=== PATIENT | female | born 1955 | race Caucasian/White ===

== ENCOUNTER → 2016-07-22 16:21 | Outpatient (CLI) | payer MEDICAID ==
[2015-12-23 10:06] VITALS: BMI 31.8
[~2016-07-22 16:21] MED LIST: ALEVE220 MG; ALEVE220 MG PO; ASPIRIN81 MG PO; ATIVAN0.5 MG PO; BAYER CHEWABLE81 MG PO; BRILINTA90 MG PO; CELEXA20 MG PO; COUMADIN5 MG PO; COUMADIN7.5 MG PO; CYCLOBENZAPRINE10 MG PO; HEMOCYTE PLUS C1 CAP PO; HYDROCODONE-APA1 TAB PO; LIPITOR10 MG PO; PLAVIX75 MG PO; ULTRAM50 MG PO; VOLTAREN100 GM TOPICAL; XANAX0.5 MG PO
== END | disposition home or self-care (01) ==
LOC: D.LABREF 16:21
DX: M17.11 Unilateral primary osteoarthritis, right knee (principal); Z11.8 Encounter for screening for other infectious and parasitic diseases

== ENCOUNTER 2016-07-27 22:08 | Outpatient (CLI) | payer MEDICAID ==
[~2016-07-27] VITALS: Ht 167.6 cm; Wt 83.2 kg
--- NOTE | ~2016-07-27 | HEMODYNAMI ---
PATIENT:ROSSY GREENE MEDICAL RECORD: [id number] : 51 [id number] ADMISSION DATE: 07/28/16 Generatedon:07/28/201614:42 Patient name: ROSSY GREENE Patient #: [id number] SSN: [id number] : 1955 Date of study: 07/28/2016 Page: Of Hemodynamic Procedure Report Patient Data Patient Demographics Procedure consent was obtained First Name: ROSSY Gender: Female Last Name: RAMONA : 1955 Middle Initial: JAGDEEP Age: 61 year(s) Patient #: [id number] Race: SSN: [id number] Additional ID: [id number] Contact details [address]: [address] [place] [address] State: [place] City: [place] Zip code: [address] Past Medical History History of disease Date Diagnosis Comments CAD Admission Admission Data Admission Date: 07/28/2016 Admission Time: 11:14 Arrival Date: 07/28/2016 Arrival Time: 0:00 Admit Source: Emergency Insurance Payor: Medicaid department Room #: D.2114 Height (in.): 65.75 BSA: 1.92 (m2) Height (cm.): 167 BMI: 29.76 (kg/m2) Weight (lbs.): 182.98 Weight (kg.): 83 Lab Results Lab Result Date: 07/28/2016 Lab Result Time: 0:00 Biochemistry Name Units Result Min Max BUN mg/dl 17 --(---*)-- 7 18 Creatinine mg/dl 0.6 --(*---)-- 0.6 1.3 CBC Name Units Result Min Max Hemoglobin g/dl 11.3 *-(----)-- 13.5 17.5 Procedure Procedure Types Cath Procedure Diagnostic Procedure LHC LHC w/Coronaries w/Grafts FFR/IVUS PCI Procedure Coronary Stent Initial Procedure Description Procedure Date Procedure Date: 07/28/2016 Procedure Start Time: 14:20 Procedure End Time: 14:39 Procedure Staff Name Function Jonn Wilson MD Performing Physician Deja Phillip RT Scrub Anne Marie Hamilton RN Nurse Trent Watson RT Expressive Art Therapist María Britt RT Monitor Procedure Data Cath Procedure Fluoroscopy Diagnostic fluoroscopy Total fluoroscopy Time: 5.7 time: 5.7 min min Diagnostic fluoroscopy Total fluoroscopy dose: 752 dose: 752 mGy mGy Contrast Material Contrast Material Type Amount (ml) Isovue 300 119 Entry Location Entry Primary Successful Side Size Upsize Upsize Entry Closure Succes sful Closure Location (Fr) 1 (Fr) 2 (Fr) Remarks Device Remarks Femoral Right 5 Fr 6 Fr artery Short Estimated blood loss: 10 ml Diagnostic catheters Device Type Used For End Catheter Placement Cordis 5Fr Pigtail LV Angiography Catheter (MP) Cordis 5Fr JL 4.0 Left Coronary Catheter (MP) Angiography Cordis 5Fr 3DRC Catheter Right Coronary (MP) Angiography Cordis Infinity 5Fr AR 2 SVG Angiography MOD catheter Procedure Complications No complications Procedure Medications Medication Administration Route Dosage Oxygen NC 2 l/min Lidocaine 2% added to field 20 Heparin Flush Bag added to field 2 bags (1000units/500ml NS) Versed I.V. 1 mg Fentanyl I.V. 50 mcg Versed I.V. 1 mg Fentanyl I.V. 50 mcg Versed I.V. 1 mg Fentanyl I.V. 50 mcg Fentanyl I.V. 50 mcg Heparin Bolus I.V. 4000 units Integrilin (Bolus I.V. 7.3 ml 2mg/ml) Plavix P.O. 600 mg Hemodynamics Rest BSA: 1.92 (m2) HGB: 11.3 (g/dl) O2 Consumption: Estimated: 175.22 (ml/min) O2 Co nsumption indexed: Estimated:91.26 (ml/min/m) Heart Rate: 63 (bpm) Snapshots Pre Cath Intra NCS Post Cath Vital Signs Time Heart Resp SPO2 NIBP (mmHg) Rhythm Pain Sedation Rate (ipm) (%) Status Level (bpm) 13:45:33 64 19 97 141/74(115) NSR 0 (11) 10(A) , No pain 13:49:53 58 17 97 140/66(104) NSR 0 (11) 10(A) , No pain 13:54:11 61 16 96 124/68(83) NSR 0 (11) 10(A) , No pain 13:58:24 60 14 97 126/68(99) NSR 0 (11) 10(A) , No pain 14:02:37 62 15 97 116/69(91) NSR 0 (11) 10(A) , No pain 14:06:49 73 19 95 118/63(86) NSR 0 (11) 10(A) , No pain 14:10:59 75 17 95 117/70(89) NSR 0 (11) 10(A) , No pain 14:15:11 74 14 95 117/65(98) NSR 0 (11) 10(A) , No pain 14:19:21 72 16 96 112/65(82) NSR 0 (11) 10(A) , No pain 14:23:29 80 16 97 132/70(93) NSR 0 (11) 9(A) , No pain 14:27:43 82 16 97 119/72(101) NSR 0 (11) 9(A) , No pain 14:31:55 82 16 97 121/66(87) NSR 0 (11) 9(A) , No pain 14:36:07 83 16 97 118/65(90) NSR 0 (11) 9(A) , No pain 14:38:46 78 16 97 116/67(88) NSR 0 (11) 10(A) , No pain Medications Time Medication Route Dose Verified Delivered Reason Notes Effectiveness by by 13:44:30 Oxygen NC 2 Jonn Anne Marie Per physician l/min Steve Hamilton RN 13:44:37 Lidocaine 2% added 20ml Jonn [place] used for to vial Steve Wilson MD procedure field 13:44:46 Heparin Flush added 2 Jonn Jonn used for Bag to bags Steve Wilson MD procedure (1000units/500ml field NS) 14:16:47 Versed I.V. 1 mg Jonn Anne Marie for sedation Steve Hamilton RN 14:16:53 Fentanyl I.V. 50 Jonn Anne Marie for sedation mcg Steve Hamilton RN 14:18:10 Versed I.V. 1 mg Jonn Anne Marie for sedation Steve Hamilton RN 14:18:17 Fentanyl I.V. 50 Jonn Anne Marie for sedation mcg Steve Hamilton RN 14:20:01 Versed I.V. 1 mg Jonn Anne Marie for sedation Steve Hamilton RN 14:20:07 Fentanyl I.V. 50 Jonn Anne Marie for sedation mcg Steve Hamilton RN 14:23:32 Fentanyl I.V. 50 Jonn Anne Marie for sedation mcg Steve Hamilton RN 14:33:43 Heparin Bolus I.V. 4000 Jonn Anne Marie for dose units Steve Hamilton RN anticoagulation verified wtih dr wilson 14:34:39 Integrilin I.V. 7.3 Jonn Anne Marie for (Bolus 2mg/ml) ml Steve Hamilton RN antiplatelet therapy 14:41:17 Plavix P.O. 600 Jonn Anne Marie for mg Steve Hamilton RN antiplatelet therapy Procedure Log Time Note 13:20:08 Trent Watson RT(R) sent for patient. Start room use. 13:39:35 Admit Source: Emergency department 13:40:05 Diagnostic Cath status Elective 13:40:48 Time tracking: Regular hours 13:40:54 Plan of Care:Hemodynamics will remain stable., Cardiac rhythm will remain stable., Comfort level will be maintained., Respiratory function will remain adequate., Patient/ family verbilizes understanding of procedure., Procedure tolerated without complication., Recovers from procedure without complications.. 13:41:11 Patient received from ED to CCL 1 Alert and oriented. Tansferred to table in Supine position. 13:41:12 Warm blankets applied, and sania hugger turned on for patient comfort. 13:41:13 Correct patient and procedure confirmed by team. 13:41:15 Signed procedure consent form obtained from patient. 13:41:28 H&P Date Dictated: 07/28/2016 Emergent; H&P N/A. 13:41:36 Pre-procedure instructions explained to patient. 13:41:40 Family in waiting room. 13:41:42 Patient NPO since Midnight. 13:41:49 Is the patient allergic to Iodine/contrast media? No. 13:41:52 Is patient on blood thinner?No 13:41:56 Patient diabetic? No. 13:42:00 Previous problem with sedation/anesthesia? No ? 13:42:06 Previous problem with sedation/anesthesia? Yes nauseated 13:42:09 Snore? Yes 13:42:11 Sleep apnea? No 13:42:12 Deviated septum? No 13:42:13 Opens mouth fully? Yes 13:42:15 Sticks out tongue? Yes 13:42:20 Dentures? Yes top in 13:44:20 Vital chart was started 13:44:30 Oxygen 2 l/min NC was given by Anne Marie Hamilton RN; Per physician; 13:44:37 Lidocaine 2% 20ml vial added to field was given by Jonn Wilson MD; used for procedure; 13:44:46 Heparin Flush Bag (1000units/500ml NS) 2 bags added to field was given by Jonn Wilson MD; used for procedure; 13:45:42 Patient pain scale 0/10 ?. 13:45:52 IV patent on arrival in right antecubital with 0.9% NaCl at [facility]. 13:46:27 Lab results completed and on chart. 13:46:59 Lab Result : Creatinine 0.6 mg/dl 13:46:59 Lab Result : BUN 17 mg/dl 13:46:59 Lab Result : Hemoglobin 11.3 g/dl 13:47:00 ECG and BP/O2 sat monitors applied to patient. 13:47:05 Right groin area was prepped with chlora-prep and draped in sterile fashion 13:47:07 Alarms reviewed by R. N. 13:47:07 Sharps counted by scrub and verified by R.N. 13:47:14 Baseline sample Acquired. 13:47:20 Rhythm: sinus rhythm 13:47:22 Full Disclosure recording started 13:47:43 Physician paged 13:48:40 Use device set Femoral Dx 13:56:53 Acist Syringe opened to sterile field. 13:56:54 Bag Decanter opened to sterile field. 13:56:54 Cardinal Cath Pack opened to sterile field. 13:56:55 Terumo 5Fr [place] Sheath opened to sterile field. 13:56:55 St Taco 260cm J .035 wire opened to sterile field. 13:57:02 Acist Hand Control opened to sterile field. 13:57:03 Acist Manifold opened to sterile field. 13:57:04 Cordis Infinity 5Fr Multipack catheter opened to sterile field. 13:57:05 Tegaderm 4 x 4 opened to sterile field. 13:59:53 Patient Height : 167 cm 14:00:01 Patient Weight : 83 kg 14:00:13 Arrival Date: 07/28/2016 12:00:00 AM 14:00:35 Insurance Payor : Medicaid 14:01:03 Procedure type changed to Cath procedure, Diagnostic procedure, LHC, LHC w/Coronaries w/Grafts, FFR/IVUS, PCI procedure, Coronary Stent Initial 14:03:00 Zero performed for pressure channel P1 14:16:27 Physician arrived 14:16:27 --------ALL STOP TIME OUT------ 14:16:28 Final Timeout: patient, procedure, and site verified with staff and physician. All members of the team are in agreement. 14:16:34 Right groin site verified by team. 14:16:40 Physical assessment completed. ASA score P 2 - A patient with mild systemic disease as per Jonn Wilson MD. 14:16:44 Sedation plan: IV Moderate Sedation Versed, Fentanyl 14:16:47 Versed 1 mg I.V. was given by Anne Marie Hamilton RN; for sedation; 14:16:53 Fentanyl 50 mcg I.V. was given by Anne Marie Hamilton RN; for sedation; 14:18:10 Versed 1 mg I.V. was given by Anne Marie Hamilton RN; for sedation; 14:18:17 Fentanyl 50 mcg I.V. was given by Anne Marie Hamilton RN; for sedation; 14:20:01 Versed 1 mg I.V. was given by Anne Marie Hamilton RN; for sedation; 14:20:03 Procedure started. 14:20:07 Fentanyl 50 mcg I.V. was given by Anne Marie Hamilton RN; for sedation; 14:20:18 Local anesthetic to right femoral artery with Lidocaine 2% by Jonn Wilson MD.INITIAL ACCESS ONLY 14:20:28 A 5 Fr sheath was inserted into the Right Femoral artery 14:20:58 A Cordis 5Fr Pigtail Catheter (MP) was advanced over the wire and used for LV Angiography. 14:21:25 LV Function : Normal 14:21:32 EF : 55 % 14:21:41 Catheter removed. 14:21:58 A Cordis 5Fr JL 4.0 Catheter (MP) was advanced over the wire and used for Left Coronary Angiography. 14:22:27 Catheter removed. 14:23:25 A Cordis 5Fr 3DRC Catheter (MP) was advanced over the wire and used for Right Coronary Angiography. 14:23:32 Fentanyl 50 mcg I.V. was given by Anne Marie Hamilton RN; for sedation; 14:23:59 Catheter removed. 14:26:19 A Cordis Infinity 5Fr AR 2 MOD catheter was advanced over the wire and used for SVG Angiography.RCA 14:26:20 Catheter removed. 14:27:34 PushSpring BasixCompak Inflation Kit opened to sterile field. 14:27:34 Chegue.látronic Launcher 6Fr AR 2.0 SH guide catheter opened to sterile field. 14:27:35 Ob Hospitalist Groupumo 6Fr [place] Sheath opened to sterile field. 14:27:35 NEXAGEisper J 300cm 0.014 guide wire opened to sterile field. 14:27:36 Sedicii [place] IVUS Catheter opened to sterile field. 14:28:01 Sheath upsized to a 6 Fr Short. 14:28:12 ACC PCI Site: pRCA has ?% stenosis. 14:28:21 6 Fr AR 2 guide catheter was inserted over the wire 14:28:58 Guide catheter removed. 14:29:12 Medtronic Launcher 6Fr AR 1.0 SH guide catheter opened to sterile field. 14:29:42 6 Fr AR! guide catheter was inserted over the wire 14:29:50 whisper wire advanced. 14:30:59 Wire advanced across lesion. 14:31:08 IVUS catheter advanced over wire. 14:31:13 IVUS pass to RCA lesion performed. 14:32:26 IVUS catheter removed over wire. 14:33:43 Heparin Bolus 4000 units I.V. was given by Anne Marie Hamilton RN; for anticoagulation; dose verified wt dr wilson 14:33:48 ACC PCI Site: dRCA has 72% stenosis. 14:33:50 ACC Pre-intervention LEORA Flow is 3. 14:34:39 Integrilin (Bolus 2mg/ml) 7.3 ml I.V. was given by Anne Marie Hamilton RN; for antiplatelet therapy; 14:34:46 Inflation Number: 1 A Medtronic Resolute 3.0 X 12 stent was prepped and advanced across the Dist RCA. The stent was deployed at 17 ALEXANDREA for 0:10 (min:sec). 14:36:07 Cordis 6Fr Exoseal opened to sterile field. 14:36:19 Wire removed. 14:36:20 Guide catheter removed. 14:36:29 Procedure ended.(Physican Out) 14:36:47 Fluoroscopy time 05.70 minutes. 14:36:54 Flurop Dose total: 752 14:36:54 Fluoroscopy dose: 752 mGy 14:37:01 Contrast amount:Isovue 300 119ml. 14:37:04 Sharps counted by scrub and verified by R.N. 14:37:09 Insertion/operative site no bleeding no hematoma. 14:37:15 Post-op/insertion site Right Femoral artery dressed using a 4 x 4 and Tegaderm. 14:37:19 Post right femoral artery:stable 14:37:22 Post Procedure Pulses reassessed and unchanged 14:37:29 Post-procedure physical assessment completed. ASA score P 2 - A patient with mild systemic disease as per Jonn Wilson MD. 14:37:33 Post procedure rhythm: unchanged. 14:37:37 Estimated blood loss: 10 ml 14:37:39 Post procedure instruction explained to patient.Patient verbalizes understanding. 14:37:59 Procedure and supply charges have been captured, reviewed, submitted and are correct. 14:38:52 Procedure Complication : No complications 14:38:55 Vital chart was stopped 14:38:57 See physician's report for complete and final results. 14:39:03 Report given to [facility]. 14:39:08 Patient transfered to [facility] with Bed. 14:39:10 Procedure ended. 14:39:10 Full Disclosure recording stopped 14:39:20 ACC-PCI Only Patient was given prescriptions, or instructed by Jonn Wilson MD to start/continue the following medications upon discharge: Plavix 14:39:21 End room use (Document Last) 14:41:17 Plavix 600 mg P.O. was given by Anne Marie Hamilton RN; for antiplatelet therapy; Intervention Summary Intervention Notes Time ActionType Lesion and Equipment Action# Pressure Duration Attributes Used 14:34:46 Place stent Dist RCA Medtronic 1 17 00:10 Resolute 3.0 X 12 stent Device Usage Item Name Manufacture Quantity Catalog Hospital Part Current Minimal Lot# / Number Charge Number Stock Stock Serial# Code Acist Acist 1 18515 444655 399674 790150 20 Syringe Medical Systems Inc Bag Microtek 1 2002S 693480 18665 043266 5 Decanter Medical Inc. Cardinal Cardinal 1 [id number] 295818 96655 415659 5 Cath Pack Health Terumo 5Fr Terumo 1 OFF742 991456 897476 080490 [address] [place] [address] Taco St Taco 1 666604 828979 979302 282149 30 260cm J .035 wire Acist Hand Acist 1 15433 321647 262256 299962 5 Control Medical Systems Inc Acist Acist 1 24761 629130 823743 000298 5 Manifold Medical Systems Inc Cordis Cardinal 1 [id number] 547828 97796 308231 30 Infinity Health 5Fr Multipack catheter Tegaderm 4 3M 1 1626W 252381 507676 860334 5 x 4 Cordis 5Fr Cardinal 1 759644 5 Pigtail Health Catheter (MP) Cordis 5Fr Cardinal 1 034251 5 JL 4.0 Health Catheter (MP) Cordis 5Fr Cardinal 1 691521 5 3DRC Health Catheter (MP) Cordis Cardinal 1 [id number] 430887 698186 574051 20 Infinity Health 5Fr AR 2 MOD catheter Merit Merit 1 [id number] 139423 827620 359231 15 [facility] Medical Inflation Kit Medtronic Medtronic 1 [id number] 343860 97832 856444 1 Launcher 6Fr AR 2.0 SH guide catheter Terumo 6Fr Terumo 1 [id number] 340049 469108 551141 40 [place] Sheath Moore Moore 1 [id number] 233909 038024 839089 5 Whisper J Vascular 300cm 0.014 guide wire [place] 1 [id number] 998652 134692 044711 8 [place] IVUS Catheter Medtronic Medtronic 1 [id number] 131693 77063 673157 1 Launcher 6Fr AR 1.0 SH guide catheter Medtronic Medtronic 1 [id number] 651500 802707 2 [id number] Resolute 3.0 X 12 stent Cordis 6Fr Cardinal 1 [id number] 718206 703996 813087 10 Exoseal Health Signature Audit [place] Stage Time Signature Unsigned Intra-Procedure 07/28/2016 María Britt 2:42:15 PM RT(R) Signatures Monitor : María Britt Signature : RT Date : Time : [address] [address]
[~2016-07-27 22:08] MED LIST changes: -ATIVAN0.5 MG PO
[2016-07-27 22:41] LABS: BASOPHILS 0.1 % (0.0-2.0); EOSINOPHILS 1.9 % (0-7); HEMATOCRIT 38.2 % (36.0-48.0); HEMOGLOBIN 12.1 g/dL (12-16); IMMATURE GRANULOCYTES 0.2 % (0-5); LYMPHOCYTES 27.3 % (15-50); MCH 25.7 pg (26.0-34.0); MCHC 31.7 g/dL (31.0-37.0); MCV 81.3 fL (80.0-100.0); MEAN PLATELET VOLUME 9.8 fL (7.4-10.4); MONOCYTES 8.9 % (2-11); NEUTROPHILS 61.6 % (40-80); PLATELET COUNT 275 10x3/uL (130-400); RDW 14.1 % (11.5-14.5); WBC 10.1 10x3/uL (4.8-10.8)
[2016-07-27 23:02] LABS: ALBUMIN 3.2 g/dL (3.4-5.0); ALKALINE PHOSPHATASE 105 U/L (46-116); ALT (SGPT) 21 U/L (10-68); CALC OSMOLALITY 278 mosm/kg (275-300); CALCIUM 8.7 mg/dL (8.5-10.1); CARBON DIOXIDE 29.2 mmol/L (21.0-32.0); CHLORIDE - SERUM 103 mmol/L (98-107); CREATININE - SERUM 0.7 mg/dL (0.6-1.3); GLUCOSE 105 mg/dL (74-106); POTASSIUM - SERUM 3.6 mmol/L (3.5-5.1); PROTEIN - SERUM 6.9 g/dL (6.4-8.2); SODIUM 138 mmol/L (136-145); UREA NITROGEN 20 mg/dL (7-18); eGFR NON AFRICAN AMERICAN 90 mL/min (90-120)
[2016-07-27 23:13] LABS: CHOL - HDL RATIO 3.6 ratio (2.3-4.1); CHOLESTEROL, TOTAL 207 mg/dL (0-200); CKMB 0.9 U/L (0.0-3.6); CREATINE KINASE 97 UL (21-215); HDL CHOLESTEROL 58 mg/dL (32-96); LDL CHOLESTEROL 128 mg/dL (0-100); LDL-HDL RATIO 2.2 ratio (1.5-3.5); TRIGLYCERIDE 109 mg/dL (30-200); TROPONIN-I < 0.017 ng/mL (0.000-0.060)
[2016-07-28 04:01] VITALS: BP 128/68; Ht 167.6 cm; Wt 83.2 kg
[2016-07-28 07:17] LABS: CKMB 0.5 U/L (0.0-3.6); CREATINE KINASE 70 UL (21-215); TROPONIN-I < 0.017 ng/mL (0.000-0.060)
[2016-07-28 08:27] LABS: BASOPHILS 0.1 % (0.0-2.0); EOSINOPHILS 2.4 % (0-7); HEMATOCRIT 36.3 % (36.0-48.0); HEMOGLOBIN 11.3 g/dL (12-16); IMMATURE GRANULOCYTES 0.1 % (0-5); MCH 25.6 pg (26.0-34.0); MCHC 31.1 g/dL (31.0-37.0); MCV 82.1 fL (80.0-100.0); MONOCYTES 8.7 % (2-11); NEUTROPHILS 53.7 % (40-80); PLATELET COUNT 267 10x3/uL (130-400); RBC 4.42 10x6/uL (4.00-5.40); RDW 14.3 % (11.5-14.5)
[2016-07-28 08:34] LABS: CALC OSMOLALITY 288 mosm/kg (275-300); CARBON DIOXIDE 26.2 mmol/L (21.0-32.0); CHLORIDE - SERUM 108 mmol/L (98-107); CREATININE - SERUM 0.6 mg/dL (0.6-1.3); GLUCOSE 94 mg/dL (74-106); POTASSIUM - SERUM 3.7 mmol/L (3.5-5.1); SODIUM 144 mmol/L (136-145); UREA NITROGEN 17 mg/dL (7-18); eGFR NON AFRICAN AMERICAN > 90 mL/min (90-120)
[2016-07-28 08:49] LABS: WBC 7.2 10x3/uL (4.8-10.8)
[2016-07-28 12:36] LABS: CKMB 0.4 U/L (0.0-3.6); CREATINE KINASE 68 UL (21-215); TROPONIN-I < 0.017 ng/mL (0.000-0.060)
--- NOTE | 2016-07-28 12:53 | NUR ---
RECIVED FROM ER PER WC TO ROOM 2114. FAMILY AT SIDE. ADMIT PER RN.
--- NOTE | 2016-07-28 13:01 | NUR ---
TRANSFER FROM ER BY W/Ángel GONZALEZ TO ROOM. CALL LIGHT IN REACH. WILL CONT. PLAN O CARE.
--- NOTE | 2016-07-28 13:28 | NUR ---
TO KNOT CUTTER PER BED
--- NOTE | 2016-07-28 14:45 | NUR ---
RETURN FROM KENNEL AIDE PER BED. RT JOCELYNE RUBI D/D. PULSE PALP
[2016-07-28 16:00] VITALS: BP 139/66
[2016-07-28] MEDS ORDERED: PLAVIX75 MG PO (16:09)
--- NOTE | 2016-07-28 17:05 | NUR ---
WITHOUT CHANGES NOTED AT THIS TIME.
--- NOTE | 2016-07-31 16:40 | OP ---
PATIENT NAME: ROSSY GRENEE MEDICAL RECORD: [id number] :51 LOCATION:D.CAT ADMISSION DATE: SURGEON: ALEXANDER ROYAL MD DATE OF OPERATION: 07/28/2016 PROCEDURES: 1. PTCA stent, RCA through saphenous vein graft. 2. Intravascular ultrasound, RCA. 3. Left heart catheterization. 4. Selective coronary angiography. 5. Left ventriculogram. 6. Vein graft angiography. INDICATION: Angina, unstable, coronary artery disease. PROCEDURE IN DETAIL: After informed consent was obtained and after a detailed explanation of the risks, benefits as well as alternative therapies, the patient elected to proceed with angiogram and angioplasty. The right femoral area was prepped and draped in normal sterile fashion. The right femoral artery was cannulated via modified Seldinger technique with placement of 6-Mohawk sheath. All catheters exchanged through this sheath. FINDINGS: Left ventriculogram was performed in standard 30-degree HALLMAN view, reveals preserved cardiac wall motion, ejection fraction 55%. SELECTIVE CORONARY ANGIOGRAPHY: 1. Left main is with no significant angiographic disease. 2. Left anterior descending has mild irregularities, but no flow-limiting stenosis. 3. The left circumflex shows moderate irregularities, but no flow-limiting stenosis. 4. Right coronary artery is totally occluded proximally. 5. Vein graft to the right coronary artery is patent; however, there is a 74% stenosis confirmed by intravascular ultrasound after the patent vein graft. PERCUTANEOUS TRANSLUMINAL CORONARY ANGIOPLASTY STENT OF THE RIGHT CORONARY ARTERY THROUGH THE VEIN GRAFT: Stent used was a 3.0 x 12 mm Resolute. Result was 0% residual stenosis. OVERALL IMPRESSION: Successful percutaneous transluminal coronary angioplasty stent of the right coronary artery through the vein graft going from 74% initial stenosis to 0% residual. TRANSINT:[id number] Voice Confirmation ID: [id number] DOCUMENT ID: [id number] ALEXANDER ROYAL MD at 1640 CC: [id number] DICTATION DATE: 07/28/16 1442 VIDEO GAME ENGINEER: 07/28/16 1500 DEP CLI 07/28/16 [place] [id number]
== END 2016-07-28 19:05 | disposition home or self-care (01) ==
LOC: OBSVTIME → D.CATH 22:08 → D.ER 22:08 → EDSTATUS 07-28 10:00 → D.CATH 07-28 11:14 → D.M2 07-28 11:14 → OBSVTIME 07-28 11:14 → D.M2 07-28 11:14 → D.CATH 07-28 19:05 → D.M2 07-28 19:05
PROVIDERS: Emergency Medicine; Internal Medicine Interventional Cardiology
DX: I25.110 Atherosclerotic heart disease of native coronary artery with unstable angina pectoris (principal); I10 Essential (primary) hypertension; Z86.73 Personal history of transient ischemic attack (TIA), and cerebral infarction without residual deficits; Z79.82 Long term (current) use of aspirin; Z79.899 Other long term (current) drug therapy; Z87.891 Personal history of nicotine dependence

== ENCOUNTER 2016-07-30 13:08 | Observation (INO) | payer MEDICAID ==
[~2016-07-30] VITALS: Ht 167.6 cm; Wt 83.5 kg
--- NOTE | ~2016-07-30 | HEMODYNAMI ---
PATIENT:ROSSY GREENE MEDICAL RECORD: [id number] : 51 LOCATION:[facility] D.[address] [facility]# [id number] ADMISSION DATE: 07/30/16 Generatedon:07/31/201614:07 Patient name: ROSSY GREENE Patient #: [id number] SSN: [id number] : 1955 Date of study: 07/31/2016 Page: Of Hemodynamic Procedure Report Patient Data Patient Demographics Procedure consent was obtained First Name: ROSSY Gender: Female Last Name: RAMONA : 1955 Middle Initial: JAGDEEP Age: 61 year(s) Patient #: [id number] Race: SSN: [id number] Additional ID: [id number] Contact details Address: [address] [place] [address] State: [place] City: [place] Zip code: [address] Past Medical History History of disease Date Diagnosis Comments CAD Admission Admission Data Admission Date: 07/30/2016 Admission Time: 19:00 Arrival Date: 07/31/2016 Arrival Time: 0:00 Admit Source: Other Insurance Payor: Medicare Room #: D.2121 Height (in.): 66 BSA: 1.93 (m2) Height (cm.): 167.64 BMI: 29.54 (kg/m2) Weight (lbs.): 183 Weight (kg.): 83.01 Lab Results Lab Result Date: 07/31/2016 Lab Result Time: 0:00 Biochemistry Name Units Result Min Max BUN mg/dl 16 --(---*)-- 7 18 Creatinine mg/dl 0.7 --(*---)-- 0.6 1.3 CBC Name Units Result Min Max Hemoglobin g/dl 12.6 -*(----)-- 13.5 17.5 Procedure Procedure Types Cath Procedure Diagnostic Procedure LHC LHC w/Coronaries w/Grafts Procedure Description Procedure Date Procedure Date: 07/31/2016 Procedure Start Time: 13:49 Procedure End Time: 14:04 Procedure Staff Name Function Morena Matos RT Scrub Yaakov Ibrahim RN Nurse Srinivas Medina RN Biod[employer]el Plant Operations Engineer María Britt RT Monitor Kiko Rosales MD Performing Physician Procedure Data Cath Procedure Fluoroscopy Diagnostic fluoroscopy Total fluoroscopy Time: 4.6 time: 4.6 min min Diagnostic fluoroscopy Total fluoroscopy dose: 3.4 dose: 3.4 mGy mGy Contrast Material Contrast Material Type Amount (ml) Isovue 300 70 Entry Location Entry Primary Successful Side Size Upsize Upsize Entry Closure Succes sful Closure Location (Fr) 1 (Fr) 2 (Fr) Remarks Device Remarks Femoral Right 5 Fr Exoseal artery Estimated blood loss: 10 ml Diagnostic catheters Device Type Used For End Catheter Placement Cordis 5Fr JL 4.0 Procedure Catheter (MP) Cordis 5Fr 3DRC Catheter Procedure (MP) Cordis 5Fr Pigtail Procedure Catheter (MP) Cordis Infinity 5Fr MPA-2 Procedure catheter Cordis Infinity 5Fr AR 2 Procedure MOD catheter Procedure Complications No complications Procedure Medications Medication Administration Route Dosage Oxygen NC 2 l/min Lidocaine 2% added to field 20 Heparin Flush Bag added to field 2 bags (1000units/500ml NS) 0.9% NaCl I.V. 100 ml/hr Versed I.V. 1 mg Fentanyl I.V. 50 mcg Versed I.V. 1 mg Fentanyl I.V. 50 mcg Versed I.V. 1 mg Fentanyl I.V. 50 mcg Hemodynamics Rest BSA: 1.93 (m2) HGB: 12.6 (g/dl) O2 Consumption: Estimated: 172.31 (ml/min) O2 Co nsumption indexed: Estimated:89.28 (ml/min/m) Heart Rate: 58 (bpm) Pressure Samples Time Site Value (mmHg) Purpose Heart Use Rate(bpm) 13:55 LV 113/13,19 Snapshot 71 13:56 AO 119/67(91) Pullback 83 13:56 LV 107/17,21 Pullback 83 Gradients Valve Time Site 1 Site 2 Mean SEP/DFP Peak To Heart Use (mmHg) (sec/min) Peak Rate (mmHg) (bpm) Aortic 13:56 LV AO 0 15 0 83 107/17,21 119/67(91) Calculations Valve P-P Mean Valve Index Valve Source Name Gradient Area Flow (cm2) Aortic 0 0 0 0 Snapshots Pre Cath Intra NCS Post Cath Vital Signs Time Heart Resp SPO2 etCO2 IV3doxw NIBP Rhythm Pain Sedation Rate (ipm) (%) (mmHg) (mmHg) (mmHg) Status Level (bpm) 13:44:15 58 16 99 0 0 116/57(87) NSR 0 (11) 10(A) , No pain 13:48:31 64 14 98 0 0 106/52(72) NSR 0 (11) 10(A) , No pain 13:52:39 73 16 98 0 0 112/62(79) NSR 0 (11) 9(A) , No pain 13:56:51 72 17 95 0 0 107/61(82) NSR 0 (11) 9(A) , No pain 14:01:00 75 18 99 0 0 117/57(82) NSR 0 (11) 9(A) , No pain 14:03:38 74 16 97 0 0 99/51(79) NSR 0 (11) 10(A) , No pain Medications Time Medication Route Dose Verified Delivered Reason Notes Effe ctiveness by by 13:39:41 Oxygen NC 2 Jonn Buffie used for l/min Steve Ibrahim RN procedure 13:39:50 Lidocaine 2% added 20ml Kiko Kiko for local to vial [facility] anesthetic field MD MURRAY 13:40:30 Heparin Flush added 2 Kiko Kiko used for Bag to bags [facility] procedure (1000units/500ml field MD MURRAY NS) 13:40:47 0.9% NaCl I.V. 100 Kiko Hoganie Per ml/hr St. Ole Ibrahim RN physician 13:46:13 Versed I.V. 1 mg K[address]ie for [facility]. Ole Ibrahim RN sedation 13:46:19 Fentanyl I.V. 50 K[address] for mcg [facility] Ole Ibrahim RN sedation 13:50:49 Versed I.V. 1 mg Kiko Edisonie for [facility] Ole Ibrahim RN sedation 13:50:53 Fentanyl I.V. 50 K[address] for mcg [facility] Ole Ibrahim RN sedation 13:58:08 Versed I.V. 1 mg Kiko [address]ie for [facility] Ole Ibrahim RN sedation 13:58:12 Fentanyl I.V. 50 K[address] for mcg [facility] Ole Ibrahim RN sedation Procedure Log Time Note 13:24:17 Admit Source: Other 13::20 Arrival Date: 07/31/2016 12:00:00 AM 13:27:30 Lab Result : BUN 16 mg/dl 13::30 Lab Result : Hemoglobin 12.6 g/dl 13:27:30 Lab Result : Creatinine 0.7 mg/dl 13::44 Diagnostic Cath Status : Salvage 13:28:42 Srinivas Medina RN sent for patient. Start room use. 13::44 Time tracking: Regular hours 13:28:50 Plan of Care:Hemodynamics will remain stable., Cardiac rhythm will remain stable., Comfort level will be maintained., Respiratory function will remain adequate., Patient/ family verbilizes understanding of procedure., Procedure tolerated without complication., Recovers from procedure without complications.. 13:29:32 Patient received from Med II to CCL 1 Alert and oriented. Tansferred to table in Supine position. 13:29:36 Warm blankets applied, and sania hugger turned on for patient comfort. 13:29:37 Correct patient and procedure confirmed by team. 13:29:41 Signed procedure consent form obtained from patient. 13:29:50 H&P Date Dictated: 07/31/2016 Within 30 days and on chart.. 13:29:52 Pre-procedure instructions explained to patient. 13:29:54 Family in waiting room. 13:29:56 Patient NPO since Midnight. 13:30:06 Is the patient allergic to Iodine/contrast media? No. 13:30:08 Is patient on blood thinner?Yes 13:30:12 ACC The patient was administered the following blood thiners within the last 24 hours: ACCPlavix 13:30:15 Patient diabetic? No. 13:30:18 Snore? Yes 13:30:28 Dentures? Yes in tight 13:30:32 Sleep apnea? No 13:30:33 Deviated septum? No 13:30:34 Opens mouth fully? Yes 13:30:35 Sticks out tongue? Yes 13:30:39 Airway obstruction? No ? 13:31:06 Patient pain scale 0/10 ?. 13:31:17 IV patent on arrival in right forearm with 0.9% NaCl at O. 13:31:46 Lab results completed and on chart. 13:39:06 Right groin area was prepped with chlora-prep and draped in sterile fashion 13:39:08 Alarms reviewed by R. N. 13:39:09 Sharps counted by scrub and verified by R.N. 13:39:20 Use device set Femoral Dx 13:39:21 Acist Syringe opened to sterile field. 13:39:22 Bag Decanter opened to sterile field. 13:39:22 Cardinal Cath Pack opened to sterile field. 13:39:23 Terumo 5Fr Gila Bend Sheath opened to sterile field. 13:39:23 St Taco 260cm J .035 wire opened to sterile field. 13:39:24 Acist Hand Control opened to sterile field. 13:39:25 Acist Manifold opened to sterile field. 13:39:26 Cordis Infinity 5Fr Multipack catheter opened to sterile field. 13:39:26 Tegaderm 4 x 4 opened to sterile field. 13:39:41 Oxygen 2 l/min NC was given by Yaakov Ibrahim RN; used for procedure; 13:39:50 Lidocaine 2% 20ml vial added to field was given by Kiko Rosales MD; for local anesthetic; 13:40:30 Heparin Flush Bag (1000units/500ml NS) 2 bags added to field was given by Kiko Rosales MD; used for procedure; 13:40:47 0.9% NaCl 100 ml/hr I.V. was given by Yaakov Ibrahim RN; Per physician; 13:43:09 ECG and BP/O2 sat monitors applied to patient. 13:43:10 Vital chart was started 13:43:11 Baseline sample Acquired. 13:43:14 Rhythm: sinus rhythm 13:43:15 Full Disclosure recording started 13:43:20 Physician paged 13:43:56 Patient Weight : 183 lbs 13:43:58 Patient Height : 66 inches 13:44:23 Insurance Payor : Medicare 13:45:29 Physician arrived 13:45:30 --------ALL STOP TIME OUT------ 13:45:31 Final Timeout: patient, procedure, and site verified with staff and physician. All members of the team are in agreement. 13:45:33 Right groin site verified by team. 13:45:42 Physical assessment completed. ASA score P 2 - A patient with mild systemic disease as per Kiko Rosales MD. 13:45:46 Sedation plan: IV Moderate Sedation Versed, Fentanyl 13:46:13 Versed 1 mg I.V. was given by Yaakov Ibrahim RN; for sedation; 13:46:19 Fentanyl 50 mcg I.V. was given by Yaakov Ibrahim RN; for sedation; 13:48:37 Zero performed for pressure channel P1 13:48:44 Zero performed for pressure channel P1 13:48:59 Zero performed for pressure channel P1 13:49:10 Procedure started. 13:49:36 Local anesthetic to right femoral artery with Lidocaine 2% by Kiko Rosales MD.INITIAL ACCESS ONLY 13:50:49 Versed 1 mg I.V. was given by Yaakov Ibrahim RN; for sedation; 13:50:53 Fentanyl 50 mcg I.V. was given by Yaakov Ibrahim RN; for sedation; 13:50:58 A 5 Fr sheath was inserted into the Right Femoral artery 13:51:05 J wire advanced. 13:51:21 A Cordis 5Fr JL 4.0 Catheter (MP) was advanced over the wire and used for Procedure. 13:51:33 LCA angiography performed. 13:52:16 Catheter removed. 13:52:26 A Cordis 5Fr 3DRC Catheter (MP) was advanced over the wire and used for Procedure. 13:53:27 RCA angiography performed. 13:54:16 Catheter removed. 13:54:34 A Cordis 5Fr Pigtail Catheter (MP) was advanced over the wire and used for Procedure. 13:55:01 LV hemodynamics recorded. 13:56:32 LV gram done using HALLMAN 13:56:35 Catheter removed. 13:58:08 Versed 1 mg I.V. was given by Yaakov Ibrahim RN; for sedation; 13:58:12 Fentanyl 50 mcg I.V. was given by Yaakov Ibrahim RN; for sedation; 13:58:22 A Cordis Infinity 5Fr MPA-2 catheter was advanced over the wire and used for Procedure. 13:59:18 Catheter removed. unable to cannulate vessel. 13:59:46 A Cordis Infinity 5Fr AR 2 MOD catheter was advanced over the wire and used for Procedure. 14:00:02 SVG to RCA angiography performed. 14:01:14 Catheter removed. 14:01:16 Cordis 5Fr Exoseal opened to sterile field. 14:01:35 Sheath removed intact; hemostasis achieved with Exoseal to the Right Femoral artery. 14:02:01 Procedure ended.(Physican Out) 14:02:22 Fluoroscopy time 04.60 minutes. 14:02:29 Fluoroscopy dose: 3.4 mGy 14:02:29 Flurop Dose total: 3.4 14:02:39 Contrast amount:Isovue 300 70ml. 14:02:41 Sharps counted by scrub and verified by R.N. 14:02:43 Insertion/operative site no bleeding no hematoma. 14:02:50 Post right femoral artery:stable 14:03:12 Post Procedure Pulses reassessed and unchanged 14:03:19 Post-procedure physical assessment completed. ASA score P 2 - A patient with mild systemic disease as per Kiko Rosales MD. 14:03:23 Post procedure rhythm: sinus rhythm 14:03:27 Estimated blood loss: 10 ml 14:03:28 Post procedure instruction explained to patient.Patient verbalizes understanding. 14:03:30 Patient needs reinforcement of post procedure teaching. 14:03:34 Procedure and supply charges have been captured, reviewed, submitted and are correct. 14:04:05 Procedure Complication : No complications 14:04:08 Vital chart was stopped 14:04:09 See physician's report for complete and final results. 14:04:11 Report given to [facility] II. 14:04:14 Patient transfered to Med II with Stretcher. 14:04:17 Procedure ended. 14:04:17 Full Disclosure recording stopped 14:04:20 End room use (Document Last) Device Usage Item Name Manufacture Quantity Catalog Hospital Part Current Minimal Lo t# / Number Charge Number Stock Stock Serial# Code Acist Acist 1 90139 974666 299307 [id number] 20 Syringe [employer] Inc Bag Microtek 1 2002S 694350 74737 891671 5 Decanter [employer] Inc. Cardinal Cardinal [address] 203187 72216 453333 5 [facility] RNB929 676121 356802 456214 [address] Taco St Taco 1 163713 802947 940667 683522 30 260cm J .035 wire Acist Acist 1 99530 105144 791049 225328 5 Hand PlanHQ Control Systems Inc Acist Acist 1 73761 171142 928308 656160 5 B[employer] Inc Cordis Cardinal 1 MI2504 127796 25511 125625 30 Mang?rKart 5Fr Multipack catheter Tegaderm 1 1626W 430890 774189 728853 5 4 x 4 Cordis Cardinal 1 988796 5 5Fr JL Health 4.0 Catheter (MP) Cordis Cardinal 1 413237 5 5Fr 3DRC Health Catheter (MP) Cordis Cardinal 1 560603 5 5Fr Health Pigtail Catheter (MP) Cordis Cardinal 1 [id number] 914595 731617 775392 5 Mang?rKart 5Fr MPA-2 catheter Cordis Cardinal 1 [id number] 192086 260944 219260 20 Mang?rKart 5Fr AR 2 MOD catheter Cordis Cardinal 1 EX500 770929 519359 592535 10 5Fr Health Exoseal Signature Audit [place] Stage Time Signature Unsigned Intra-Procedure 07/31/2016 María Britt 2:07:25 PM RT(R) Signatures Monitor : María Britt Signature : RT Date : Time : [place] [address] [place] [address]
[2016-07-30 14:14] LABS: BASOPHILS 0.2 % (0.0-2.0); EOSINOPHILS 1.5 % (0-7); HEMATOCRIT 39.9 % (36.0-48.0); HEMOGLOBIN 12.6 g/dL (12-16); IMMATURE GRANULOCYTES 0.1 % (0-5); LYMPHOCYTES 20.1 % (15-50); MCH 26.1 pg (26.0-34.0); MCHC 31.6 g/dL (31.0-37.0); MCV 82.6 fL (80.0-100.0); MEAN PLATELET VOLUME 9.8 fL (7.4-10.4); MONOCYTES 9.2 % (2-11); NEUTROPHILS 68.9 % (40-80); PLATELET COUNT 271 10x3/uL (130-400); RBC 4.83 10x6/uL (4.00-5.40); WBC 9.5 10x3/uL (4.8-10.8)
[2016-07-30 15:02] LABS: ALBUMIN 3.4 g/dL (3.4-5.0); ALKALINE PHOSPHATASE 108 U/L (46-116); ALT (SGPT) 24 U/L (10-68); BILIRUBIN - TOTAL 0.17 mg/dL (0.2-1.3); CALC OSMOLALITY 286 mosm/kg (275-300); CALCIUM 9.4 mg/dL (8.5-10.1); CARBON DIOXIDE 25.8 mmol/L (21.0-32.0); CHLORIDE - SERUM 106 mmol/L (98-107); CREATININE - SERUM 0.6 mg/dL (0.6-1.3); GLUCOSE 94 mg/dL (74-106); POTASSIUM - SERUM 3.8 mmol/L (3.5-5.1); PROTEIN - SERUM 6.8 g/dL (6.4-8.2); SODIUM 143 mmol/L (136-145); UREA NITROGEN 19 mg/dL (7-18); eGFR NON AFRICAN AMERICAN > 90 mL/min (90-120)
[2016-07-30 15:13] LABS: CHOL - HDL RATIO 3.9 ratio (2.3-4.1); CHOLESTEROL, TOTAL 214 mg/dL (0-200); CKMB 0.7 U/L (0.0-3.6); CREATINE KINASE 79 UL (21-215); HDL CHOLESTEROL 55 mg/dL (32-96); LDL CHOLESTEROL 139 mg/dL (0-100); LDL-HDL RATIO 2.5 ratio (1.5-3.5); TRIGLYCERIDE 102 mg/dL (30-200); TROPONIN-I 0.018 ng/mL (0.000-0.060)
--- NOTE | 2016-07-30 19:55 | NUR ---
RECIEVED TO ROOM 2120 FROM THE E.R. VIA STRETCHER. PT A&O, VITALS STABLE, PLAED ON TELEMETRY, 67 SR PER COSMETIC DENTIST. O2 AT 2 LITE VIA NC. IV TO RIGHT HAND SL, SITE CLEAN AND DRY. PT DENIES PAIN OR NEEDS, MULTIPLE FAMILY AT BED SIDE, BED LOW, CL IN REACH.
[2016-07-30 20:00] VITALS: BP 115/53
[2016-07-30] MEDS ORDERED: ATIVAN0.5 MG PO (20:05)
[2016-07-30 22:14] VITALS: Ht 167.6 cm; Wt 83.5 kg
--- NOTE | 2016-07-30 22:39 | NUR ---
IV TO RIGHT HAND LEAKING, REMOVED IV CATH, TIP INTACT. COVERED WITH 2X2 AND TAPE. IV RESITED TO RIGHT FOREARM, 22 GUAGE FIRST ATTEMPT, PT TOLERATED WELL. MORPHINE 2 MG GIVEN FOR C/O CHEST PAIN. PT REMAINS SR ON MONITOR. WILL CONT TO MONITOR.
[2016-07-31] VITALS: BP 108/64
--- NOTE | 2016-07-31 03:12 | NUR ---
RESTING WITH EYES CLOSED, RESPERATIONS EVEN, NO S/S DISTRESS NOTED.
[2016-07-31 04:00] VITALS: BP 128/73
--- NOTE | 2016-07-31 04:02 | NUR ---
SOFTWARE QA MANAGER AT BEDSIDE TO OBTAIN VITALS, CALL LIGHT IN REACH. WILL CONTINUE TO MONITOR.
--- NOTE | 2016-07-31 04:11 | NUR ---
ULTRAM 1 TAB GIVEN FOR C/O HEADACHE.
--- NOTE | 2016-07-31 07:20 | NUR ---
ASSESSMENT COMPLETED.ALERT AND ORIENTED. TELEMERTY SHOWS SR 61. RIGHT FA SL.. PT DENIES ANY NEEDS.AWAITING DOCTOR. CALL LIGHT IN REACH WITH SR UP. WILL MONITOR
[2016-07-31 08:04] VITALS: BP 106/55
--- NOTE | 2016-07-31 08:09 | NUR ---
RESTING QUIETLY NAD NOTED
[2016-07-31 10:05] LABS: CALC OSMOLALITY 278 mosm/kg (275-300); CALCIUM 8.9 mg/dL (8.5-10.1); CARBON DIOXIDE 27.9 mmol/L (21.0-32.0); CHLORIDE - SERUM 103 mmol/L (98-107); CREATININE - SERUM 0.7 mg/dL (0.6-1.3); GLUCOSE 101 mg/dL (74-106); SODIUM 139 mmol/L (136-145); UREA NITROGEN 16 mg/dL (7-18); eGFR NON AFRICAN AMERICAN 90 mL/min (90-120)
[2016-07-31 10:27] LABS: BASOPHILS 0.3 % (0.0-2.0); EOSINOPHILS 3.3 % (0-7); HEMATOCRIT 39.1 % (36.0-48.0); HEMOGLOBIN 12.3 g/dL (12-16); IMMATURE GRANULOCYTES 0.2 % (0-5); LYMPHOCYTES 24.5 % (15-50); MCH 25.8 pg (26.0-34.0); MCHC 31.5 g/dL (31.0-37.0); MCV 82.1 fL (80.0-100.0); MEAN PLATELET VOLUME 9.7 fL (7.4-10.4); MONOCYTES 8.4 % (2-11); NEUTROPHILS 63.3 % (40-80); PLATELET COUNT 280 10x3/uL (130-400); RBC 4.76 10x6/uL (4.00-5.40); RDW 14.2 % (11.5-14.5)
[2016-07-31 10:28] LABS: WBC 6.5 10x3/uL (4.8-10.8)
[2016-07-31 11:48] VITALS: BP 113/71
--- NOTE | 2016-07-31 13:25 | NUR ---
TO CATH BAB PER BED
--- NOTE | 2016-07-31 14:25 | NUR ---
BACK FROM CATH. V/S STABLE. RIGHT GROIN SOFT WITH DRSG DRY AND INTACT. PPP. WILL MONITOR. NO NEEDS VOICED. FAMILY AT BEDSIDE
--- NOTE | 2016-07-31 14:54 | NUR ---
V/S STABLE. RIGHT GROIN SOFT WITH DRSG DRY AND INTACT. PT EATING A SANDWICH. NO NEEDS VOICED.
--- NOTE | 2016-07-31 15:36 | NUR ---
AWAKE AND ALERT. V/S STABLE. RIGHT GROIN SOFT, DRSG DRY AND INTACT. PPP. TELEMERTY SHOWS SR. SR UP WITH CALL LIGHT IN REACH WILL MONITOR
--- NOTE | 2016-07-31 16:31 | NUR ---
PT DISCHARGED. RIGHT GROIN SOFT AND NO BLEEDING. IV DCD WITH TIP INTACT. TO PRIVATE CAR PER WHEELCHAIR
--- NOTE | 2016-08-05 14:16 | OP ---
PATIENT NAME: ROSSY GREENE MEDICAL RECORD: [id number] :51 LOCATION:D.M2 D.2121 ADMISSION DATE:07/30/16 SURGEON: IKE POSEY MD DATE OF OPERATION: 07/31/2016 PROCEDURE: Left heart catheterization, selective coronary angiography, right femoral artery approach. CATHETERS: A 5-German sheath, 5/4 left and right Nacho, 5/4 pig. The procedure was well tolerated. The patient returned to man, sheath was removed. ExoSeal device was placed. FINDINGS: Left ventriculography in the 30-degree HALLMAN view: Normal wall motion, normal systolic function. CORONARY ANATOMY: LEFT MAIN: Left main is free of disease. LAD: Free of disease in the diagonal system. CIRCUMFLEX: Free of disease in the marginal system. RIGHT CORONARY ARTERY: Totally occluded. BYPASS GRAFT: 1. Bypass graft to the right is widely patent. 2. Previously placed stent is widely patent. IMPRESSION: Widely patent recent stenting, noncardiac cause of chest pain. TRANSINT:[id number] Voice Confirmation ID: [id number] DOCUMENT ID: [id number] IKE POSEY MD at 1416 CC: [id number] DICTATION DATE: 07/31/16 1412 PHARMACIST MANAGER: 07/31/16 1748 DIS IN 07/31/16 [place] [address] [place] [address]
--- NOTE | 2016-08-05 14:16 | HP ---
PATIENT: ROSSY GREENE MEDICAL RECORD: [id number] ACCOUNT: [id number] LOCATION:. D.2120 : 51 ADMISSION DATE: 07/30/16 HISTORY AND PHYSICAL EXAMINATION HISTORY OF PRESENT ILLNESS: A 61-year-old lady with known history of coronary artery disease, most recent is intervention to the right after stenting. She has had not been pain free since her bypass surgery, pain has both typical and atypical features. It is reproducible with exertion. She became quite concerned. Enzymes are negative. ECG is without acute change. She was admitted for further evaluation. PAST MEDICAL HISTORY: Otherwise includes: 1. History of coronary artery disease as described above. 2. Dyslipidemia. 3. Anxiety. 4. Osteoarthritis. ALLERGIES: None known. MEDICATIONS: Includes Flexeril 10 t.i.d., Plavix 75 q. day, atorvastatin 10 every day, aspirin 81 every day, Celexa 20 every day, Ativan 0.5 p.o. b.i.d. SOCIAL HISTORY: She lives here in [place]. She is a nonsmoker. Easily takes care of all ADLs. REVIEW OF SYSTEMS: The patient reports easy bruising but reports no swollen glands. The patient reports no fever, no night sweats, no significant weight gain, no significant weight loss. No significant exercise tolerance. The patient reports no dry eyes, no irritation, no vision change. Patient reports no difficulty hearing and no ear pain. Patient reports no frequent nose bleeds or nose and sinus problems. Patient reports on arm pain on exertion. No shortness of breath while lying down. No history of heart murmur. Patient reports no cough, no wheezing or coughing up blood. Patient reports no abdominal pain, no vomiting. Normal appetite. No diarrhea and not vomiting blood. No nausea and no constipation. Patient reports no incontinence. No difficulty urinating. No hematuria. No increased frequency. Patient reports no muscle aches. No weakness, no arthralgias, no back pain. No swelling of the extremities. Patient reports no abnormal mole, no jaundice, no rashes. Reports no loss of consciousness. No weakness and no numbness. No seizures, dizziness, or headaches. The patient reports no depression, no sleep disturbance, feeling safe in a relationship and no alcohol abuse. Patient reports on fatigue. Reports no runny nose or sinus pressure. No itching, no hives, and no frequent sneezing. PHYSICAL EXAMINATION: GENERAL: Pleasant female in no acute distress. VITAL SIGNS: 106/55, pulse 60 and regular. HEENT: Normocephalic and atraumatic. NECK: No JVD or bruit. HEART: Regular. LUNGS: Rodney clear. ABDOMEN: Soft and nontender. EXTREMITIES: Pulse 2+ and equal with no edema. NEUROLOGICAL: Grossly intact. HISTORY AND PHYSICAL [id number] ROSSY GREENE IMPRESSION: Coronary artery disease, status post recent intervention, continued exertional angina. PLAN: Revisualization. TRANSINT:[id number] Voice Confirmation ID: [id number] DOCUMENT ID: [id number] IKE POSEY MD at 1416 CC: [id number] DICTATION DATE: 07/31/16819 RETAIL SHIFT SUPERVISOR: 07/31/16 1016 DIS IN 07/31/16 [facility] [address] [place] [address]
--- NOTE | 2016-10-01 14:36 | DS ---
PATIENT:ROSSY RGEENE :51 MEDICAL RECORD: [id number] DISCHARGE SUMMARY ADMISSION DATE: 07/30/16 DISCHARGE DATE: 07/31/16 DISCHARGE DIAGNOSES: 1. Known history of coronary artery disease, status post intervention. 2. Dyslipidemia. 3. Osteoarthritis. 4. Anxiety. BRIEF HISTORY AND HOSPITAL COURSE: Admitted with chest pain, underwent diagnostic angiography showed patent stents, patent bypass grafts. Discharged home in good condition. ACTIVITY: As tolerated. DIET: AHA diet. FOLLOWUP: Regularly scheduled appointment. TRANSINT:[id number] Voice Confirmation ID: [id number] DOCUMENT ID: [id number] IKE POSEY MD at 1436 CC: [id number] DICTATION DATE: 09/29/16 1429 PSYCHOLOGICAL OPERATIONS: 09/30/16 0359 DIS IN 07/31/16 [place] [id number] [place] [address]
== END 2016-07-31 16:35 | disposition home or self-care (01) ==
LOC: D.ER 13:08 → OBSVTIME 19:00 → D.M2 19:00
PROVIDERS: Emergency Medicine; Internal Medicine Interventional Cardiology; ADMIT Internal Medicine Cardiovascular Disease
DX: R07.89 Other chest pain (principal); I25.119 Atherosclerotic heart disease of native coronary artery with unspecified angina pectoris; Z95.5 Presence of coronary angioplasty implant and graft; Z95.1 Presence of aortocoronary bypass graft; E78.5 Hyperlipidemia, unspecified; F41.9 Anxiety disorder, unspecified

== ENCOUNTER → 2017-03-08 08:44 | Outpatient (CLI) | payer MEDICAID ==
[~2017-03-08 08:44] MED LIST changes: +ATIVAN0.5 MG PO
== END | disposition home or self-care (01) ==
LOC: D.RAD 08:44
DX: R13.10 Dysphagia, unspecified (principal)

== ENCOUNTER → 2017-03-11 08:50 | Outpatient (CLI) | payer MEDICAID | END | disposition home or self-care (01) | LOC: D.NM 03-10 09:00 | DX: R10.9 Unspecified abdominal pain (principal) ==

== ENCOUNTER → 2017-04-12 12:09 | Outpatient (CLI) | payer MEDICAID ==
[~2017-04-12 12:09] MED LIST changes: +ASPIRIN EC81 M1 PO; +CEFUROXIME250 MG PO; +ELIQUIS2.5 MG PO; +FLUTICASONE PRO16 GM NASAL; +HYDROCODON-ACE1 EAC7 PO; +KEFLEX500 MG PO; +OXYCODONE HCL5 MG PO; +TRAVATAN Z2.5 ML EACH EYE; +VITAMIN D31000 UNI2 PO
== END | disposition home or self-care (01) ==
LOC: D.LABREF 12:09
DX: M17.11 Unilateral primary osteoarthritis, right knee (principal); Z11.8 Encounter for screening for other infectious and parasitic diseases

== ENCOUNTER 2017-04-21 10:00 | Inpatient (IN) | payer MEDICAID ==
[~2017-04-21 10:00] MED LIST changes: -ASPIRIN EC81 M1 PO; -CEFUROXIME250 MG PO; -ELIQUIS2.5 MG PO; -FLUTICASONE PRO16 GM NASAL; -HYDROCODON-ACE1 EAC7 PO; -KEFLEX500 MG PO; -OXYCODONE HCL5 MG PO; -TRAVATAN Z2.5 ML EACH EYE; -VITAMIN D31000 UNI2 PO
[2017-04-21] MEDS ORDERED: CEFUROXIME250 MG PO (11:26)
[2017-04-21] MEDS ORDERED: FLUTICASONE PRO16 GM NASAL (11:27)
[2017-04-21 12:08] LABS: BASOPHILS 0.1 % (0-2); EOSINOPHILS 2.6 % (0-7); HEMATOCRIT 40.3 % (36.0-48.0); HEMOGLOBIN 12.4 g/dL (12-16); IMMATURE GRANULOCYTES 0.2 % (0-5); LYMPHOCYTES 22.9 % (15-50); MCH 24.1 pg (26.0-34.0); MCHC 30.8 g/dL (31.0-37.0); MCV 78.4 fL (80.0-100.0); MEAN PLATELET VOLUME 9.1 fL (7.4-10.4); MONOCYTES 7.3 % (2-11); NEUTROPHILS 66.9 % (40-80); PLATELET COUNT 315 10x3/uL (130-400); RBC 5.14 10x6/uL (4.00-5.40); WBC 8.4 10x3/uL (4.8-10.8)
[2017-04-21 12:15] LABS: APTT 26.9 SECONDS (22.8-39.4)
[2017-04-21 12:16] LABS: APPEARANCE CLEAR (CLEAR); BILIRUBIN NEGATIVE (NEGATIVE); COLOR YELLOW (YELLOW); GLUCOSE NEGATIVE (NEGATIVE); INR 0.92 (0.85-1.17); KETONE NEGATIVE (NEGATIVE); NITRITE NEGATIVE (NEGATIVE); PROTEIN NEGATIVE (NEGATIVE); PROTIME 12.2 SECONDS (11.6-15.0); UROBILINOGEN NORMAL (NORMAL)
[2017-04-21 12:18] LABS: BACTERIA FEW /hpf (NONE SEEN); RED CELLS - URINE 0-5 /hpf (0-5)
[2017-04-21 12:29] LABS: CALC OSMOLALITY 281 mosm/kg (275-300); CALCIUM 9.5 mg/dL (8.5-10.1); CARBON DIOXIDE 29.7 mmol/L (21.0-32.0); CHLORIDE - SERUM 104 mmol/L (98-107); CREATININE - SERUM 0.6 mg/dL (0.6-1.3); GLUCOSE 95 mg/dL (74-106); POTASSIUM - SERUM 3.6 mmol/L (3.5-5.1); SODIUM 141 mmol/L (136-145); UREA NITROGEN 16 mg/dL (7-18); eGFR NON AFRICAN AMERICAN > 90 mL/min (90-120)
[2017-04-27 10:56] VITALS: BP 124/67; BMI 29.1
[2017-04-27] MEDS ORDERED: TRAVATAN Z2.5 ML EACH EYE (11:04)
[2017-04-27 17:24] VITALS: BP 125/49
--- NOTE | 2017-04-27 17:25 | NUR ---
RECEIVED TO ROOM 2213 VIA BED FROM PACU. A/O X3. FAMILY IN ROOM. DRESSING TO RIGHT KNEE IS DRY AND INTACT. REPORTS NO PAIN AT THIS TIME. DENIES NEED.S
[2017-04-27 17:28] VITALS: BMI 29.4
--- NOTE | 2017-04-27 18:00 | NUR ---
ASSISTED WITH BED CHARLES PER STAFF. SKIN CARE PER STAFF. VOIDED 300 CC CLEAR YELLOW URINE.
--- NOTE | 2017-04-27 18:30 | NUR ---
CPM IN PLACE TO RIGHT KNEE. ATE ALL OF SANDWICH TRAY. DENIES NEEDS.
[2017-04-27 20:00] VITALS: BP 108/50
--- NOTE | 2017-04-27 21:16 | OP ---
PATIENT NAME: ROSSY SON MEDICAL RECORD: [id number] :51 LOCATION:D.MS [id number] ADMISSION DATE:04/27/17 SURGEON: ANGELICA AYALA DO DATE OF OPERATION: 04/27/2017 PROCEDURE PERFORMED: Right total knee arthroplasty. PREOPERATIVE DIAGNOSIS: Right knee severe degenerative joint disease. POSTOPERATIVE DIAGNOSIS: Right knee severe degenerative joint disease. INDICATIONS: The patient is a 61-year-old female who presented to my office having failed conservative management for right knee osteoarthritis. She had tried injections and physical therapy and been tired of the right knee pain, preventing her from doing her activities of daily living. She requests a total knee arthroplasty be done. The risks and benefits were discussed with her in the clinic and she consented to the procedure verbally. DESCRIPTION OF PROCEDURE: Ms. Son was given a block in the preoperative area by anesthesia and then taken to the operative suite, placed in supine position. The right leg was identified, prepped and draped in sterile fashion. Timeout was performed. Everyone was in agreement that the right leg was the correct leg and right total knee was the one being performed and that Ms. Son was indeed Ms. Son. She was given 2 grams of Ancef preoperatively. Once this was done, the incision was marked out with a skin marker and then Ioban was placed over the knee. The leg was then exsanguinated with the Esmarch and the tourniquet was inflated. Once this was done, the incision was made down to the capsule with a 10 blade and a new blade was used to do the capsulotomy in a medial parapatellar approach. The medial side of the tibia was released at that time due to the varus deformity seen on the x-ray in the patient. The fat pad was taken out at that time as well and the patella was everted and sized, and milled down for the patellar implant. The knee was then flexed. Retractors were placed in and the distal femoral cut was made after entering the distal femur and the intramedullary canal for the guide. The guide was put in place in the femur. Distal femur cut was made. Attention was then drawn to the tibia. Retractors were placed on either side of the tibia, medial and lateral, and the guide was placed. A 2 mm of tibia was cut at that time. The extension block was then placed and seen to be in good position after the menisci were removed from the medial and lateral side. The femur was then sized to be 60, was drilled and the 4-in-1 block was used to make the cut, anterior and posterior chamfer cuts were made. The bone was then removed. The implant was then placed on it and the tibial tray with the poly was floated in and was fitting too tight. Two more mm were taken off at that point of the tibia and then the tibial tray with 10 poly fit well. The knee was ranged and rotation was marked. Once this was done, the holes were drilled on the femur. The tibial tray and poly were taken out and the 34 size was used to drill in the patella, the 3 peg holes. Once this was done, the knee was brought into flexion and the tibia was prepped and sized to be a 71 and prepped. The cement was mixed at this time. Cement was then placed on the tibia and also on the tibial implant and put into place, impacted and excess cement was removed, it was impacted second time. The femur was then placed and sized to be a 60, and was then put in place and a 10 poly was placed in between them and placed on the [place] insurance claims adjuster extension. The patella was then everted. The drill holes were irrigated thoroughly and curetted, and dried well. Cement was placed in them as well as on the back of the patellar implant and the squeezer was put into place. Excess cement was OPERATIVE REPORT [id number] ROSSY SON removed off the patella. Once the cement hardened, the knee was ranged and a size 12 standard poly seemed to be the correct size and had well-balanced knee, this was done. The tourniquet was let down at 48 minutes, and once the poly was put into place, the bar locking mechanism was put into place as well. Jose was put in the knee. The knee was then brought into about 90 degrees of flexion and the capsule was closed using #1 pop-offs, tied in a [id number] fashion. The rest of the Jose was then used on top of the capsule and the skin was closed with 2-0 Vicryl inverted interrupted stitches and then the ZipLine was placed over the skin incision and tightened. Adaptic, 4 x 4s, ABD, Webril and Jose Ramon wrap were then placed on the knee and a GRISELDA hose stocking was placed up to the knee. Total tourniquet time was 48 minutes as stated before and there was approximately 100 mL of blood loss. TRANSINT:[id number] Voice Confirmation ID: [id number] DOCUMENT ID: [id number] ANGELICA AYALA DO at 2116 CC: [id number] DICTATION DATE: 04/27/171657 FILTER PULP WASHER: 04/27/172015 ADM IN [facility] [address] [place] [address]
--- NOTE | 2017-04-27 23:36 | NUR ---
REC'D. AT [facility]. OF SHIFT.RIGHT LEG IN CPM. OLGA. WELL.DRSG. DRY AND INTACT.FOOT PINK AND WARM. STATES REMAINS NUMB BUT CAN WIGGLE TOES PEDAL PULSE PRESENT. WILL CONTINUE TO MONITOR FOR ANY CHGES. IN NEUROVASCULAR STATUS AND FOLLOW CURRENT PLAN OF CARE.
[2017-04-28] VITALS: BP 98/47
[2017-04-28 04:00] VITALS: BP 113/55
--- NOTE | 2017-04-28 04:45 | NUR ---
PATIENT RESTING IN BED AND DENIES NEEDS AT THIS TIME. FIXED PT'S IV PUMP THAT WAS ALARMING. BED IN LOWEST POSITION AND CALL LIGHT WITHIN REACH. ENCOURAGED THE PATIENT TO CALL IF SHE HAS NEEDS.
[2017-04-28 06:05] LABS: HEMOGLOBIN 10.8 g/dL (12-16); MCH 24.3 pg (26.0-34.0); MCHC 30.9 g/dL (31.0-37.0); MCV 78.7 fL (80.0-100.0); MEAN PLATELET VOLUME 9.4 fL (7.4-10.4); RBC 4.45 10x6/uL (4.00-5.40); RDW 14.9 % (11.5-14.5); WBC 14.5 10x3/uL (4.8-10.8)
--- NOTE | 2017-04-28 07:50 | NUR ---
A&O, CPM ON, DENIES NEEDS, NO DISTRESS NOTED, CALL LIGHT IN REACH, WILL CONTINUE TO MONITOR
[2017-04-28 08:34] VITALS: BP 106/41
[2017-04-28 10:20] LABS: ALBUMIN 3.3 g/dL (3.4-5.0); ALKALINE PHOSPHATASE 111 U/L (46-116); ALT (SGPT) 19 U/L (10-68); CALC OSMOLALITY 281 mosm/kg (275-300); CALCIUM 8.9 mg/dL (8.5-10.1); CARBON DIOXIDE 28.2 mmol/L (21.0-32.0); CHLORIDE - SERUM 105 mmol/L (98-107); CREATININE - SERUM 0.7 mg/dL (0.6-1.3); GLUCOSE 134 mg/dL (74-106); POTASSIUM - SERUM 4.5 mmol/L (3.5-5.1); PROTEIN - SERUM 6.3 g/dL (6.4-8.2); SODIUM 140 mmol/L (136-145); UREA NITROGEN 15 mg/dL (7-18); eGFR NON AFRICAN AMERICAN 90 mL/min (90-120)
[2017-04-28 12:16] VITALS: BP 98/42
--- NOTE | 2017-04-28 12:35 | NUR ---
SITTING IN CHAIR AT BEDSIDE, DENIES NEEDS, EATING LUNCH, WILL CONTINUE TO MONITOR
[2017-04-28 17:12] VITALS: BP 118/64
--- NOTE | 2017-04-28 17:25 | NUR ---
PT SITTING UP IN BED WITH COMPLAINTS OF PAIN OF A 5 ON A SCALE OF 1-10. NO MEDICATION TO BE GIVEN AT THIS TIME. BED IN LOW POSITION AND CALL LIGHT WITHIN REACH. WILL CONTINUE TO MONITOR.
[2017-04-28 20:00] VITALS: BP 117/39
--- NOTE | 2017-04-28 20:30 | NUR ---
REC'D. IN BED CPM IN PLACE LOGA. WELL DENIES PAIN OR ANY OTHER DISCOMFORT AT PRESENT TIME.FOOT PINK AND WARM PEDAL PULSE PRESENT. WIGGLES TOES AND DORSIFLEXES.DENIES CALF PAIN OR TENDERNESS. WILL CONTINUE TO MONITOR FOR ANY CHGES. AND FOLLOW CURRENT PLAN OF CARE.
[2017-04-29] VITALS: BP 122/49
--- NOTE | 2017-04-29 01:06 | NUR ---
PATIENT IS AWAKE, ALERT AND ORIENTED X'S 4. RESPIRATIONS ARE EVEN AND UNLABORED ON ROOM AIR. PATIENT'S NURSE IS IN ROOM ADMINISTERING TORADOL IV. THE PATIENT DENIES NEEDS OTHER THEN NEEDING TO USE THE BATHROOM AFTER MEDICATION. BED IN LOWEST POSITION, CALL LIGHT IN REACH. BED RAILS UP X'S 2.
[2017-04-29 04:00] VITALS: BP 116/50
[2017-04-29 06:58] LABS: ALBUMIN 2.8 g/dL (3.4-5.0); ALKALINE PHOSPHATASE 95 U/L (46-116); ALT (SGPT) 16 U/L (10-68); CALC OSMOLALITY 282 mosm/kg (275-300); CALCIUM 8.6 mg/dL (8.5-10.1); CARBON DIOXIDE 26.3 mmol/L (21.0-32.0); CHLORIDE - SERUM 106 mmol/L (98-107); CREATININE - SERUM 0.7 mg/dL (0.6-1.3); GLUCOSE 113 mg/dL (74-106); POTASSIUM - SERUM 4.4 mmol/L (3.5-5.1); PROTEIN - SERUM 5.7 g/dL (6.4-8.2); SODIUM 141 mmol/L (136-145); UREA NITROGEN 15 mg/dL (7-18); eGFR NON AFRICAN AMERICAN 90 mL/min (90-120)
[2017-04-29 07:24] LABS: BASOPHILS 0.2 % (0-2); EOSINOPHILS 1.3 % (0-7); HEMATOCRIT 29.9 % (36.0-48.0); HEMOGLOBIN 9.8 g/dL (12-16); IMMATURE GRANULOCYTES 0.5 % (0-5); LYMPHOCYTES 18.3 % (15-50); MCH 24.9 pg (26.0-34.0); MCHC 32.8 g/dL (31.0-37.0); MEAN PLATELET VOLUME 10.1 fL (7.4-10.4); MONOCYTES 11.3 % (2-11); NEUTROPHILS 68.4 % (40-80); RBC 3.93 10x6/uL (4.00-5.40); RDW 15.1 % (11.5-14.5)
[2017-04-29 07:25] LABS: MCV 76.1 fL (80.0-100.0); PLATELET COUNT 164 10x3/uL (130-400); WBC 9.6 10x3/uL (4.8-10.8)
--- NOTE | 2017-04-29 07:30 | NUR ---
RECIEVED PT DURING WALKING ROUNDS. PT RESTING IN BED WITH COMPLAINTS OF PAIN OF A 6 ON A SCALE OF 1-10. MEDICATION TO BE GIVEN PER ORDER. ASSESSMENT DONE PER FLOWSHEET. BED IN LOW POSITION AND CALL LIGHT WITHIN REACH. WILL CONTINUE TO MONITOR.
[2017-04-29] MEDS ORDERED: ELIQUIS2.5 MG PO (07:59)
[2017-04-29] MEDS ORDERED: OXYCODONE HCL5 MG PO (08:00)
[2017-04-29] MEDS ORDERED: VITAMIN D31000 UNI2 PO (08:00)
[2017-04-29] MEDS ORDERED: KEFLEX500 MG PO (08:00)
[2017-04-29 08:33] VITALS: BP 130/52
--- NOTE | 2017-04-29 10:22 | NUR ---
Patient Name: ROSSY GREENE Admission Status: Elective Accout number: [id number] Admission Date: 04-27-2017 : 1955 Admission Diagnosis: Attending: ANGELICA AYALA Current LOS: 2 Anticipated DC Date: Planned Disposition: Home Primary Insurance: MEDICAID [place] Discharge Planning Comments: CM MET WITH PATIENT TO ASSESS DISCHARGE PLANNING NEEDS. PATIENT LIVES HOME ALONE INDEPENDENTLY WHERE SHE PLANS TO RETURN. SHE STATED THAT HER EXHUSBAND WILL BE THE ONE TO DRIVE HER HOME. SHE STATED THAT SHE HAD MULTIPLE FAMILY MEMBERS WHO WILL BE STAYING WITH HER DURING HER RECOVERY. SHE HAS 7 STEPS TO ENTER IN HER HOME. SHE STATED THAT SHE WANTS TO DO PT [facility] [place]. CM WILL SET THAT UP FOR HER PRIOR TO DISCHARGE. SHE HAS A WALKER, ELEVATED TOILET SEAT, CPM AND ICE MACHINE AT HOME. CM WILL CONTINUE TO ASSIST WITH DISCHARGE PLANNING NEEDS. PATIENT REFUSES HH . PCP: SAFIA HOOKSMarcus GREENE (EXHUSBAND) [phone] Flash Ranging Crewmember: Tg Ervin * Is the patient Alert and Oriented? Yes 0 * How many steps to enter\exit or inside your home? 7 0 * PCP [facility] 0 * Pharmacy [facility] 0 * Preadmission Environment Home Alone 0 * ADLs Independent 0 * Equipment Elevated [place] Seat Walker 0 * Other Equipment CPM ICE MACHINE 0 * List name and contact numbers for known caregivers / representatives who currently or will assist patient after discharge: DHEERAJ GREENE(EX ) [phone] 0 * Community resources currently utilized None 0 * Additional services required to return to the preadmission environment? Yes 0 * Can the patient safely return to the preadmission environment? Yes 0 * Has this patient been hospitalized within the prior 30 days at any hospital? No 0 Grand Total: 0
--- NOTE | 2017-04-29 10:52 | NUR ---
PATIENT SET UP FOR PT AT [facility] IN [place] FIRST APPOINTMENT IS FOR Wednesday04/30/17 AT 2:00. COPY OF APPOINTMENT GIVEN TO TIFFANIE DE LA GARZA FOR DISCHARGE INSTRUCTIONS. CM WILL CONTINUE TO FOLLOW AND ASSIST NEEDED
[2017-04-29 12:08] VITALS: BP 106/68
--- NOTE | 2017-04-29 12:10 | NUR ---
FLU SHOT GIVEN AND INFORMATION SHEET GIVEN TO PT.
--- NOTE | 2017-04-29 13:40 | NUR ---
PT DISCHARGED TO HOME
--- NOTE | 2017-04-30 11:03 | NUR ---
CM received a phone call last night from [facility] in [place] does not accept patients insurance. KACY called patient this am and she stated that she had already received a phone call from Dr Sexton's office this morning and that they were setting her up with PT to come to her house.
[2017-08-17] MEDS ORDERED: FLUTICASONE PRO16 GM NASAL (09:37)
[2017-08-17] MEDS ORDERED: ASPIRIN EC81 M1 PO (09:39)
== END 2017-04-29 14:19 | disposition home or self-care (01) | DRG 470 ==
LOC: D.SDCHOLD 10:00 → D.MS 04-27 06:19 → D.SDCHOLD 04-27 06:19 → D.MS 04-27 17:18
PROVIDERS: Anesthesiology; Family Medicine; ADMIT Orthopaedic Surgery
PROC: 0SRC0J9 Replacement of Right Knee Joint with Synthetic Substitute, Cemented, Open Approach (ICD-10-PCS; principal; 2017-04-27 11:30)
DX: M17.11 Unilateral primary osteoarthritis, right knee (principal); I25.10 Atherosclerotic heart disease of native coronary artery without angina pectoris; Z95.1 Presence of aortocoronary bypass graft; Z95.5 Presence of coronary angioplasty implant and graft; D64.9 Anemia, unspecified

== ENCOUNTER 2017-06-29 21:30 | Observation (INO) | payer MEDICAID ==
[~2017-06-29] VITALS: Ht 167.6 cm; Wt 83.9 kg
--- NOTE | ~2017-06-29 | HEMODYNAMI ---
PATIENT:ROSSY GREENE MEDICAL RECORD: [id number] : 51 LOCATION:D.MS [facility]rit[facility]2219 ADMISSION DATE: 06/30/17 Generatedon:06/30/201712:59 Patient name: ROSSY GREENE Patient #: [id number] SSN: [id number] : 1955 Date of study: 06/30/2017 Page: Of Hemodynamic Procedure Report Patient Data Patient Demographics Procedure consent was obtained First Name: ROSSY Gender: Female Last Name: RAMONA : 1955 Middle Initial: JAGDEEP Age: 62 year(s) Patient #: [id number] Race: SSN: [id number] Additional ID: [id number] Contact details Address: [address] [place] [address] State: [place] City: [place] Zip code: [address] Past Medical History History of disease Date Diagnosis Comments CAD Admission Admission Data Admission Date: 06/30/2017 Admission Time: 1:02 Room #: Ana Lilia.2219 Procedure Procedure Types Cath Procedure Diagnostic Procedure LHC LHC w/Coronaries w/Grafts Miscellaneous Procedures Moderate Sedation up to 15 minutes Procedure Description Procedure Date Procedure Date: 06/30/2017 Procedure Start Time: 12:45 Procedure End Time: 12:58 Procedure Staff Name Function Jonn Wilson MD Performing Physician Trent Watson RT Monitor Jose Lechuga RT Scrub Srinivas Medina RN Nurse Procedure Data Cath Procedure Fluoroscopy Diagnostic fluoroscopy Total fluoroscopy Time: 1.1 time: 1.1 min min Diagnostic fluoroscopy Total fluoroscopy dose: 105 dose: 105 mGy mGy Contrast Material Contrast Material Type Amount (ml) Isovue 300 50 Entry Location Entry Primary Successful Side Size Upsize Upsize Entry Closure Succes sful Closure Location (Fr) 1 (Fr) 2 (Fr) Remarks Device Remarks Femoral Right 5 Fr Exoseal artery Estimated blood loss: 10 ml Diagnostic catheters Device Type Used For End Catheter Placement MULTIPACK Pigtail 5 Fr Procedure catheter MULTIPACK JL 4.0 5Fr Procedure catheter DIAGNOSTIC AR 2 MOD 5 Fr Procedure catheter ([id number]) Procedure Complications No complications Procedure Medications Medication Administration Route Dosage Oxygen NC 2 l/min Heparin Flush Bag added to field 2 bags (1000units/500ml NS) 0.9% NaCl I.V. 100 ml/hr Fentanyl I.V. 50 mcg Versed I.V. 1 mg Zofran I.V. 4 mg Fentanyl I.V. 50 mcg Versed I.V. 1 mg Hemodynamics Rest Heart Rate: 69 (bpm) Pressure Samples Time Site Value (mmHg) Purpose Heart Use Rate(bpm) 12:48 AO 96/54(71) Snapshot 67 Snapshots Pre Cath Intra NCS Post Cath Vital Signs Time Heart Resp SPO2 etCO2 NIBP Rhythm Pain Sedation Rate (ipm) (%) (mmHg) (mmHg) Status Level (bpm) 12:38:08 65 17 95 0 138/72(88) NSR 0 (11) 10(A) , No pain 12:42:18 75 42 90 0 103/62(80) NSR 0 (11) 10(A) , No pain 12:46:30 69 38 98 38.9 115/58(86) NSR 0 (11) 9(A) , No pain 12:50:46 70 14 99 39.6 118/64(88) NSR 0 (11) 9(A) , No pain 12:55:00 73 14 100 41.1 111/65(80) NSR 0 (11) 9(A) , No pain Medications Time Medication Route Dose Verified Delivered Reason Notes Effec tiveness by by 12:35:19 Oxygen NC 2 Jonn Espino Per l/min Steve Medina RN physician 12:35:29 Heparin Flush added 2 Jonn Espino used for Bag to bags Steve Medina group work program aide (1000units/500ml field NS) 12:35:39 0.9% NaCl I.V. 100 Jonn Espino Per ml/hr Steve Medina RN physician 12:41:13 Fentanyl I.V. 50 Jonn Espino for mcg Steve Medina RN sedation 12:41:19 Versed I.V. 1 mg Jonn Espino for Steve Medina RN sedation 12:41:31 Zofran I.V. 4 mg Jonn Espino Per Steve Medina RN physician 12:44:31 Fentanyl I.V. 50 Jonn Espino for [facility] Steve Medina RN sedation 12:44:34 Versed I.V. 1 mg Jonn Espino for Steve Medina RN sedation Procedure Log Time Note 12:05:27 Srinivas Medina RN sent for patient. Start room use. 12:20:28 Time tracking: Regular hours 12:20:33 Plan of Care:Hemodynamics will remain stable., Cardiac rhythm will remain stable., Comfort level will be maintained., Respiratory function will remain adequate., Patient/ family verbilizes understanding of procedure., Procedure tolerated without complication., Recovers from procedure without complications.. 12:23:33 Patient received from Med/Surg to CCL 3 Alert and oriented. Tansferred to table in Supine position. 12:23:35 Warm blankets applied, and sania hugger turned on for patient comfort. 12:23:36 Correct patient and procedure confirmed by team. 12:23:38 Signed procedure consent form obtained from patient. 12:23:48 ECG and BP/O2 sat monitors applied to patient. 12:32:09 Vital chart was started 12:32:49 Baseline sample Acquired. 12:32:54 Rhythm: sinus rhythm 12:32:57 Full Disclosure recording started 12:33:01 H&P Date Dictated: 06/30/2017 Within 30 days and on chart.. 12:33:01 Pre-procedure instructions explained to patient. 12:33:02 Pre-op teaching completed and patient verbalized understanding. 12:33:05 Family in patients room. 12:33:06 Patient NPO since Midnight. 12:33:07 Is the patient allergic to Iodine/contrast media? No. 12:33:16 Is patient on blood thinner?Yes 12:33:18 ACC The patient was administered the following blood thiners within the last 24 hours: ACCPlavix 12:33:21 Patient diabetic? No. 12:33:24 Patient not . Patient is over age 55. 12:33:25 Previous problem with sedation/anesthesia? No ? 12:33:26 Snore? Yes 12:33:27 Sleep apnea? No 12:33:28 Deviated septum? No 12:33:29 Opens mouth fully? Yes 12:33:30 Sticks out tongue? Yes 12:33:45 Airway obstruction? No ? 12:33:57 Dentures? Yes IN 12:34:01 Pre procedure: right dorsailis pedis pulse 1+ Palpable, but thready & weak; easily obliterated 12:34:04 Patient pain scale 0/10 ?. 12:34:11 IV patent on arrival in right wrist with 0.9% NaCl at O. 12:34:15 Lab results completed and on chart. 12:34:22 Right groin area was prepped with chlora-prep and draped in sterile fashion 12:34:23 Alarms reviewed by R. N. 12:34:24 Sharps counted by scrub and verified by R.N. 12:35:19 Oxygen 2 l/min NC was administered by Srinivas Medina RN; Per physician; 12:35:29 Heparin Flush Bag (1000units/500ml NS) 2 bags added to field was administered by Srinivas Medina RN; used for procedure; 12:35:39 0.9% NaCl 100 ml/hr I.V. was administered by Srinivas Medina RN; Per physician; 12:36:42 Vital chart was stopped 12:36:43 Vital chart was started 12:37:48 Use device set Femoral Dx 12:37:51 Tegaderm 4 x 4 (1626W) opened to sterile field. 12:37:52 ACIST Manifold (23018) opened to sterile field. 12:37:56 ACIST Hand Control (52488) opened to sterile field. 12:37:57 ACIST Syringe (03076) opened to sterile field. 12:37:58 Bag Decanter (2001S) opened to sterile field. 12:37:58 Medline Cath Pack ([id number]) opened to sterile field. 12:37:58 SHEATH 5FR [place] (DUV796) opened to sterile field. 12:37:59 DIAGNOSTIC WIRE .035 260cm J wire (095547) opened to sterile field. 12:38:00 DIAGNOSTIC Multipack 5Fr catheter set ([id number]) opened to sterile field. 12:38:02 PERCUTANEOUS ENTRY 19GA needle opened to sterile field. 12:40:58 --------ALL STOP TIME OUT------ 12:40:59 Final Timeout: patient, procedure, and site verified with staff and physician. All members of the team are in agreement. 12:41:01 Right groin site verified by team. 12:41:04 Physical assessment completed. ASA score P 2 - A patient with mild systemic disease as per Jonn Wilson MD. 12:41:07 Sedation plan: IV Moderate Sedation Medication:Versed, Fentanyl 12:41:13 Fentanyl 50 mcg I.V. was administered by Srinivas Medina RN; for sedation; 12:41:19 Versed 1 mg I.V. was administered by Srinivas Medina RN; for sedation; 12:41:31 Zofran 4 mg I.V. was administered by Srinivas Medina RN; Per physician; 12:44:31 Fentanyl 50 mcg I.V. was administered by Srinivas Medina RN; for sedation; 12:44:34 Versed 1 mg I.V. was administered by Srinivas Medina RN; for sedation; 12:45:27 Procedure started. 12:45:34 Local anesthetic to right femoral artery with Lidocaine 2% by Jonn Wilson MD.INITIAL ACCESS ONLY 12:45:42 A 5 Fr sheath was inserted into the Right Femoral artery 12:45:45 Zero performed for pressure channel P1 12:47:02 A MULTIPACK Pigtail 5 Fr catheter was advanced over the wire and used for Procedure. 12:47:21 LV angiography performed. 12:47:22 LV gram done using HALLMAN 12:47:27 EF : 55 % 12:47:34 Injector settings: Ml/sec: 7, Volume: 15, 12:47:36 Catheter removed. 12:47:40 A MULTIPACK JL 4.0 5Fr catheter was advanced over the wire and used for Procedure. 12:48:38 LCA angiography performed. 12:48:51 Catheter removed. 12:49:16 A DIAGNOSTIC AR 2 MOD 5 Fr catheter ([id number]) was advanced over the wire and used for Procedure. 12:50:00 SVG to RCA angiography performed. 12:50:45 Catheter removed. 12:50:48 EXOSEAL 5Fr (EX500) opened to sterile field. 12:51:04 Sheath removed intact; hemostasis achieved with Exoseal to the Right Femoral artery. 12:51:57 Procedure ended.(Physican Out) 12:52:18 Fluoroscopy time 01.10 minutes. 12:: Fluoroscopy dose: 105 mGy 12:52:22 Flurop Dose total: 105 12:52:26 Contrast amount:Isovue 300 50ml. 12:52:27 Sharps counted by scrub and verified by R.N. 12:52:29 Insertion/operative site no bleeding no hematoma. 12:52:32 Post-op/insertion site Right Femoral artery dressed using a 4 x 4 and Tegaderm. 12:52:33 Post Procedure Pulses reassessed and unchanged 12:52:35 Post-procedure physical assessment completed. ASA score P 2 - A patient with mild systemic disease as per Jonn Wilson MD. 12:52:38 Post procedure rhythm: unchanged. 12:52:40 Estimated blood loss: 10 ml 12:52:42 Post procedure instruction explained to patient.Patient verbalizes understanding. 12:52:42 Patient needs reinforcement of post procedure teaching. 12:53:07 Procedure Complication : No complications 12:54:18 Procedure type changed to Cath procedure, Diagnostic procedure, LHC, LHC w/Coronaries w/Grafts, Miscellaneous Procedures, Moderate Sedation up to 15 minutes 12:54:31 Procedure and supply charges have been captured, reviewed, submitted and are correct. 12:57:44 See physician's report for complete and final results. 12:57:59 Report given to Other. 12:58:04 Patient transfered to Other with Bed. 12:58:05 Procedure ended. 12:58:05 Full Disclosure recording stopped 12:58:15 End room use (Document Last) 12:59:09 Vital chart was stopped Device Usage Item Name Manufacture Quantity Catalog Hospital Part Current Minimal Lot# / Number Charge Number Stock Stock Serial# Code Tegaderm 4 x 3M 1 1626W [id number] [id number] 5 4 (1626W) ACIST Acist 1 82823 750582 510142 693018 5 Manifold Medical (22972) Systems Inc ACIST Hand Acist 1 28712 860476 559613 926064 5 Control Medical (64565) Systems Inc ACIST Acist 1 34801 652883 613141 721990 20 Syringe Medical (77668) Systems Inc Bag Decanter Microtek 1 2001S 845587 69730 896984 5 () Medical Inc. Medline Cath Cardinal 1 [id number] 612911 95196 184832 5 Pack [facility] ([id number]) SHEATH 5FR Terumo 1 PHQ375 140274 710288 797029 40 [place] (KBZ391) DIAGNOSTIC St Taco 1 418022 347064 737614 143841 30 WIRE .035 260cm J wire (660216) DIAGNOSTIC Cardinal 1 CT7363 001085 87460 774730 30 Multipack Health 5Fr catheter set (HX0722) PERCUTANEOUS [facility] 1 N24907 838910 240145 5 ENTRY 19GA needle MULTIPACK Cardinal 1 492564 5 Pigtail 5 Fr Health catheter MULTIPACK JL Cardinal 1 373335 5 4.0 5Fr Health catheter DIAGNOSTIC Cardinal 1 [id number] 615244 458183 754996 20 AR 2 MOD 5 Health Fr catheter (589892W) EXOSEAL 5Fr Cardinal 1 EX500 348195 714609 564456 10 (EX500) Health Signature Audit [place] Stage Time Signature Unsigned Intra-Procedure 06/30/2017 Trent Watson 12:59:06 PM RT(R) Signatures Monitor : Trent Watson RT Signature : Date : Time : [place] [id number] ALBERTO HURLEY [address]
[~2017-06-29 21:30] MED LIST changes: +CEFUROXIME250 MG PO; +ELIQUIS2.5 MG PO; +FLUTICASONE PRO16 GM NASAL; +KEFLEX500 MG PO; +OXYCODONE HCL5 MG PO; +TRAVATAN Z2.5 ML EACH EYE; +VITAMIN D31000 UNI2 PO
[2017-06-29 22:35] LABS: BASOPHILS 0.2 % (0-2); HEMATOCRIT 33.3 % (36.0-48.0); HEMOGLOBIN 10.1 g/dL (12-16); IMMATURE GRANULOCYTES 0.1 % (0-5); LYMPHOCYTES 25.1 % (15-50); MCH 22.8 pg (26.0-34.0); MCHC 30.3 g/dL (31.0-37.0); MCV 75.2 fL (80.0-100.0); NEUTROPHILS 64.6 % (40-80); RBC 4.43 10x6/uL (4.00-5.40); RDW 15.2 % (11.5-14.5); WBC 8.6 10x3/uL (4.8-10.8)
[2017-06-29 22:38] LABS: PLATELET COUNT 319 10x3/uL (130-400)
[2017-06-29 22:45] LABS: ALBUMIN 3.4 g/dL (3.4-5.0); ALKALINE PHOSPHATASE 114 U/L (46-116); ALT (SGPT) 17 U/L (10-68); BILIRUBIN - TOTAL 0.18 mg/dL (0.2-1.3); CALC OSMOLALITY 280 mosm/kg (275-300); CALCIUM 8.9 mg/dL (8.5-10.1); CARBON DIOXIDE 28.4 mmol/L (21.0-32.0); CHLORIDE - SERUM 103 mmol/L (98-107); CREATININE - SERUM 0.9 mg/dL (0.6-1.3); GLUCOSE 118 mg/dL (74-106); POTASSIUM - SERUM 3.9 mmol/L (3.5-5.1); PROTEIN - SERUM 6.7 g/dL (6.4-8.2); SODIUM 138 mmol/L (136-145); UREA NITROGEN 23 mg/dL (7-18); eGFR NON AFRICAN AMERICAN 67 mL/min (90-120)
[2017-06-29 22:55] LABS: CHOLESTEROL, TOTAL 167 mg/dL (0-200); CREATINE KINASE 104 UL (21-215); HDL CHOLESTEROL 55 mg/dL (32-96); LDL CHOLESTEROL 94 mg/dL (0-100); LDL-HDL RATIO 1.7 ratio (1.5-3.5); TRIGLYCERIDE 94 mg/dL (30-200)
[2017-06-29 22:57] LABS: TROPONIN-I < 0.017 ng/mL (0.000-0.060)
[2017-06-30 03:17] VITALS: BP 119/69; BMI 29.9
[2017-06-30] MEDS ORDERED: ALEVE220 MG PO (03:31)
[2017-06-30 04:00] VITALS: BP 119/69
--- NOTE | 2017-06-30 06:28 | NUR ---
C/O PAIN PRESSURE IN CHEST REFUSES NITRO. MORPHINE 4MG IVP GIVEN FOR CHEST DISCOMFORT.TELM. SHOWS SR.
[2017-06-30 07:06] LABS: CREATINE KINASE 99 UL (21-215); TROPONIN-I < 0.017 ng/mL (0.000-0.060)
--- NOTE | 2017-06-30 07:28 | NUR ---
REPORT RECEIVED FROM STEAM HEATING INSTALLER NURSE. CALL LIGHT IN REACH.
[2017-06-30 09:10] LABS: BASOPHILS 0.1 % (0-2); EOSINOPHILS 2.5 % (0-7); HEMATOCRIT 35.2 % (36.0-48.0); HEMOGLOBIN 10.6 g/dL (12-16); IMMATURE GRANULOCYTES 0.3 % (0-5); LYMPHOCYTES 24.8 % (15-50); MCH 22.9 pg (26.0-34.0); MCHC 30.1 g/dL (31.0-37.0); MEAN PLATELET VOLUME 9.6 fL (7.4-10.4); MONOCYTES 9.3 % (2-11); PLATELET COUNT 352 10x3/uL (130-400); RBC 4.63 10x6/uL (4.00-5.40); RDW 15.4 % (11.5-14.5); WBC 7.6 10x3/uL (4.8-10.8)
--- NOTE | 2017-06-30 09:20 | NUR ---
ASSESSMENT COMPLETED. CALL LIGHT IN REACH. WILL CONTINUE WITH PLAN OF CARE.
[2017-06-30 09:33] VITALS: BP 122/57
--- NOTE | 2017-06-30 11:00 | NUR ---
IV TO RIGHT HAND WITH SWELLING AND REDNESS. DC'D WITH TIP INTACT. RESITED TO RIGHT WRIST WITH 20 GA X1 STICK. PREOP MEDS ADMINISTERED ALONG WITH ZOFRAN 4 MG SIVP. CALL LIGHT IN REACH.
[2017-06-30 12:05] VITALS: Ht 167.6 cm; Wt 83.9 kg
--- NOTE | 2017-06-30 12:22 | NUR ---
TO GI LAB VIA BED.
--- NOTE | 2017-06-30 13:36 | NUR ---
PATIENT TO ROOM FROM TRANSCRIPTIONIST, PATIENT IS ALERT AND ORIENTED. R GROIN WNL, NO SIGNS OF HEMATOMA. PATIENT VS STABLE. PATIENT DENIES ANY NEEDS AT THIS TIME. FAMILY IS AT BEDSIDE. CPOC
--- NOTE | 2017-06-30 15:30 | NUR ---
PATIENT TIME UP ON LAYING FLAT, RIGHT GROIN WNL. NO SIGNS OF HEMATOMA. PATIENT VS STABLE. WILL GET DC PAPERWORK. CPOC
--- NOTE | 2017-06-30 16:00 | NUR ---
PATIENT GIVEN DC INSTRUCTIONS. IV DC WITH CATH TIP INTACT. DC PAPERWORK SIGNED, AND PATIENT DENIES ANY QUESTIONS. PATIENT RIDE HERE FOR DC. PATIENT READY FOR DC.
--- NOTE | 2017-07-07 15:46 | CN ---
PATIENT NAME:ROSSY SON MEDICAL RECORD: [id number] : 51 LOCATION:D. D.2124 ADMIT DATE: 06/30/17 ACCOUNT: [id number] CONSULTING PHYSICIAN: ALEXANDER ROYAL MD REFERRING PHYSICIAN: QUINTIN VIZCARRA MD DATE OF CONSULTATION: 06/30/2017 ADMITTING DIAGNOSES: 1. Unstable angina. 2. Coronary artery disease. 3. Previous PTCA stent, last being in July of 2016. 4. Hyperlipidemia. HISTORY OF PRESENT ILLNESS: Ms. Son is well known to us with past history of coronary artery disease. Last cardiac intervention in July for the past 2 weeks, she has had increasing episodes of chest pain and chest discomfort compatible with angina just like that of her previous angina. Her troponin is normal. She continues to have the episodes of chest discomfort. REVIEW OF SYSTEMS: The patient reports easy bruising but reports no swollen glands. The patient reports no fever, no night sweats, no significant weight gain, no significant weight loss. No significant exercise tolerance. The patient reports no dry eyes, no irritation, no vision change. Patient reports no difficulty hearing and no ear pain. Patient reports no frequent nose bleeds or nose and sinus problems. Patient reports on arm pain on exertion. No shortness of breath while lying down. No history of heart murmur. Patient reports no cough, no wheezing or coughing up blood. Patient reports no abdominal pain, no vomiting. Normal appetite. No diarrhea and not vomiting blood. No nausea and no constipation. Patient reports no incontinence. No difficulty urinating. No hematuria. No increased frequency. Patient reports no muscle aches. No weakness, no arthralgias, no back pain. No swelling of the extremities. Patient reports no abnormal mole, no jaundice, no rashes. Reports no loss of consciousness. No weakness and no numbness. No seizures, dizziness, or headaches. The patient reports no depression, no sleep disturbance, feeling safe in a relationship and no alcohol abuse. Patient reports on fatigue. Reports no runny nose or sinus pressure. No itching, no hives, and no frequent sneezing. PHYSICAL EXAMINATION: GENERAL APPEARANCE: Well-nourished, well-developed, appears stated age. Level of distress, comfortable. PSYCHIATRIC: Mental status, alert, normal affect. Orientation, oriented to time, place and person. EYES: Lids and conjunctiva, noninjected. No discharge, no pallor. ENT: Lips, teeth, gums, normal dentition. Oropharynx, no cyanosis, no pallor. NECK: Carotid arteries, bilateral normal upstroke, no bruits, no thrills. JUGULAR VEINS: No jugular venous pressure or distention. CERVICAL LYMPH NODES: Nontender, nonenlarged. THYROID: Not enlarged. Nontender. No nodules. LUNGS: Respiratory effort, unlabored. CHEST: Normal curvature. No thoracic deformity. No chest wall tenderness. Percussion, resonant. Auscultation, clear. No wheezes, no rales, no rhonchi. CARDIOVASCULAR: Precordial exam, nondisplaced. No heaves or pericardial thrills. Rate and rhythm, regular. Heart sounds, normal S1, normal S2. No S3, no gallop, no rub. Systolic murmur, not heard. Diastolic murmur, not heard. CONSULT REPORT [id number] RAMONAROSSY BELLE EXTREMITIES: No cyanosis, no edema. Peripheral pulses, full and equal in all extremities, except as noted. No bruits appreciated. ABDOMEN: Soft, nondistended. Normal aorta. No bruit. Nontender. No masses. Liver, nontender, no hepatomegaly. Spleen, nontender, no splenomegaly. MUSCULOSKELETAL: No joint tenderness. No joint swelling. No erythema. NEUROLOGICAL: Normal gait, normal strength, normal tone. SKIN: Warm and dry. OVERALL IMPRESSION: Unstable anginal symptomatology for 2 weeks in a patient with a past history of coronary artery disease and previous cardiac intervention, most likely she has recurrent hemodynamically significant coronary artery disease. We will proceed with coronary angiography. Further care depends upon the findings of the angiography. TRANSINT:[id number] Voice Confirmation ID: [id number] DOCUMENT ID: [id number] ALEXANDER ROYAL MD at 1546 CC: [id number] DICTATION DATE: 06/30/17 1002 RIGGER THIRD: 06/30/17 1129 DIS IN 06/30/17 [facility] [address] [place] [id number]
--- NOTE | 2017-07-07 15:46 | OP ---
PATIENT NAME: ROSSY GREENE MEDICAL RECORD: [id number] :51 LOCATION:D.M2 D.2124 ADMISSION DATE:06/30/17 SURGEON: ALEXANDER ROYAL MD DATE OF OPERATION: 06/30/2017 PROCEDURES: 1. Left heart catheterization. 2. Selective coronary angiography. 3. Vein graft angiography. 4. Left ventriculogram. INDICATION: Angina, coronary artery disease, previous coronary bypass graft surgery, previous PTCA stent. PROCEDURE IN DETAIL: After informed consent was obtained and after detailed explanation of risks, benefits as well as alternative therapies, the patient elected to proceed with angiogram and heart catheterization. The right femoral area was prepped and draped in normal sterile fashion. The right femoral artery was cannulated via modified Seldinger technique with placement of 5-Slovenian sheath. All catheters exchanged through this sheath. FINDINGS: The left ventriculogram was performed in a standard 30-degree HALLMAN view, reveals good cardiac wall motion throughout all segments. Overall ejection fraction estimated at 50%. SELECTIVE CORONARY ANGIOGRAPHY: 1. Left main showed no significant angiographic disease. 2. Left anterior descending has moderate irregularities, but no flow-limiting stenosis. 3. The left circumflex has moderate irregularities, but no flow-limiting stenosis. 4. The right coronary has previously placed stent proximally with 90% in-stent restenosis. 5. Vein graft to the right coronary artery is widely patent. Distal right coronary is widely patent. OVERALL IMPRESSION: No new coronary artery disease is present. Vein graft to the right coronary artery is widely patent. No disease elsewhere. Preserved left ventricular function. Continue medical management of the coronary artery disease and cardiac risk factors. TRANSINT:[id number] Voice Confirmation ID: [id number] DOCUMENT ID: [id number] ALEXANDER ROYAL MD at 1546 CC: [id number] DICTATION DATE: 06/30/17 1256 BED WORKER: 06/30/17 1314 DIS IN 06/30/17 [place] [id number] [place] [id number]
[2017-08-17] MEDS ORDERED: FLUTICASONE PRO16 GM NASAL (09:37)
[2017-08-17] MEDS ORDERED: ASPIRIN EC81 M1 PO (09:39)
== END 2017-06-30 16:32 | disposition home or self-care (01) ==
LOC: D.ER 21:30 → OBSVTIME 06-30 01:02 → D.MS 06-30 01:02 → D.M2 06-30 13:23
PROVIDERS: Emergency Medicine; ADMIT Emergency Medicine
DX: I25.110 Atherosclerotic heart disease of native coronary artery with unstable angina pectoris (principal); Z95.1 Presence of aortocoronary bypass graft; Z95.5 Presence of coronary angioplasty implant and graft; E78.5 Hyperlipidemia, unspecified; Z86.73 Personal history of transient ischemic attack (TIA), and cerebral infarction without residual deficits; I10 Essential (primary) hypertension; K21.9 Gastro-esophageal reflux disease without esophagitis; M17.11 Unilateral primary osteoarthritis, right knee

== ENCOUNTER → 2017-07-21 08:02 | Outpatient (CLI) | payer MEDICAID ==
[2017-06-30 12:05] VITALS: BMI 29.8
[~2017-07-21 08:02] MED LIST changes: +ASPIRIN EC81 M1 PO; +HYDROCODON-ACE1 EAC7 PO
== END | disposition home or self-care (01) ==
LOC: D.CT 08:02
DX: R10.9 Unspecified abdominal pain (principal)

== ENCOUNTER 2017-08-18 05:41 | Day surgery (SDC) | payer MEDICAID ==
[2017-08-17 10:22] LABS: HEMATOCRIT 35.3 % (36.0-48.0); HEMOGLOBIN 10.5 g/dL (12-16); MCH 21.7 pg (26.0-34.0); MCHC 29.7 g/dL (31.0-37.0); MCV 73.1 fL (80.0-100.0); MEAN PLATELET VOLUME 8.9 fL (7.4-10.4); RBC 4.83 10x6/uL (4.00-5.40); RDW 15.4 % (11.5-14.5); WBC 7.8 10x3/uL (4.8-10.8)
[~2017-08-18] VITALS: Ht 167.6 cm; Wt 86.2 kg
[~2017-08-18 05:41] MED LIST changes: -HYDROCODON-ACE1 EAC7 PO
[2017-08-18 06:52] VITALS: BP 137/72; Ht 167.6 cm; Wt 86.2 kg
[2017-08-18] MEDS ORDERED: HYDROCODON-ACE1 EAC7 PO (08:47)
== END 2017-08-18 10:50 | disposition home or self-care (01) ==
LOC: D.OPS 05:41 → D.PAN 08:00 → D.OPS 08:00
PROVIDERS: Anesthesiology
DX: K80.20 Calculus of gallbladder without cholecystitis without obstruction (principal); I25.10 Atherosclerotic heart disease of native coronary artery without angina pectoris; I10 Essential (primary) hypertension; Z85.3 Personal history of malignant neoplasm of breast; K21.9 Gastro-esophageal reflux disease without esophagitis; K44.9 Diaphragmatic hernia without obstruction or gangrene; Z95.1 Presence of aortocoronary bypass graft; Z95.5 Presence of coronary angioplasty implant and graft; Z01.812 Encounter for preprocedural laboratory examination

== ENCOUNTER 2017-12-19 14:53 | Emergency (ER) | payer MEDICAID ==
[~2017-12-19] VITALS: Ht 167.6 cm; Wt 86.4 kg
[~2017-12-19 14:53] MED LIST changes: +HYDROCODON-ACE1 EAC7 PO
[2017-12-19 15:02] VITALS: Ht 167.6 cm; Wt 86.4 kg
[2017-12-19 15:29] LABS: BASOPHILS 0.2 % (0-2); EOSINOPHILS 1.2 % (0-7); HEMATOCRIT 33.7 % (36.0-48.0); HEMOGLOBIN 10.1 g/dL (12-16); IMMATURE GRANULOCYTES 0.2 % (0-5); LYMPHOCYTES 19.3 % (15-50); MCH 21.3 pg (26.0-34.0); MCV 71.1 fL (80.0-100.0); MEAN PLATELET VOLUME 9.1 fL (7.4-10.4); MONOCYTES 8.1 % (2-11); PLATELET COUNT 323 10x3/uL (130-400); RBC 4.74 10x6/uL (4.00-5.40); RDW 17.3 % (11.5-14.5)
[2017-12-19 15:38] LABS: APTT 26.7 SECONDS (22.8-39.4); PROTIME 12.8 SECONDS (11.6-15.0)
[2017-12-19 15:40] LABS: D-DIMER-QUANTITATIVE 0.34 ug/mLFEU (0.20-0.54)
[2017-12-19 15:50] LABS: ALBUMIN 3.5 g/dL (3.4-5.0); ALKALINE PHOSPHATASE 108 U/L (46-116); ALT (SGPT) 20 U/L (10-68); CALC OSMOLALITY 285 mosm/kg (275-300); CARBON DIOXIDE 27.3 mmol/L (21.0-32.0); CHLORIDE - SERUM 104 mmol/L (98-107); GLUCOSE 108 mg/dL (74-106); POTASSIUM - SERUM 3.9 mmol/L (3.5-5.1); PROTEIN - SERUM 7.1 g/dL (6.4-8.2); SODIUM 140 mmol/L (136-145); UREA NITROGEN 29 mg/dL (7-18); eGFR NON AFRICAN AMERICAN 59 mL/min (90-120)
[2017-12-19 16:02] LABS: CKMB 1.1 U/L (0.0-3.6); CREATINE KINASE 105 UL (21-215)
[2017-12-19 16:08] LABS: TROPONIN-I < 0.017 ng/mL (0.000-0.060)
[2017-12-19] MEDS ORDERED: CELEBREX 100 M100 MG PO (19:10)
[2017-12-19 19:24] VITALS: BP 121/60
== END 2017-12-19 19:35 | disposition home or self-care (01) ==
LOC: D.ER 14:53
PROVIDERS: Family Medicine
DX: H40.9 Unspecified glaucoma (principal); I10 Essential (primary) hypertension

== ENCOUNTER 2018-04-13 09:52 | Observation (INO) | payer MEDICAID ==
[~2018-04-13] VITALS: Ht 167.6 cm; Wt 93.2 kg
[2018-04-13] VITALS (12 sets, daily range): BP systolic 111–146; BP diastolic 62–85; Ht 167.6 cm; Wt 93.2 kg
--- NOTE | ~2018-04-13 | HEMODYNAMI ---
PATIENT:ROSSY GREENE MEDICAL RECORD: [id number] : 51 LOCATION:MARIE AritaCL01 ADMISSION DATE: 04/13/18 Generatedon:04/13/201816:29 Patient name: ROSSY GREENE Patient #: [id number] SSN: [id number] : 1955 Date of study: 04/13/2018 Page: Of Hemodynamic Procedure Report Patient Data Patient Demographics Procedure consent was obtained First Name: ROSSY Gender: Female Last Name: RAMONA : 1955 Middle Initial: JAGDEEP Age: 62 year(s) Patient #: [id number] Race: SSN: [id number] Additional ID: [id number] Contact details [address]: [address] [place] [address] State: [place] City: [place] Zip code: [address] Past Medical History History of disease Date Diagnosis Comments CAD Admission Admission Data Admission Date: 04/13/2018 Admission Time: 12:30 Room #: LylaCL01 Procedure Procedure Types Cath Procedure Diagnostic Procedure LHC LHC w/Coronaries w/Grafts Procedure Description Procedure Date Procedure Date: 04/13/2018 Procedure Start Time: 16:12 Procedure End Time: 16:26 Procedure Staff Name Function Jonn Wilson MD Performing Physician Deja Phillip RT Monitor María Britt RT Scrub Srinivas Medina RN Nurse Procedure Data Cath Procedure Fluoroscopy Diagnostic fluoroscopy Total fluoroscopy Time: 1.6 time: 1.6 min min Diagnostic fluoroscopy Total fluoroscopy dose: 570 dose: 570 mGy mGy Contrast Material Contrast Material Type Amount (ml) Isovue 300 57 Entry Location Entry Primary Successful Side Size Upsize Upsize Entry Closure Succes sful Closure Location (Fr) 1 (Fr) 2 (Fr) Remarks Device Remarks Femoral Right 5 Fr Exoseal artery Estimated blood loss: 5 ml Diagnostic catheters Device Type Used For End Catheter Placement MULTIPACK JL 4.0 5Fr Left Coronary catheter Angiography MULTIPACK 3DRC 5Fr Right Coronary catheter Angiography DIAGNOSTIC AR2 MOD 5 Fr Right Coronary catheter ([id number]) Angiography MULTIPACK Pigtail 5 Fr LV Angiography catheter Procedure Complications No complications Procedure Medications Medication Administration Route Dosage Oxygen NC 2 l/min Heparin Flush Bag added to field 2 bags (1000units/500ml NS) 0.9% NaCl I.V. 100 ml/hr Zofran I.V. 4 mg Fentanyl I.V. 100 mcg Versed I.V. 1 mg Fentanyl I.V. 100 mcg Versed I.V. 1 mg Fentanyl I.V. 100 mcg Versed I.V. 1 mg Fentanyl I.V. 100 mcg Hemodynamics Rest Heart Rate: 74 (bpm) Snapshots Pre Cath Intra NCS Post Cath Vital Signs Time Heart Resp SPO2 etCO2 NIBP (mmHg) Rhythm Pain Sedation Rate (ipm) (%) (mmHg) Status Level (bpm) 15:41:18 71 17 98 0 138/81(112) NSR 0 (11) 10(A) , No pain 15:45:31 73 16 95 0 115/74(96) NSR 0 (11) 10(A) , No pain 15:49:37 71 16 96 0 131/71(102) NSR 0 (11) 10(A) , No pain 15:53:49 71 17 97 0 121/69(97) NSR 0 (11) 10(A) , No pain 15:57:59 73 16 98 0 126/68(94) NSR 0 (11) 10(A) , No pain 16:02:09 74 17 93 0 117/67(91) NSR 0 (11) 10(A) , No pain 16:06:15 76 16 95 0 129/76(93) NSR 0 (11) 10(A) , No pain 16:10:27 72 16 97 0 135/70(91) NSR 0 (11) 9(A) , No pain 16:14:42 68 17 95 0 126/65(84) NSR 0 (11) 9(A) , No pain 16:18:52 83 18 93 0 120/74(101) NSR 0 (11) 9(A) , No pain 16:23:00 81 17 94 0 124/73(92) NSR 0 (11) 9(A) , No pain 16:24:06 82 17 95 0 120/68(86) NSR 0 (11) 9(A) , No pain 16:25:58 82 17 95 0 119/74(94) NSR 0 (11) 9(A) , No pain Medications Time Medication Route Dose Verified Delivered Reason Notes Effec tiveness by by 15:57:26 Oxygen NC 2 Jonn Srinivas Per l/min Steve Medina RN physician 15:57:36 Heparin Flush added 2 Jonn Srinivas used for Bag to bags Steve Medina RN procedure (1000units/500ml field NS) 15:57:45 0.9% NaCl I.V. 100 Jonn Srinivas Per ml/hr Steve Medina RN physician 15:58:00 Zofran I.V. 4 mg Jonn Espino for Steve Medina RN nausea 16:07:29 Fentanyl I.V. 100 Jonn Srinivas for mcg Steve Medina RN sedation 16:07:35 Versed I.V. 1 mg Jonn Espino for Steve Medina RN sedation 16:11:11 Fentanyl I.V. 100 Jonn Lopezy for [facility] Steve Medina RN sedation 16:11:13 Versed I.V. 1 mg Jonn Lopezy for Steve Medina RN sedation 16:14:59 Fentanyl I.V. 100 Jonnsheila Lopezy for tamia Medina RN sedation 16:15:02 Versed I.V. 1 mg Jonn Lopezy for Steve Medina RN sedation 16:16:12 Fentanyl I.V. 100 Jonn Srinivas for tamia Medina RN sedation Procedure Log Time Note 15:25:30 Srinivas Medina RN sent for patient. Start room use. 15:25:31 Time tracking: Regular hours (M-F 7:00 - 5:00) 15:25:35 Plan of Care:Hemodynamics will remain stable., Cardiac rhythm will remain stable., Comfort level will be maintained., Respiratory function will remain adequate., Patient/ family verbilizes understanding of procedure., Procedure tolerated without complication., Recovers from procedure without complications.. 15:40:11 Vital chart was started 15:42:37 Patient received from ED to CCL 2 Alert and oriented. Tansferred to table in Supine position. 15:42:38 Warm blankets applied, and sania hugger turned on for patient comfort. 15:42:39 Correct patient and procedure confirmed by team. 15:42:52 Signed procedure consent form obtained from patient. 15:42:53 ECG and BP/O2 sat monitors applied to patient. 15:42:54 Baseline sample Acquired. 15:42:57 Rhythm: sinus rhythm 15:42:59 Full Disclosure recording started 15:43:03 H&P Date Dictated: 04/13/2018 New H&P dictated by physician.. 15:43:04 Pre-procedure instructions explained to patient. 15:43:05 Pre-op teaching completed and patient verbalized understanding. 15:43:06 Family in waiting room. 15:43:07 Patient NPO since Midnight. 15:43:10 Is the patient allergic to Iodine/contrast media? No. 15:43:11 Was the patient premedicated? No 15:43:11 Is patient on blood thinner?Yes 15:43:14 ACC The patient was administered the following blood thiners within the last 24 hours: ACCPlavix 15:43:17 Patient diabetic? No. 15:43:22 Previous problem with sedation/anesthesia? Yes nausea 15:43:24 Snore? Yes 15:43:25 Sleep apnea? No 15:43:26 Deviated septum? No 15:43:27 Opens mouth fully? Yes 15:43:27 Sticks out tongue? Yes 15:43:30 Airway obstruction? No ? 15:43:34 Dentures? Yes in tight 15:43:38 Pre procedure: right dorsailis pedis pulse 1+ Palpable, but thready & weak; easily obliterated 15:43:41 Pre procedure: left dorsailis pedis pulse 1+ Palpable, but thready & weak; easily obliterated 15:43:44 Patient pain scale 0/10 ?. 15:43:51 IV patent on arrival in right antecubital with 0.9% NaCl at O. 15:43:54 Lab results completed and on chart. 15:44:07 Right groin area was prepped with chlora-prep and draped in sterile fashion 15:44:09 Alarms reviewed by R. N. 15:44:09 Sharps counted by scrub and verified by R.N. 15:57:26 Oxygen 2 l/min NC was administered by Srinivas Medina RN; Per physician; 15:57:36 Heparin Flush Bag (1000units/500ml NS) 2 bags added to field was administered by Srinivas Medina RN; used for procedure; 15:57:45 0.9% NaCl 100 ml/hr I.V. was administered by Srinivas Medina RN; Per physician; 15:58:00 Zofran 4 mg I.V. was administered by Srinivas Medina RN; for nausea; 16:06:02 Physician arrived 16:06:02 --------ALL STOP TIME OUT------ 16:06:03 Final Timeout: patient, procedure, and site verified with staff and physician. All members of the team are in agreement. 16:06:06 Right groin site verified by team. 16:06:09 Physical assessment completed. ASA score P 2 - A patient with mild systemic disease as per Jonn Wilson MD. 16:06:14 Sedation plan: IV Moderate Sedation Medication:Versed, Fentanyl 16:06:40 Use device set Femoral Dx 16:06:41 ACIST Syringe (89360) opened to sterile field. 16:06:42 Bag Decanter (2002S) opened to sterile field. 16:06:42 Medline Cath Pack ([id number]) opened to sterile field. 16:06:43 DIAGNOSTIC WIRE .035 260cm J wire (720946) opened to sterile field. 16:06:44 ACIST Hand Control (04000) opened to sterile field. 16:06:44 ACIST Manifold (37118) opened to sterile field. 16:06:45 DIAGNOSTIC Multipack 5Fr catheter set (DT8748) opened to sterile field. 16:06:46 Tegaderm 4 x 4 (1626W) opened to sterile field. 16:06:47 SHEATH Prelude 5Fr 0.035 (SHX-3E-83-035) opened to sterile field. 16:07:29 Fentanyl 100 mcg I.V. was administered by Srinivas Medina RN; for sedation; 16:07:35 Versed 1 mg I.V. was administered by Srinivas Medina RN; for sedation; 16:11:11 Fentanyl 100 mcg I.V. was administered by Srinivas Medina RN; for sedation; 16:11:13 Versed 1 mg I.V. was administered by Srinivas Medina RN; for sedation; 16:12:51 Procedure started. 16:12:54 Local anesthetic to right femoral artery with Lidocaine 2% by Jonn Wilson MD.INITIAL ACCESS ONLY 16:13:09 A 5 Fr sheath was inserted into the Right Femoral artery 16:14:32 A MULTIPACK Pigtail 5 Fr catheter was advanced over the wire and used for LV Angiography. 16:14:49 LV hemodynamics recorded. 16:14:50 EF : 60 % 16:14:51 Catheter removed. 16:14:59 Fentanyl 100 mcg I.V. was administered by Srinivas Medina RN; for sedation; 16:15:02 Versed 1 mg I.V. was administered by Srinivas Medina RN; for sedation; 16:15:20 A MULTIPACK JL 4.0 5Fr catheter was advanced over the wire and used for Left Coronary Angiography. 16:15:33 LCA angiography performed. 16:15:35 Injector settings: Ml/sec: 3, Volume: 6, 16:16:12 Fentanyl 100 mcg I.V. was administered by Srinivas Medina RN; for sedation; 16:16:21 Catheter removed. 16:16:30 A MULTIPACK 3DRC 5Fr catheter was advanced over the wire and used for Right Coronary Angiography. 16:17:28 Catheter removed. unable to cannulate vessel. 16:18:32 A DIAGNOSTIC AR2 MOD 5 Fr catheter ([id number]) was advanced over the wire and used for Right Coronary Angiography. 16:18:47 RCA angiography performed. 16:18:50 Injector settings: Ml/sec: 3, Volume: 6, 16:19:24 Catheter removed. 16:24:42 EXOSEAL 5Fr (EX500) opened to sterile field. 16:24:55 Sheath removed intact; hemostasis achieved with Exoseal to the Right Femoral artery. 16:24:57 Procedure ended.(Physican Out) 16:25:22 Fluoroscopy time 01.60 minutes. 16:25:27 Flurop Dose total: 570 16:25:27 Fluoroscopy dose: 570 mGy 16:25:52 Contrast amount:Isovue 300 57ml. 16:25:54 Sharps counted by scrub and verified by R.N. 16:25:56 Insertion/operative site no bleeding no hematoma. 16:25:59 Post-op/insertion site Right Femoral artery dressed using a 4 x 4 and Tegaderm. 16:26:02 Post right femoral artery:stable 16:26:03 Post Procedure Pulses reassessed and unchanged 16:26:06 Post procedure rhythm: unchanged. 16:26:08 Estimated blood loss: 5 ml 16:26:09 Post procedure instruction explained to patient.Patient verbalizes understanding. 16:26:10 Patient needs reinforcement of post procedure teaching. 16:26:20 Procedure type changed to Cath procedure, Diagnostic procedure, LHC, LHC w/Coronaries w/Grafts 16:26:21 Procedure and supply charges have been captured, reviewed, submitted and are correct. 16:26:25 Procedure Complication : No complications 16:26:27 Vital chart was stopped 16:26:27 See physician's report for complete and final results. 16:26:31 Report given to Pre/Post Procedure Room. 16:26:33 Patient transfered to Pre/Post Procedure Room with Stretcher. 16:26:36 Procedure ended. 16:26:36 Full Disclosure recording stopped 16:26:42 End room use (Document Last) Device Usage Item Name Manufacture Quantity Catalog Number Hospital Part Current M inimal Lot# / Charge Number Stock Stock Serial# Code ACIST Syringe Acist 1 00898 214130 491014 224077 2 0 (71432) [employer] Bag Decanter Microtek 1 2001S 965588 39350 289364 5 () Medical Inc. Medline Cath Cardinal 1 [id number] 287637 10427 769480 5 Pack Health ([id number]) DIAGNOSTIC WIRE St Taco 1 993854 125520 361249 611201 3 0 .035 260cm J wire (969457) ACIST Hand Acist 1 71329 086208 291899 870340 5 Control (49790) [employer] ACIST Manifold Acist 1 28464 851850 678023 819689 5 (01972) [employer] Inc DIAGNOSTIC Cardinal 1 [id number] 536732 64888 075714 3 0 Multipack 5Fr Health catheter set ([id number]) Tegaderm 4 x 4 3M 1 1626W 104181 254009 821150 5 (1626W) SHEATH Prelude Merit 1 [id number] 503317 738119 039803 5 5Fr 0.035 Medical ([id number]-2B-64-035) MULTIPACK JL Cardinal 1 [id number] 5 4.0 5Fr Health catheter MULTIPACK 3DRC Cardinal 1 416690 5 5Fr catheter Health DIAGNOSTIC AR2 Cardinal 1 [id number] 957693 116798 977473 2 0 MOD 5 Fr Health catheter ([id number]) MULTIPACK Cardinal 1 822751 5 Pigtail 5 Fr Health catheter EXOSEAL 5Fr Cardinal 1 EX500 918279 842165 001685 1 0 (EX500) Health Signature Audit [place] Stage Time Signature Unsigned Intra-Procedure 04/13/2018 Deja Phillip 4:29:11 PM RT(R) Signatures Monitor : Deja Phillip RT Signature : Date : Time : [facility] [address] [place] [address]
--- NOTE | ~2018-04-13 | OP ---
PATIENT NAME: ROSSY GREENE MEDICAL RECORD: [id number] :51 LOCATION:MARIE Arita[facility]01 ADMISSION DATE:04/13/18 SURGEON: ALEXANDER ROYAL MD DATE OF OPERATION: 04/13/2018 DATE OF SERVICE: 04/13/2018 PROCEDURES: 1. Left heart catheterization. 2. Selective coronary angiography. 3. Left ventriculogram. 4. Vein graft angiography. INDICATION: Angina and coronary artery disease. PROCEDURE IN DETAIL: After informed consent was obtained and after detailed explanation of risks, benefits as well as alternative therapies, the patient elected to proceed with angiogram and heart catheterization. The right femoral area was prepped and draped in normal sterile fashion. Right femoral artery was cannulated via modified Seldinger technique with placement of 6-Somali sheath. All catheters exchanged through this sheath. FINDINGS: Left ventriculogram was performed in standard 30-degree HALLMAN view, reveals good cardiac wall motion throughout all segments. Overall ejection fraction estimated at 60%. SELECTIVE CORONARY ANGIOGRAPHY: 1. Left main is with no significant angiographic disease. 2. Left anterior descending has mild irregularities, but no flow-limiting stenosis. 3. The left circumflex has mild irregularities, but no flow-limiting stenosis. 4. Right coronary has a patent vein graft. The vein graft is widely patent. The distal RCA is widely patent. OVERALL IMPRESSION: Wide patency of vein graft to the right coronary artery. No significant disease on the left with preserved left ventricular function. Continue medical management of the coronary artery disease and cardiac risk factors. TRANSINT:[id number] Voice Confirmation ID: [id number] DOCUMENT ID: [id number] ALEXANDER ROYAL MD at 0924 CC: [id number] DICTATION DATE: 04/13/18 1624 MACHINE OPERATOR ASSISTANT: 04/13/18 1651 DIS IN 04/13/18 [place] [address] [place] [address]
--- NOTE | ~2018-04-13 | CN ---
PATIENT NAME:ROSSY SON MEDICAL RECORD: [id number] : 51 LOCATION:[facility] ADMIT DATE: 04/13/18 ACCOUNT: [id number] CONSULTING PHYSICIAN: ALEXANDER ROYAL MD REFERRING PHYSICIAN: ALEXANDER ROYAL MD DATE OF CONSULTATION: 04/13/2018 ADMITTING DIAGNOSES: 1. Unstable angina. 2. Coronary artery disease. 3. Previous bypass surgery. 4. Previous percutaneous transluminal coronary angioplasty stent. 5. Hyperlipidemia. HISTORY OF PRESENT ILLNESS: Mrs. Son presents with anginal symptomatology. She continues to have episodes of chest pain. She is status post bypass surgery and PTCA stent in the past. Pain is just like that of her previous angina. REVIEW OF SYSTEMS: The patient reports easy bruising but reports no swollen glands. The patient reports no fever, no night sweats, no significant weight gain, no significant weight loss. No significant exercise tolerance. The patient reports no dry eyes, no irritation, no vision change. Patient reports no difficulty hearing and no ear pain. Patient reports no frequent nose bleeds or nose and sinus problems. Patient reports on arm pain on exertion. No shortness of breath while lying down. No history of heart murmur. Patient reports no cough, no wheezing or coughing up blood. Patient reports no abdominal pain, no vomiting. Normal appetite. No diarrhea and not vomiting blood. No nausea and no constipation. Patient reports no incontinence. No difficulty urinating. No hematuria. No increased frequency. Patient reports no muscle aches. No weakness, no arthralgias, no back pain. No swelling of the extremities. Patient reports no abnormal mole, no jaundice, no rashes. Reports no loss of consciousness. No weakness and no numbness. No seizures, dizziness, or headaches. The patient reports no depression, no sleep disturbance, feeling safe in a relationship and no alcohol abuse. Patient reports on fatigue. Reports no runny nose or sinus pressure. No itching, no hives, and no frequent sneezing. PHYSICAL EXAMINATION: GENERAL APPEARANCE: Well-nourished, well-developed, appears stated age. Level of distress, comfortable. PSYCHIATRIC: Mental status, alert, normal affect. Orientation, oriented to time, place and person. EYES: Lids and conjunctiva, noninjected. No discharge, no pallor. ENT: Lips, teeth, gums, normal dentition. Oropharynx, no cyanosis, no pallor. NECK: Carotid arteries, bilateral normal upstroke, no bruits, no thrills. JUGULAR VEINS: No jugular venous pressure or distention. CERVICAL LYMPH NODES: Nontender, nonenlarged. THYROID: Not enlarged. Nontender. No nodules. LUNGS: Respiratory effort, unlabored. CHEST: Normal curvature. No thoracic deformity. No chest wall tenderness. Percussion, resonant. Auscultation, clear. No wheezes, no rales, no rhonchi. CARDIOVASCULAR: Precordial exam, nondisplaced. No heaves or pericardial thrills. Rate and rhythm, regular. Heart sounds, normal S1, normal S2. No S3, no gallop, no rub. Systolic murmur, not heard. Diastolic murmur, not heard. EXTREMITIES: No cyanosis, no edema. Peripheral pulses, full and equal in all CONSULT REPORT [id number] ROSSY SON extremities, except as noted. No bruits appreciated. ABDOMEN: Soft, nondistended. Normal aorta. No bruit. Nontender. No masses. Liver, nontender, no hepatomegaly. Spleen, nontender, no splenomegaly. MUSCULOSKELETAL: No joint tenderness. No joint swelling. No erythema. NEUROLOGICAL: Normal gait, normal strength, normal tone. SKIN: Warm and dry. OVERALL IMPRESSION: Angina, unstable fashion, most likely she does have hemodynamically significant recurrent coronary artery disease. We will proceed with coronary angiography. Further care depends upon findings of the angiography. TRANSINT:[id number] Voice Confirmation ID: [id number] DOCUMENT ID: [id number] ALEXANDER ROYAL MD at 0924 CC: [id number] DICTATION DATE: 04/13/18 1623 PIPE LINE INSPECTOR: 04/13/18 1635 DIS IN 04/13/18 [facility] [address] [place] [address]
[~2018-04-13 09:52] MED LIST changes: +CELEBREX 100 M100 MG PO
[2018-04-13 10:29] LABS: BASOPHILS 0.3 % (0-2); EOSINOPHILS 2.1 % (0-7); HEMATOCRIT 35.6 % (36.0-48.0); HEMOGLOBIN 10.5 g/dL (12-16); IMMATURE GRANULOCYTES 0.1 % (0-5); LYMPHOCYTES 21.9 % (15-50); MCHC 29.5 g/dL (31.0-37.0); MCV 71.2 fL (80.0-100.0); MEAN PLATELET VOLUME 8.4 fL (7.4-10.4); MONOCYTES 9.5 % (2-11); NEUTROPHILS 66.1 % (40-80); PLATELET COUNT 317 10x3/uL (130-400); RDW 17.1 % (11.5-14.5); WBC 6.8 10x3/uL (4.8-10.8)
[2018-04-13 10:44] LABS: ALBUMIN 3.4 g/dL (3.4-5.0); ALKALINE PHOSPHATASE 104 U/L (46-116); ALT (SGPT) 20 U/L (10-68); BILIRUBIN - TOTAL 0.28 mg/dL (0.2-1.3); CALC OSMOLALITY 276 mosm/kg (275-300); CARBON DIOXIDE 26.9 mmol/L (21.0-32.0); CHLORIDE - SERUM 104 mmol/L (98-107); CREATININE - SERUM 0.8 mg/dL (0.6-1.3); GLUCOSE 92 mg/dL (74-106); POTASSIUM - SERUM 3.7 mmol/L (3.5-5.1); PROTEIN - SERUM 7.5 g/dL (6.4-8.2); SODIUM 138 mmol/L (136-145); UREA NITROGEN 16 mg/dL (7-18); eGFR NON AFRICAN AMERICAN 76 mL/min (90-120)
[2018-04-13 11:06] LABS: CKMB 0.9 U/L (0.0-3.6); CREATINE KINASE 81 UL (21-215); PRO BNP 56 pg/mL (0-125)
[2018-04-13 11:09] LABS: TROPONIN-I < 0.017 ng/mL (0.000-0.060)
== END 2018-04-13 18:35 | disposition home or self-care (01) ==
LOC: D.ER 09:52 → D.MS 12:30 → D.EDHOLD 12:30 → D.CLR 12:30 → OBSVTIME 12:30 → D.MS 13:48 → D.EDHOLD 13:57 → D.CLR 14:02
PROVIDERS: Family Medicine
DX: I25.119 Atherosclerotic heart disease of native coronary artery with unspecified angina pectoris (principal); Z98.61 Coronary angioplasty status; Z95.1 Presence of aortocoronary bypass graft; E78.5 Hyperlipidemia, unspecified

== ENCOUNTER → 2018-04-20 13:07 | Outpatient (CLI) | payer MEDICAID ==
[2018-04-13 09:58] VITALS: BMI 33.1
[~2018-04-20 13:07] MED LIST changes: +IRON PILL; +NITROQUICK0.4 MG SL; +PROTONIX20 MG PO
== END | disposition home or self-care (01) ==
LOC: D.CT 13:07
DX: Z86.711 Personal history of pulmonary embolism (principal)

== ENCOUNTER 2018-05-13 14:53 | Observation (INO) | payer MEDICARE ==
[~2018-05-13] VITALS: Ht 167.6 cm; Wt 90.9 kg
--- NOTE | ~2018-05-13 | DS ---
PATIENT:ROSSY SON :51 MEDICAL RECORD: [id number] DISCHARGE SUMMARY ADMISSION DATE: 05/13/18 DISCHARGE DATE: 05/14/18 DISCHARGE DIAGNOSES: 1. Angina. 2. Coronary artery disease. 3. Hyperlipidemia. HOSPITAL COURSE: Ms. Son presents with anginal symptomatology; however, troponins are normal. EKG is normal. She had no further anginal symptomatology after the initial angina for her admission. She was discharged home with the addition of sublingual nitro p.r.n. to her medical regimen. Will follow up with [facility] as previously scheduled. TRANSINT:[id number] Voice Confirmation ID: [id number] DOCUMENT ID: [id number] ALEXANDER ROYAL MD at 1059 CC: [id number] DICTATION DATE: 05/14/181116 TRIM MACHINE OPERATOR: 05/14/182152 DIS IN 05/14/18 [address] [place] [address]
--- NOTE | ~2018-05-13 | MORECARE ---
CASE MANAGEMENT DISCHARGE SUMMARY PATIENT: ROSSY GREENE UNIT: [id number] ADM DATE: 05/13/18 AGE: 62 : 51 SEX: F ROOM/BED: D.0038 AUTHOR: GUMARO CLAY PHYSICIAN: REFERRING PHYSICIAN: ALEXANDER ROYAL MD DATE OF SERVICE: 05/16/18 Discharge Plan Patient Name: ROSSY GREENE [facility] [facility] 1955 Planned Disposition: Home Anticipated Discharge Date: 05/14/18 Discharge Date: 05/14/2018 Expected LOS: 1 Initial Reviewer: [id number] Initial Review Date: 05/16/2018 Generated: 05/16/18 8:51 am Patient Name: ROSSY GREENE Page [id number] at 0751 All edits/amendments must be made on the electronic document DICTATION DATE: 05/16/18749 FOOD AND BEVERAGE LEAD: TAMARA 05/16/18 0750 RPT#: [id number] DC DATE:05/14/18 STATUS: DIS IN [facility] [address] [facility] [place] [address] END OF REPORT
--- NOTE | ~2018-05-13 | HP ---
PATIENT: ROSSY SON MEDICAL RECORD: [id number] ACCOUNT: [id number] LOCATION:[address] : 51 ADMISSION DATE: 05/13/18 PCP: No PCP HISTORY AND PHYSICAL EXAMINATION ADMITTING DIAGNOSES: 1. Angina. 2. Coronary artery disease. 3. Previous coronary artery bypass graft surgery. 4. Hyperlipidemia. HISTORY OF PRESENT ILLNESS: Mrs. Son presents with anginal symptomatology. Her pain lasted approximately 1 hour. She went to the Emergency Room. Her pain was relieved with morphine and sublingual nitro. Her troponins are normal. Her EKG is normal. She just underwent cardiac catheterization approximately a month ago showing wide patency of her vein graft to the RCA, wide patency of the LAD and circumflex. REVIEW OF SYSTEMS: The patient reports easy bruising but reports no swollen glands. The patient reports no fever, no night sweats, no significant weight gain, no significant weight loss. No significant exercise tolerance. The patient reports no dry eyes, no irritation, no vision change. Patient reports no difficulty hearing and no ear pain. Patient reports no frequent nose bleeds or nose and sinus problems. Patient reports on arm pain on exertion. No shortness of breath while lying down. No history of heart murmur. Patient reports no cough, no wheezing or coughing up blood. Patient reports no abdominal pain, no vomiting. Normal appetite. No diarrhea and not vomiting blood. No nausea and no constipation. Patient reports no incontinence. No difficulty urinating. No hematuria. No increased frequency. Patient reports no muscle aches. No weakness, no arthralgias, no back pain. No swelling of the extremities. Patient reports no abnormal mole, no jaundice, no rashes. Reports no loss of consciousness. No weakness and no numbness. No seizures, dizziness, or headaches. The patient reports no depression, no sleep disturbance, feeling safe in a relationship and no alcohol abuse. Patient reports on fatigue. Reports no runny nose or sinus pressure. No itching, no hives, and no frequent sneezing. PHYSICAL EXAMINATION: GENERAL APPEARANCE: Well-nourished, well-developed, appears stated age. Level of distress, comfortable. PSYCHIATRIC: Mental status, alert, normal affect. Orientation, oriented to time, place and person. EYES: Lids and conjunctiva, noninjected. No discharge, no pallor. ENT: Lips, teeth, gums, normal dentition. Oropharynx, no cyanosis, no pallor. NECK: Carotid arteries, bilateral normal upstroke, no bruits, no thrills. JUGULAR VEINS: No jugular venous pressure or distention. CERVICAL LYMPH NODES: Nontender, nonenlarged. THYROID: Not enlarged. Nontender. No nodules. LUNGS: Respiratory effort, unlabored. CHEST: Normal curvature. No thoracic deformity. No chest wall tenderness. Percussion, resonant. Auscultation, clear. No wheezes, no rales, no rhonchi. CARDIOVASCULAR: Precordial exam, nondisplaced. No heaves or pericardial thrills. Rate and rhythm, regular. Heart sounds, normal S1, normal S2. No S3, no gallop, no rub. Systolic murmur, not heard. Diastolic murmur, not heard. EXTREMITIES: No cyanosis, no edema. Peripheral pulses, full and equal in all HISTORY AND PHYSICAL [id number] ROSSY SON extremities, except as noted. No bruits appreciated. ABDOMEN: Soft, nondistended. Normal aorta. No bruit. Nontender. No masses. Liver, nontender, no hepatomegaly. Spleen, nontender, no splenomegaly. MUSCULOSKELETAL: No joint tenderness. No joint swelling. No erythema. NEUROLOGICAL: Normal gait, normal strength, normal tone. SKIN: Warm and dry. OVERALL IMPRESSION: Anginal symptomatology not really sure what the etiology of this is. Her blood pressure is low, would not add nitrates due to this. Heart rate is regular in the 60s, would not add a beta ludivina. Troponins are normal. We will observe for any further angina. Further care depends upon her clinical course. TRANSINT:[id number] Voice Confirmation ID: [id number] DOCUMENT ID: [id number] ALEXANDER ROYAL MD at 1059 CC: [id number] DICTATION DATE: 05/14/18 111 COPY CLERK: 05/14/18 1210 DIS IN 05/14/18 [address] [place] [address]
[~2018-05-13 14:53] MED LIST changes: -IRON PILL; -NITROQUICK0.4 MG SL; -PROTONIX20 MG PO
[2018-05-13 15:33] LABS: BASOPHILS 0.2 % (0-2); EOSINOPHILS 0.9 % (0-7); HEMATOCRIT 37.1 % (36.0-48.0); IMMATURE GRANULOCYTES 0.3 % (0-5); LYMPHOCYTES 18.5 % (15-50); MCH 22.3 pg (26.0-34.0); MCHC 29.6 g/dL (31.0-37.0); MCV 75.3 fL (80.0-100.0); MEAN PLATELET VOLUME 8.8 fL (7.4-10.4); MONOCYTES 8.9 % (2-11); NEUTROPHILS 71.2 % (40-80); PLATELET COUNT 311 10x3/uL (130-400); RBC 4.93 10x6/uL (4.00-5.40); RDW 19.4 % (11.5-14.5); WBC 11.6 10x3/uL (4.8-10.8)
[2018-05-13 15:53] LABS: APTT 24.4 SECONDS (22.8-39.4); INR 0.98 (0.85-1.17); PROTIME 12.6 SECONDS (11.6-15.0)
[2018-05-13 15:58] LABS: ALBUMIN 3.5 g/dL (3.4-5.0); ALKALINE PHOSPHATASE 110 U/L (46-116); ALT (SGPT) 19 U/L (10-68); BILIRUBIN - TOTAL 0.16 mg/dL (0.2-1.3); CALC OSMOLALITY 285 mosm/kg (275-300); CALCIUM 9.3 mg/dL (8.5-10.1); CARBON DIOXIDE 27.5 mmol/L (21.0-32.0); CHLORIDE - SERUM 105 mmol/L (98-107); CREATININE - SERUM 0.7 mg/dL (0.6-1.3); GLUCOSE 118 mg/dL (74-106); POTASSIUM - SERUM 3.7 mmol/L (3.5-5.1); PROTEIN - SERUM 7.5 g/dL (6.4-8.2); SODIUM 142 mmol/L (136-145); UREA NITROGEN 17 mg/dL (7-18); eGFR NON AFRICAN AMERICAN 89 mL/min (90-120)
[2018-05-13 16:11] LABS: CKMB 1.4 U/L (0.0-3.6); CREATINE KINASE 107 UL (21-215); MAGNESIUM - SERUM 2.1 mg/dL (1.8-2.4)
[2018-05-13 16:16] LABS: TROPONIN-I < 0.017 ng/mL (0.000-0.060)
[2018-05-13 19:34] LABS: CKMB 1.2 U/L (0.0-3.6); CREATINE KINASE 101 UL (21-215); TROPONIN-I < 0.017 ng/mL (0.000-0.060)
[2018-05-13 21:42] VITALS: BP 93/40
[2018-05-13 21:46] VITALS: BP 93/40; Ht 167.6 cm; Wt 90.9 kg
[2018-05-13] MEDS ORDERED: PROTONIX20 MG PO ×2 (22:03→22:04)
[2018-05-13] MEDS ORDERED: IRON PILL (22:07)
[2018-05-13 23:12] LABS: CREATINE KINASE 82 UL (21-215)
[2018-05-13 23:14] LABS: TROPONIN-I < 0.017 ng/mL (0.000-0.060)
[2018-05-14 05:49] LABS: CKMB 0.7 U/L (0.0-3.6); CREATINE KINASE 126 UL (21-215)
[2018-05-14 05:50] LABS: TROPONIN-I < 0.017 ng/mL (0.000-0.060)
[2018-05-14 06:34] VITALS: BP 96/47
[2018-05-14 07:58] VITALS: BP 102/46
[2018-05-14 10:43] LABS: CKMB 0.6 U/L (0.0-3.6); CREATINE KINASE 79 UL (21-215)
[2018-05-14 10:44] LABS: TROPONIN-I < 0.017 ng/mL (0.000-0.060)
[2018-05-14 12:05] VITALS: BP 109/53
[2018-05-14] MEDS ORDERED: NITROQUICK0.4 MG SL (13:10)
== END 2018-05-14 14:55 | disposition home or self-care (01) ==
LOC: D.ER 14:53 → D.EDHOLD 20:14 → OBSVTIME 20:14 → D.M2 20:31
PROVIDERS: Emergency Medicine
DX: I25.119 Atherosclerotic heart disease of native coronary artery with unspecified angina pectoris (principal); Z98.61 Coronary angioplasty status; Z95.1 Presence of aortocoronary bypass graft; E78.5 Hyperlipidemia, unspecified

== ENCOUNTER 2018-09-13 10:32 | Observation (INO) | payer MEDICARE ==
[~2018-09-13] VITALS: Ht 167.6 cm; Wt 97.0 kg
--- NOTE | ~2018-09-13 | HEMODYNAMI ---
PATIENT:ROSSY GREENE MEDICAL RECORD: [id number] : 51 LOCATION:[facility] D.2118 ADMISSION DATE: 09/13/18 Generatedon:09/14/201811:16 Patient name: ROSSY GREENE Patient #: [id number] SSN: [id number] : 1955 Date of study: 09/14/2018 Page: Of Hemodynamic Procedure Report Patient Data Patient Demographics Procedure consent was obtained First Name: ROSSY Gender: Female Last Name: RAMONA : 1955 [facility] Initial: JAGDEEP Age: 63 year(s) Patient #: [id number] Race: SSN: [id number] Additional ID: [id number] Contact details [address]: [address] [place] [address] State: [place] City: [place] Zip code: [address] Past Medical History History of disease Date Diagnosis Comments CAD Allergies: No known allergies Admission Admission Data Admission Date: 09/13/2018 Admission Time: 11:52 Room #: D.2118 Height (in.): 37.76 BSA: 1.73 (m2) Height (cm.): 95.9 BMI: 181.58 (kg/m2) Weight (lbs.): 368.17 Weight (kg.): 167 Lab Results Lab Result Date: 09/14/2018 Lab Result Time: 0:00 Biochemistry Name Units Result Min Max BUN mg/dl 15 --(--*-)-- 7 18 Creatinine mg/dl 0.7 --(*---)-- 0.6 1.3 CBC Name Units Result Min Max Hematocrit % 39.5 -*(----)-- 42 54 Hemoglobin g/dl 12.4 *-(----)-- 13.5 17.5 Procedure Procedure Types Cath Procedure Diagnostic Procedure LHC LHC w/Coronaries w/Grafts Procedure Description Procedure Date Procedure Date: 09/14/2018 Procedure Start Time: 11:05 Procedure End Time: 11:13 Procedure Staff Name Function Jonn Wilson MD Performing Physician Buddy Lopez RT Middle Card Tender LesleeNovica [employer] RT Monitor Morena Matos RT Scrub Alejandro Sierra RN Nurse Procedure Data Cath Procedure Fluoroscopy Diagnostic fluoroscopy Total fluoroscopy Time: 1 time: 1 min min Diagnostic fluoroscopy Total fluoroscopy dose: 214 dose: 214 mGy mGy Contrast Material Contrast Material Type Amount (ml) Isovue 300 37 Entry Location Entry Primary Successful Side Size Upsize Upsize Entry Closure Succes sful Closure Location (Fr) 1 (Fr) 2 (Fr) Remarks Device Remarks Femoral Right 5 Fr Exoseal artery Estimated blood loss: 5 ml Diagnostic catheters Device Type Used For End Catheter Placement MULTIPACK Pigtail 5 Fr Procedure catheter MULTIPACK JL 4.0 5Fr Procedure catheter DIAGNOSTIC AR2 MOD 5 Fr Procedure catheter ([id number]) Procedure Complications No complications Procedure Medications Medication Administration Route Dosage 0.9% NaCl I.V. 100 ml/hr Oxygen etCO2 Nasal cannula 2 l/min Heparin Flush Bag added to field 2 bags (1000units/500ml NS) Lidocaine 2% added to field 20 Zofran I.V. 4 mg Versed I.V. 2 mg Fentanyl I.V. 100 mcg Hemodynamics Rest BSA: 1.73 (m2) HGB: 12.4 (g/dl) O2 Consumption: Estimated: 159.11 (ml/min) O2 Co nsumption indexed: Estimated:91.97 (ml/min/m) Heart Rate: 66 (bpm) Snapshots Pre Cath Intra NCS Post Cath Vital Signs Time Heart Resp SPO2 etCO2 NIBP (mmHg) Rhythm Pain Sedation Rate (ipm) (%) (mmHg) Status Level (bpm) 10:52:52 67 11 100 0 155/78(113) NSR 0 (11) 10(A) , No pain 10:57:13 67 15 99 0 154/74(97) NSR 0 (11) 10(A) , No pain 11:01:35 61 15 98 34.3 138/70(89) NSR 0 (11) 10(A) , No pain 11:05:51 65 16 99 35 129/69(87) NSR 0 (11) 10(A) , No pain 11:10:07 67 13 98 35.8 124/66(80) NSR 0 (11) 10(A) , No pain Medications Time Medication Route Dose Verified Delivered Reason Notes Eff ectiveness by by 10:51:41 0.9% NaCl I.V. 100 Alejandro Alejandro Per ml/hr Rigo Sierra physician RN RN 10:51:49 Oxygen etCO2 2 Alejandro Alejandro for low 02 Nasal l/min Lorcodie Sierra sats cannula RN RN 10:52:00 Heparin Flush added 2 Alejandro Alejandro used for Bag to bags Lorigan Rigo procedure (1000units/500ml field RN RN NS) 10:52:10 Lidocaine 2% added 20ml Alejandro Alejandro for local to vial Lorigan Lorigan anesthetic field RN RN 10:56:41 Zofran I.V. 4 mg Alejandro Alejandro for nausea Rigo Sierra RN RN 11:05:14 Versed I.V. 2 mg Alejandro Alejandro for Lorigan Lorigan sedation RN RN 11:05:22 Fentanyl I.V. 100 Alejandro Alejandro for mcg Lorigan Lorigan sedation RN recording studio set up worker Log Time Note 10:35:43 Buddy Lopez RT(R) sent for patient. Start room use. 10:35:44 Time tracking: Regular hours (M-F 7:00 - 5:00) 10:35:47 Plan of Care:Hemodynamics will remain stable., Cardiac rhythm will remain stable., Comfort level will be maintained., Respiratory function will remain adequate., Patient/ family verbilizes understanding of procedure., Procedure tolerated without complication., Recovers from procedure without complications.. 10:35:49 Diagnostic Cath status Elective 10:35:50 Signed procedure consent form obtained from patient. 10:36:26 Lab Result : BUN 15 mg/dl 10:36:26 Lab Result : Creatinine 0.7 mg/dl 10:36:26 Lab Result : Hemoglobin 12.4 g/dl 10:36:26 Lab Result : Hematocrit 39.5 % 10:37:05 Patient Height : 37.76 inches 10:37:10 Patient Weight : 368.17 lbs 10:45:54 Patient received from Med II to CCL 2 Alert and oriented. Tansferred to table in Supine position. 10:45:55 Warm blankets applied, and sania hugger turned on for patient comfort. 10:45:55 Correct patient and procedure confirmed by team. 10:46:00 ECG and BP/O2 sat monitors applied to patient. 10:51:41 0.9% NaCl 100 ml/hr I.V. was administered by Alejandro Sierra RN; Per physician; 10:51:45 Vital chart was started 10:51:46 Full Disclosure recording started 10:51:49 Oxygen 2 l/min etCO2 Nasal cannula was administered by Alejandro Sierra RN; for low 02 sats; 10:52:00 Heparin Flush Bag (1000units/500ml NS) 2 bags added to field was administered by Alejandro Sierra RN; used for procedure; 10:52:10 Lidocaine 2% 20ml vial added to field was administered by Alejandro Sierra RN; for local anesthetic; 10:53:11 Baseline sample Acquired. 10:53:15 Rhythm: sinus rhythm 10:53:17 Pre-procedure instructions explained to patient. 10:53:17 Pre-op teaching completed and patient verbalized understanding. 10:53:19 Family unavailable. 10:53:24 Patient NPO since Midnight. 10:53:31 Patient allergic to No known allergies 10:53:44 Is patient on blood thinner?Yes 10:53:52 PRE LOADED PLAVIX 10:53:58 Patient diabetic? No. 10:54:00 Patient not . Patient is over age 55. 10:54:04 Previous problem with sedation/anesthesia? Yes NAUSEA 10:54:07 Snore? Yes 10:54:08 Sleep apnea? No 10:54:10 Deviated septum? No 10:54:11 Opens mouth fully? Yes 10:54:11 Sticks out tongue? Yes 10:54:13 Airway obstruction? No ? 10:54:20 Dentures? Yes PALLET IN 10:56:36 Pre procedure: right dorsailis pedis pulse 2+ Normal; easily identifiable; not easily obliterated 10:56:41 Zofran 4 mg I.V. was administered by Alejandro Sierra RN; for nausea; 10:56:48 Patient pain scale 0/10 ?. 10:56:53 IV patent on arrival in right hand with 0.9% NaCl at [facility]. 10:56:56 Lab results completed and on chart. 10:57:00 Right groin area was prepped with chlora-prep and draped in sterile fashion 10:57:01 Alarms reviewed by R. N. 10:57:01 Sharps counted by scrub and verified by R.N. 10:57:04 Use device set Femoral Dx 10:57:05 ACIST Syringe (10231) opened to sterile field. 10:57:06 Bag Decanter (2002S) opened to sterile field. 10:57:07 ACIST Hand Control (31191) opened to sterile field. 10:57:07 ACIST Manifold (79041) opened to sterile field. 10:57:13 Medline Cath Pack ([id number]) opened to sterile field. 10:57:13 DIAGNOSTIC WIRE .035 260cm J wire (704297) opened to sterile field. 10:57:14 DIAGNOSTIC Multipack 5Fr catheter set ([id number]) opened to sterile field. 10:57:15 Tegaderm 4 x 4 (1626W) opened to sterile field. 10:57:17 SHEATH 5FR Troy (CGN702) opened to sterile field. 11:03:35 --------ALL STOP TIME OUT------ 11:03:35 Final Timeout: patient, procedure, and site verified with staff and physician. All members of the team are in agreement. 11:03:37 Right groin site verified by team. 11:03:40 Maximum allowable contrast dose 211ml. Physician notified. 11:03:43 Fire Safety Assessment: A--An alcohol-based skin anteseptic being used preoperatively., C--Open oxygen or nitrous oxide is being used., D--An ESU, laser, or fiber-optic light is being used. 11:03:46 Physical assessment completed. ASA score P 2 - A patient with mild systemic disease as per Jonn Wilson MD. 11:03:48 Sedation plan: IV Moderate Sedation Medication:Versed, Fentanyl 11:04:44 Procedure started. 11:05:01 Local anesthetic to right femoral artery with Lidocaine 2% by Jonn Wilson MD.INITIAL ACCESS ONLY 11:05:14 Versed 2 mg I.V. was administered by Alejandro Sierra RN; for sedation; 11:05:15 A 5 Fr sheath was inserted into the Right Femoral artery 11:05:22 Fentanyl 100 mcg I.V. was administered by Alejandro Sierra RN; for sedation; 11:05:49 A MULTIPACK Pigtail 5 Fr catheter was advanced over the wire and used for Procedure. 11:06:15 LV gram done using HALLMAN 11:06:18 Injector settings: Ml/sec: 10, Volume: 20, 11:06:22 EF : 60 % 11:06:25 Catheter removed. 11:06:30 A MULTIPACK JL 4.0 5Fr catheter was advanced over the wire and used for Procedure. 11:07:22 LCA angiography performed. 11:07:23 Catheter removed. 11:07:48 A DIAGNOSTIC AR2 MOD 5 Fr catheter ([id number]) was advanced over the wire and used for Procedure. 11:08:23 SVG to RCA angiography performed. 11:08:26 Catheter removed. 11:08:35 EXOSEAL 5Fr (EX500) opened to sterile field. 11:08:53 Sheath removed intact; hemostasis achieved with Exoseal to the Right Femoral artery. 11:09:01 Procedure ended.(Physican Out) 11:09:24 Fluoroscopy time 01.00 minutes. 11:10:00 Flurop Dose total: 214 11:10:00 Fluoroscopy dose: 214 mGy 11:10:04 Contrast amount:Isovue 300 37ml. 11:10:05 Sharps counted by scrub and verified by R.N. 11:10:09 Post-op/insertion site Right Femoral artery dressed using a 4 x 4 and Tegaderm. 11:10:11 Post-procedure physical assessment completed. ASA score P 2 - A patient with mild systemic disease as per Jonn Wilson MD. 11:10:14 Post procedure rhythm: sinus rhythm 11:10:16 Estimated blood loss: 5 ml 11:10:17 Post procedure instruction explained to patient.Patient verbalizes understanding. 11:10:17 Patient needs reinforcement of post procedure teaching. 11:12:40 Procedure and supply charges have been captured, reviewed, submitted and are correct. 11:12:47 Procedure Complication : No complications 11:12:49 Vital chart was stopped 11:12:49 See physician's report for complete and final results. 11:13:18 Report given to Pre/Post Procedure Room. 11:13:21 Patient transfered to Pre/Post Procedure Room with Bed. 11:13:23 Procedure ended. 11:13:23 Full Disclosure recording stopped 11:13:28 End room use (Document Last) Device Usage Item Name Manufacture Quantity Catalog Hospital Part Current Minimal L ot# / Number Charge Number Stock Stock Serial# Code ACIST Acist 1 40130 436479 501668 611020 20 Syringe Medical (56151) Systems Inc Bag Microtek 1 835933 95236 475190 5 Decanter Medical Inc. () ACIST Hand Acist 1 57407 566957 580081 733714 5 Control Medical (26212) Systems Inc ACIST Acist 1 14429 459129 965090 560150 5 Manifold Medical (34150) Systems Inc Medline Medline 1 [id number] 767274 11078 281066 5 Cath Pack ([id number]) DIAGNOSTIC St Taco 1 280618 168015 748134 202832 30 WIRE .035 260cm J wire (370313) DIAGNOSTIC Cardinal 1 RU2690 712046 17944 612404 30 Multipack Health 5Fr catheter set (VI5544) Tegaderm 4 3M 1 1626W 893363 459826 620876 5 x 4 (1626W) SHEATH 5FR Terumo 1 YXS959 753505 622288 340293 5 Troy (NYH011) MULTIPACK Cardinal 1 872153 5 Pigtail 5 Health Fr catheter MULTIPACK Cardinal 1 639661 5 JL 4.0 5Fr Health catheter DIAGNOSTIC Cardinal 1 [id number] 613303 309211 609164 20 AR2 MOD 5 Health Fr catheter (630652O) EXOSEAL 5Fr Cardinal 1 EX500 745073 176179 225635 10 (EX500) Health Signature Audit [place] Stage Time Signature Unsigned Intra-Procedure 09/14/2018 Leslee Rodney 11:16:27 AM RT(R) Signatures Monitor : Leslee Rodney Signature : RT Date : Time : [address] [address]
[~2018-09-13 10:32] MED LIST changes: +IRON PILL; +NITROQUICK0.4 MG SL; +PROTONIX20 MG PO
[2018-09-13 11:19] LABS: BASOPHILS 0.2 % (0-2); EOSINOPHILS 1.2 % (0-7); HEMATOCRIT 39.5 % (36.0-48.0); HEMOGLOBIN 12.4 g/dL (12-16); IMMATURE GRANULOCYTES 0.2 % (0-5); LYMPHOCYTES 17.1 % (15-50); MCH 24.7 pg (26.0-34.0); MCHC 31.4 g/dL (31.0-37.0); MCV 78.5 fL (80.0-100.0); MEAN PLATELET VOLUME 9.3 fL (7.4-10.4); MONOCYTES 8.7 % (2-11); NEUTROPHILS 72.6 % (40-80); PLATELET COUNT 295 10x3/uL (130-400); RBC 5.03 10x6/uL (4.00-5.40); RDW 16.5 % (11.5-14.5); WBC 10.3 10x3/uL (4.8-10.8)
[2018-09-13 11:32] LABS: APTT 26.4 SECONDS (22.8-39.4); INR 0.99 (0.85-1.17); PROTIME 12.6 SECONDS (11.6-15.0)
[2018-09-13 11:34] LABS: ALBUMIN 3.3 g/dL (3.4-5.0); ALKALINE PHOSPHATASE 105 U/L (46-116); ALT (SGPT) 23 U/L (10-68); BILIRUBIN - TOTAL 0.18 mg/dL (0.2-1.3); CALC OSMOLALITY 282 mosm/kg (275-300); CALCIUM 8.6 mg/dL (8.5-10.1); CARBON DIOXIDE 26.5 mmol/L (21.0-32.0); CHLORIDE - SERUM 105 mmol/L (98-107); CREATININE - SERUM 0.7 mg/dL (0.6-1.3); GLUCOSE 116 mg/dL (74-106); POTASSIUM - SERUM 3.9 mmol/L (3.5-5.1); PROTEIN - SERUM 6.9 g/dL (6.4-8.2); SODIUM 141 mmol/L (136-145); UREA NITROGEN 15 mg/dL (7-18); eGFR NON AFRICAN AMERICAN 89 mL/min (90-120)
[2018-09-13 11:44] LABS: CKMB 3.3 U/L (0.0-3.6); CREATINE KINASE 273 UL (21-215); MAGNESIUM - SERUM 1.9 mg/dL (1.8-2.4); TROPONIN-I < 0.017 ng/mL (0.000-0.060)
[2018-09-13 14:05] VITALS: BP 132/65; BMI 34.1
[2018-09-13 14:59] VITALS: Ht 167.6 cm; Wt 97.0 kg
[2018-09-13 15:18] VITALS: BP 115/61
[2018-09-13 21:01] VITALS: BP 120/51
[2018-09-14 01:06] VITALS: BP 123/55
[2018-09-14 06:05] VITALS: BP 117/63
[2018-09-14 09:38] VITALS: BP 110/54
--- NOTE | 2018-09-15 11:54 | DS ---
PATIENT:ROSSY SON :51 MEDICAL RECORD: [id number] DISCHARGE SUMMARY ADMISSION DATE: 09/13/18 DISCHARGE DATE: 09/14/18 DATE OF DISCHARGE: 09/14/2018 DIAGNOSES: 1. Angina. 2. Coronary artery disease. 3. Hypertension. 4. Hyperlipidemia. HISTORY: Mrs. Son presents with anginal symptomatology, but cardiac catheterization reveals no significant new disease. Her heart rate and blood pressure are already optimal. Discharged home to follow up with cardiology in 1 month. TRANSINT:[id number] Voice Confirmation ID: [id number] DOCUMENT ID: [id number] ALEXANDER ROYAL MD at 1154 CC: [id number] DICTATION DATE: 09/14/18 1113 COMPLAINT INVESTIGATOR: 09/15/18 0440 DIS IN 09/14/18 [facility] [address] [place] [address]
--- NOTE | 2018-09-15 11:54 | OP ---
PATIENT NAME: ROSSY GREENE MEDICAL RECORD: [id number] :51 LOCATION:[facility] ADMISSION DATE:09/13/18 SURGEON: ALEXANDER ROYAL MD DATE OF OPERATION: 09/14/2018 PROCEDURES: 1. Left heart catheterization. 2. Selective coronary angiography. 3. Left ventriculogram. 4. Vein graft angiography. INDICATIONS: Angina and coronary artery disease. PROCEDURE IN DETAIL: After informed consent was obtained and after a detailed explanation of the risks, benefits as well as alternative therapies, the patient elected to proceed with angiogram and heart catheterization. The right femoral area was prepped and draped in normal sterile fashion. Right femoral artery was cannulated via modified Seldinger technique with placement of 6-Eritrean sheath. All catheters exchanged through this sheath. FINDINGS: Left ventriculogram was performed in standard 30-degree HALLMAN view, reveals good cardiac wall motion throughout all segments. Overall ejection fraction estimated 60%. SELECTIVE CORONARY ANGIOGRAPHY: 1. Left main showed no significant angiographic disease. 2. Left anterior descending has mild irregularities, but no flow-limiting stenosis. 3. The left circumflex has mild irregularities, but no flow-limiting stenosis. 4. Right coronary is totally occluded. 5. Vein graft to the RCA is widely patent. Distal RCA is widely patent. OVERALL IMPRESSION: Wide patency of the vein graft to the RCA. No significant disease on the left. Continue medical management of the coronary artery disease and cardiac risk factors. TRANSINT:[id number] Voice Confirmation ID: [id number] DOCUMENT ID: [id number] ALEXANDER ROYAL MD at 1154 CC: [id number] DICTATION DATE: 09/14/18 1112 CHARGE MASTER ANALYST: 09/14/18 1124 DIS IN 09/14/18 [place] [address]
--- NOTE | 2018-09-15 11:54 | EC ---
PATIENT:ROSSY GREENE DATE OF SERVICE: 09/13/18 SEX: F MEDICAL RECORD: [id number] DATE OF : 51 [facility] AGE OF PATIENT: 63 ADMISSION DATE: 09/13/18 REFERRING PHYSICIAN: INTERPRETING PHYSICIAN: ALEXANDER WILSON MD ECHOCARDIOGRAM REPORT ECHO CHARGES 4 ECHO COMPLETE Date: 09/13/18 CLINICAL DIAGNOSIS: CP ECHOCARDIOGRAPHIC MEASUREMENTS (adult normal given) AC root (d.<3.7cm) 2.8 cm LV Septum d (<1.2 cm> 0.9 cm Valve Excursion 1.3 cm LV Septum (systole) 1.4 cm Left Atria (s.<4.0cm> 3.1 cm LVPW d(<1.2cm) 1.6 cm RV (d.<2.3cm) 2.6 cm LVPW (sytole) cm LV diastole(<5.6CM) 5.3 cm MV E-F(>70mm/sec) cm LV systole 3.6 cm LVOT Diameter 1.5 cm MV exc.(>10mm) cm Est.ejection fraction (50-75%) % DOPPLER: LVIT cm/sec A 77.0 cm/sec E 129 cm/sec LA cm/sec RVSP 32.0 mmHg LVOT 98.0 cm/sec AOP1/2T m/s Asc. Ao 200 cm/sec RVOT 48.0 cm/sec RA cm/sec PA 87.0 cm/sec AV Gradient Peak 16.0 mmHg AV Mean 9.2 mmHg AV Area 0.9 cm MV Gradient Peak 8.5 mmHg MV Mean 2.7 mmHg MV Area cm COMMENTS: Entry Processor: Nilo GONZALEZOE Trim Mechanic: 1 Dr. Wilson TAPE# PACS Pericardial Effusion N DATE OF SERVICE: 09/13/2018 PROCEDURE: Echocardiogram. FINDINGS: 1. Left ventricular chamber size is within normal limits. Left ventricular systolic function is normal. Overall ejection fraction estimated at 60%. 2. Left atrium, right atrium and right ventricular chamber sizes are within normal limits. 3. Valvular structures have normal structure and motion. ECHOCARDIOGRAM REPORT [id number] ROSSY GREENE 4. Doppler interrogation reveals mild mitral regurgitation, trace tricuspid regurgitation, no other valvular insufficiency or stenosis. 5. No evidence of pericardial effusion or left ventricular thrombus. TRANSINT:[id number] Voice Confirmation ID: [id number] DOCUMENT ID: [id number] ALEXANDER WILSON MD at 1154 CC: [id number] DICTATION DATE: 09/14/18 1131 BUSINESS PLANNING DIRECTOR: 09/14/18 1144 DIS IN 09/14/18 [facility] [address] [place] [id number]
== END 2018-09-14 13:10 | disposition home or self-care (01) ==
LOC: D.ER 10:32 → OBSVTIME 11:52 → D.EDHOLD 11:52 → D.M2 12:26 → D.CLR 09-14 11:25
PROVIDERS: Family Medicine; ADMIT Internal Medicine Interventional Cardiology; ATTEND Internal Medicine Interventional Cardiology
DX: I25.119 Atherosclerotic heart disease of native coronary artery with unspecified angina pectoris (principal); I10 Essential (primary) hypertension; E78.5 Hyperlipidemia, unspecified

== ENCOUNTER → 2019-01-24 07:19 | Outpatient (CLI) | payer MEDICARE, OTHER ==
[2018-09-13 14:59] VITALS: BMI 34.1
== END | disposition home or self-care (01) ==
LOC: D.CT 07:19
PROVIDERS: ATTEND Family Medicine
DX: R06.00 Dyspnea, unspecified (principal)

== ENCOUNTER → 2019-05-04 12:58 | Outpatient (CLI) | payer MEDICARE, OTHER ==
[2018-09-13 14:59] VITALS: BMI 34.1
[~2019-05-04 12:58] MED LIST changes: +ALENDRONATE SOD35 MG PO; +BENTYL10 MG PO; +CIPRO500 MG PO; +CYANOCOBAL1000 MCG/4 SC; +FERROUS SULFAT325 MG PO; -IRON PILL; +MIRALAX17 GM PO; +OXYCODONE HCL5 M1 PO; +TYLENOL #4 W/CO1 TAB PO; +VISTARIL50 MG PO; +XALATAN 0.0052.5 ML EACH EYE; +ZOFRAN ODT4 MG/UDTAB PO
== END | disposition home or self-care (01) ==
LOC: D.LABREF 12:58
PROVIDERS: ATTEND Nurse Practitioner Family
DX: M17.11 Unilateral primary osteoarthritis, right knee (principal)

== ENCOUNTER 2019-05-04 13:14 | Inpatient (IN) | payer MEDICARE, OTHER ==
[~2019-05-04] VITALS: Ht 167.6 cm; Wt 94.8 kg
[~2019-05-04 13:14] MED LIST changes: -ALENDRONATE SOD35 MG PO; -BENTYL10 MG PO; -CIPRO500 MG PO; -CYANOCOBAL1000 MCG/4 SC; -MIRALAX17 GM PO; -OXYCODONE HCL5 M1 PO; -TYLENOL #4 W/CO1 TAB PO; -VISTARIL50 MG PO; -XALATAN 0.0052.5 ML EACH EYE; -ZOFRAN ODT4 MG/UDTAB PO
[2019-05-09] MEDS ORDERED: TYLENOL #4 W/CO1 TAB PO (13:14)
[2019-05-09] MEDS ORDERED: BENTYL10 MG PO (13:16)
[2019-05-09] MEDS ORDERED: XALATAN 0.0052.5 ML EACH EYE (13:17)
[2019-05-09] MEDS ORDERED: ASPIRIN EC81 M1 PO (13:32)
[2019-05-10 11:35] LABS: BASOPHILS 0.1 % (0-2); EOSINOPHILS 1.3 % (0-7); HEMATOCRIT 42.5 % (36.0-48.0); HEMOGLOBIN 13.2 g/dL (12-16); IMMATURE GRANULOCYTES 0.1 % (0-5); LYMPHOCYTES 20.7 % (15-50); MCH 25.6 pg (26.0-34.0); MCHC 31.1 g/dL (31.0-37.0); MCV 82.5 fL (80.0-100.0); MEAN PLATELET VOLUME 9.1 fL (7.4-10.4); MONOCYTES 5.3 % (2-11); NEUTROPHILS 72.5 % (40-80); PLATELET COUNT 322 10x3/uL (130-400); RBC 5.15 10x6/uL (4.00-5.40); RDW 15.4 % (11.5-14.5); WBC 8.7 10x3/uL (4.8-10.8)
[2019-05-10 11:45] LABS: CALC OSMOLALITY 285 mosm/kg (275-300); CALCIUM 9.4 mg/dL (8.5-10.1); CARBON DIOXIDE 28.5 mmol/L (21.0-32.0); CHLORIDE - SERUM 104 mmol/L (98-107); CREATININE - SERUM 0.7 mg/dL (0.6-1.3); GLUCOSE 89 mg/dL (74-106); POTASSIUM - SERUM 3.6 mmol/L (3.5-5.1); SODIUM 143 mmol/L (136-145); UREA NITROGEN 18 mg/dL (7-18); eGFR NON AFRICAN AMERICAN 89 mL/min (90-120)
[2019-05-10 11:47] LABS: APTT 25.6 SECONDS (22.8-39.4); INR 0.99 (0.85-1.17); PROTIME 12.6 SECONDS (11.6-15.0)
[2019-05-10 12:29] LABS: APPEARANCE CLEAR (CLEAR); BACTERIA FEW /hpf (NEGATIVE); BILIRUBIN NEGATIVE (NEGATIVE); COLOR YELLOW (YELLOW); EPITHELIAL CELLS 0-5 /hpf (0-5); GLUCOSE NEGATIVE (NEGATIVE); KETONE NEGATIVE (NEGATIVE); MUCUS <1+ /lpf (NONE SEEN); NITRITE NEGATIVE (NEGATIVE); PROTEIN NEGATIVE (NEGATIVE); RED CELLS - URINE NONE SEEN /hpf (0-5); SPECIFIC GRAVITY 1.025 (1.005-1.020); UROBILINOGEN NORMAL (NORMAL); WHITE CELLS - URINE 0-5 /hpf (NEGATIVE)
[2019-05-16] VITALS (10 sets, daily range): BP systolic 116–139; BP diastolic 55–89; BMI 33.8
[2019-05-16] MEDS ORDERED: ALENDRONATE SOD35 MG PO (06:35)
[2019-05-16] MEDS ORDERED: BENTYL10 MG PO (06:36)
[2019-05-16] MEDS ORDERED: CYANOCOBAL1000 MCG/4 SC (06:36)
[2019-05-16] MEDS ORDERED: MIRALAX17 GM PO (06:38)
--- NOTE | 2019-05-16 10:24 | NUR ---
PT IS READY FOR DISCHARGE HOWEVER ROOM BEING CLEANED. WILL TRANSPORT WHEN ITS READY. XRAY HERE NOW FOR POST OP ORDERS.
[2019-05-16 10:47] LABS: APPEARANCE CLEAR (CLEAR); BACTERIA FEW /hpf (NEGATIVE); BILIRUBIN NEGATIVE (NEGATIVE); COLOR YELLOW (YELLOW); EPITHELIAL CELLS 0-5 /hpf (0-5); GLUCOSE NEGATIVE (NEGATIVE); HYALINE CAST RARE /lpf (NONE SEEN); KETONE NEGATIVE (NEGATIVE); MUCUS <1+ /lpf (NONE SEEN); NITRITE NEGATIVE (NEGATIVE); PROTEIN NEGATIVE (NEGATIVE); RED CELLS - URINE OCC /hpf (0-5); SPECIFIC GRAVITY 1.025 (1.005-1.020); UROBILINOGEN NORMAL (NORMAL); WHITE CELLS - URINE OCC /hpf (NEGATIVE)
--- NOTE | 2019-05-16 20:00 | NUR ---
ALERT RESTING IN BED, CPM IN USE TO LEFT KNEE, SEE SHIFT ASSESSMENT, CALL LIGHT IN REACH
[2019-05-17] VITALS: BP 97/50
[2019-05-17 04:00] VITALS: BP 115/55
--- NOTE | 2019-05-17 07:10 | NUR ---
ALERT AND ORIENTED, RESTING IN BED. NO C/O PAIN. NO S/S OF ACUTE DISTRESS NOTED. POD #1 LTK, DRESSING C/D/I. CPM ON AT THIS TIME. ON 4L O2, NC. IV TO RIGHT HAND, 1/2 NS INFUSING @ 50ML/HR. SITE PATENT WITHOUT REDNESS OR SWELLING. DENIES ANY NEEDS AT THIS TIME. CALL LIGHT IN REACH. WILL CONTINUE TO MONITOR.
[2019-05-17 07:22] LABS: CALC OSMOLALITY 277 mosm/kg (275-300); CALCIUM 7.9 mg/dL (8.5-10.1); CARBON DIOXIDE 26.1 mmol/L (21.0-32.0); CHLORIDE - SERUM 102 mmol/L (98-107); CREATININE - SERUM 0.8 mg/dL (0.6-1.3); GLUCOSE 114 mg/dL (74-106); POTASSIUM - SERUM 4.2 mmol/L (3.5-5.1); SODIUM 138 mmol/L (136-145); UREA NITROGEN 14 mg/dL (7-18); eGFR NON AFRICAN AMERICAN 76 mL/min (90-120)
[2019-05-17 07:30] LABS: HEMATOCRIT 36.7 % (36.0-48.0); HEMOGLOBIN 11.5 g/dL (12-16); LYMPHOCYTES 14.3 % (15-50); MCH 25.2 pg (26.0-34.0); MCHC 31.3 g/dL (31.0-37.0); MCV 80.3 fL (80.0-100.0); MEAN PLATELET VOLUME 8.7 fL (7.4-10.4); NEUTROPHILS 73.4 % (40-80); RBC 4.57 10x6/uL (4.00-5.40); RDW 14.3 % (11.5-14.5); WBC 9.7 10x3/uL (4.8-10.8)
[2019-05-17 07:40] LABS: PLATELET COUNT 255 10x3/uL (130-400)
[2019-05-17 08:13] VITALS: BP 139/63
--- NOTE | 2019-05-17 10:46 | NUR ---
I have reviewed this patient and I concur with the Shift Assessment completed by the Licensed Practical Nurse today this shift.
[2019-05-17 12:25] VITALS: BP 135/64
--- NOTE | 2019-05-17 18:38 | NUR ---
IV CAME OUT, UNABLE TO GAIN IV ACCESS. CALLED ICU TO SEE IF ANOTHER NURSE COULD ATTEMPT AND IV, WAS TOLD IT WOULD BE PASSED ON. PT DENIES ANY NEEDS. RESTING IN BED, EYES OPEN. FAMILY AT BEDSIDE.
[2019-05-17 20:00] VITALS: BP 136/61
[2019-05-17 20:25] LABS: APPEARANCE CLEAR (CLEAR); BILIRUBIN NEGATIVE (NEGATIVE); COLOR YELLOW (YELLOW); GLUCOSE NEGATIVE (NEGATIVE); KETONE NEGATIVE (NEGATIVE); NITRITE NEGATIVE (NEGATIVE); PROTEIN NEGATIVE (NEGATIVE); UROBILINOGEN NORMAL (NORMAL)
--- NOTE | 2019-05-18 00:19 | NUR ---
PT RESTING IN BED. EYES CLOSED. NO SIGNS OF DISTRESS. BREATHING EVEN AND UNLABORED. NO IV SITE PRESENT. LUNG SOUNDS CLEAR. BOWEL SOUNDS ACTIVE. LT KNEE DRESSING CLEAN DRY AND INTACT. WILL CONTINUE PLAN OF CARE. CALL LIGHT IN REACH. BED LOWERED AND LOCKED. BED RAILS UPX2. FAMILY AT BEDSIDE.
[2019-05-18 04:00] VITALS: BP 117/62
--- NOTE | 2019-05-18 05:22 | NUR ---
I have reviewed this patient and I concur with the Shift Assessment completed by the Licensed Practical Nurse today this shift.
[2019-05-18 06:08] LABS: HEMATOCRIT 34.2 % (36.0-48.0); HEMOGLOBIN 10.4 g/dL (12-16); RBC 4.12 10x6/uL (4.00-5.40); WBC 10.8 10x3/uL (4.8-10.8)
[2019-05-18 06:09] LABS: BASOPHILS 0.1 % (0-2); EOSINOPHILS 0.4 % (0-7); IMMATURE GRANULOCYTES 0.4 % (0-5); LYMPHOCYTES 12.3 % (15-50); MCH 25.2 pg (26.0-34.0); MCHC 30.4 g/dL (31.0-37.0); MEAN PLATELET VOLUME 9.3 fL (7.4-10.4); MONOCYTES 14.6 % (2-11); NEUTROPHILS 72.2 % (40-80); PLATELET COUNT 296 10x3/uL (130-400); RDW 15.2 % (11.5-14.5)
[2019-05-18 06:15] LABS: CALC OSMOLALITY 271 mosm/kg (275-300); CALCIUM 8.2 mg/dL (8.5-10.1); CARBON DIOXIDE 24.9 mmol/L (21.0-32.0); CHLORIDE - SERUM 101 mmol/L (98-107); CREATININE - SERUM 0.8 mg/dL (0.6-1.3); GLUCOSE 110 mg/dL (74-106); POTASSIUM - SERUM 4.4 mmol/L (3.5-5.1); SODIUM 136 mmol/L (136-145); UREA NITROGEN 9 mg/dL (7-18); eGFR NON AFRICAN AMERICAN 76 mL/min (90-120)
--- NOTE | 2019-05-18 07:05 | NUR ---
ALERT AND ORIENTED, RESTING IN BED EYES OPEN. NO C/O PAIN. NO S/S OF ACUTE DISTRESS NOTED. POD #2 LTK, DRESSING C/D/I. DENIES ANY NEEDS AT THIS TIME. CALL LIGHT IN REACH. WILL CONTINUE TO MONITOR.
[2019-05-18] MEDS ORDERED: ELIQUIS2.5 MG PO (08:23)
[2019-05-18] MEDS ORDERED: ZOFRAN ODT4 MG/UDTAB PO (08:24)
[2019-05-18] MEDS ORDERED: OXYCODONE HCL5 M1 PO (08:25)
[2019-05-18] MEDS ORDERED: VISTARIL50 MG PO (08:25)
[2019-05-18] MEDS ORDERED: CIPRO500 MG PO (08:26)
[2019-05-18 09:23] VITALS: BP 136/65
--- NOTE | 2019-05-18 11:45 | NUR ---
I have reviewed this patient and I concur with the Shift Assessment completed by the Licensed Practical Nurse today this shift.
[2019-05-18 13:08] VITALS: BP 126/66
[2019-05-18 14:56] VITALS: BP 128/59
--- NOTE | 2019-05-18 16:51 | MORECARE ---
CASE MANAGEMENT DISCHARGE SUMMARY PATIENT: ROSSY GREENE UNIT: [id number] ADM DATE: 05/16/19 AGE: 63 : [birth year] SEX: F ROOM/BED: D.2212 AUTHOR: GUMARO CLAY PHYSICIAN: REFERRING PHYSICIAN: ANGELICA AYALA DO DATE OF SERVICE: 05/18/19 Discharge Plan Patient Name: ROSSY GREENE Facility: [facility]:[place] : 1955 Planned Disposition: Home Health Service Anticipated Discharge Date: Discharge Date: Expected LOS: Initial Reviewer: [email or web address] Initial Review Date: 05/18/2019 Generated: 05/18/19 5:51 pm Comments DCP- Discharge Planning Updated by [id number]: Raisa Rico on 05/18/19 3:[address] Patient Name: ROSSY GREENE Admission Status: Urgent Accout number: [id number] Admission Date: 05-16-2019 : 1955 Admission Diagnosis: Attending: ANGELICA AYALA Current LOS: 2 Anticipated DC Date: Planned Disposition: Home Health Service Primary Insurance: MEDICARE A & B Discharge Planning Comments: CM MET WITH PATIENT AFTER OBTAINING VERBAL CONSENT. PLANS TO DC TO HOME TOMORROW. [facility] HH. REFERRAL FAXED. CM WILL FOLLOW AND ASSIST. Paramedic Instructor: Raisa Rico DCPIA - Discharge Planning Initial Assessment Updated by [email or web address]: Raisa Rico on 05/18/19 4:48 pm * Is the patient Alert and Oriented? Yes * PCP [facility] * [facility] * Preadmission Environment Home with Family * ADLs Independent * Other Equipment CMP, WALKER, BSC * Additional services required to return to the preadmission environment? Yes * Can the patient safely return to the preadmission environment? Yes * Has this patient been hospitalized within the prior 30 days at any hospital? No External Providers External Provider: [facility] Next Contact Date: Service Request Date: Service Type: Resolution: Reviewer: Comments: Patient Name: ROSSY GREENE Page [phone] at 1651 All edits/amendments must be made on the electronic document DICTATION DATE: 05/18/191649 SUPERVISOR ASBESTOS TEXTILE: TAMARA 05/18/191649 RPT#: [id number] DC DATE: STATUS: ADM IN [facility] [address] [place] [address] END OF REPORT
--- NOTE | 2019-05-18 18:19 | NUR ---
ALERT AND ORIENTED, RESTING IN BED. NO C/O PAIN. NO S/S OF ACUTE DISTRESS NOTED. DENIES ANY NEEDS AT THIS TIME. CALL LIGHT IN REACH. WILL CONTINUE TO MONITOR.
--- NOTE | 2019-05-19 02:12 | NUR ---
PT RESTING IN BED. EYES CLOSED. NO SIGNS OF DISTRESS. BREATHING EVEN AND UNLABORED. NO IV SITE PRESENT. BOWEL SOUNDS ACTIVE. LUNG SOUNDS CLEAR. SKIN CLEAN DRY AND INTACT. LT KNEE DRESSING CLEAN DRY AND INTACT. TEDS AND SCDS ON. WILL CONTINUE PLAN OF CARE. CALL LIGHT IN REACH. ROMEO LOWERED AND LOCKED. BED RAILS UPX2. FAMILY AT BEDSIDE.
[2019-05-19 04:00] VITALS: BP 112/52
--- NOTE | 2019-05-19 04:51 | NUR ---
I have reviewed this patient and I concur with the Shift Assessment completed by the Licensed Practical Nurse today this shift.
[2019-05-19 06:32] LABS: BASOPHILS 0.2 % (0-2); EOSINOPHILS 2.2 % (0-7); HEMATOCRIT 35.3 % (36.0-48.0); HEMOGLOBIN 10.9 g/dL (12-16); IMMATURE GRANULOCYTES 0.3 % (0-5); LYMPHOCYTES 11.7 % (15-50); MCH 25.5 pg (26.0-34.0); MCHC 30.9 g/dL (31.0-37.0); MCV 82.7 fL (80.0-100.0); MONOCYTES 11.3 % (2-11); NEUTROPHILS 74.3 % (40-80); PLATELET COUNT 294 10x3/uL (130-400); RBC 4.27 10x6/uL (4.00-5.40); WBC 10.5 10x3/uL (4.8-10.8)
[2019-05-19 06:51] LABS: CALC OSMOLALITY 265 mosm/kg (275-300); CALCIUM 8.8 mg/dL (8.5-10.1); CARBON DIOXIDE 26.1 mmol/L (21.0-32.0); CHLORIDE - SERUM 99 mmol/L (98-107); CREATININE - SERUM 0.8 mg/dL (0.6-1.3); GLUCOSE 103 mg/dL (74-106); POTASSIUM - SERUM 4.1 mmol/L (3.5-5.1); SODIUM 133 mmol/L (136-145); UREA NITROGEN 12 mg/dL (7-18); eGFR NON AFRICAN AMERICAN 76 mL/min (90-120)
--- NOTE | 2019-05-19 07:10 | NUR ---
ALERT AND ORIENTED, RESTING IN BED. NO C/O PAIN. NO S/S OF ACUTE DISTRESS NOTED. UP WITH ASSIST. CPM ON AT THIS TIME. DRESSING TO LEFT KNEE, C/D/I. DENIES ANY NEEDS AT THIS TIME. CALL LIGHT IN REACH. WILL CONTINUE TO MONITOR.
[2019-05-19 08:34] VITALS: BP 124/52
[2019-05-19 12:42] VITALS: BP 114/50
[2019-05-19 13:19] VITALS: Ht 167.6 cm; Wt 94.8 kg
--- NOTE | 2019-05-19 14:26 | NUR ---
I have reviewed this patient and I concur with the Shift Assessment completed by the Licensed Practical Nurse today this shift.
--- NOTE | 2019-05-19 16:33 | NUR ---
DISCHARGED PATIENT HOME WITH FAMILY VIA WHEELCHAIR ACCOMPANIED BY STAFF. WENT OVER DISCHARGE INSTRUCTIONS WITH PATIENT, VERBALIZED UNDERSTANDING. CHANGED DRESSING TO LEFT KNEE PER PHYSICIAN ORDERS. SENT HOME EXTRA DRESSINGS PER AYALA. DENIES ANYTHING FURTHER.
--- NOTE | 2019-05-19 17:35 | MORECARE ---
CASE MANAGEMENT DISCHARGE SUMMARY PATIENT: ROSSY GREENE UNIT: [id number] ADM DATE: 05/16/19 AGE: 63 : [birth year] SEX: F ROOM/BED: D.2212 AUTHOR: GUMARO CLAY PHYSICIAN: REFERRING PHYSICIAN: ANGELICA AYALA DO DATE OF SERVICE: 05/19/19 Discharge Plan Patient Name: ROSSY GREENE Facility: [facility]:[place] : 1955 Planned Disposition: Home Health Service Anticipated Discharge Date: Discharge Date: 05/19/2019 Expected LOS: Initial Reviewer: [email or web address] Initial Review Date: 05/18/2019 Generated: 05/19/19 6:35 pm Comments DCP- Discharge Planning Updated by [email or web address]: Raisa Rico on 05/18/19 3:[address] Patient Name: ROSSY GERENE Admission Status: Urgent Accout number: [id number] Admission Date: 05-16-2019 : 1955 Admission Diagnosis: Attending: ANGELICA AYALA Current LOS: 2 Anticipated DC Date: Planned Disposition: Home Health Service Primary Insurance: MEDICARE A & B Discharge Planning Comments: CM MET WITH PATIENT AFTER OBTAINING VERBAL CONSENT. PLANS TO DC TO HOME TOMORROW. [facility] HH. REFERRAL FAXED. CM WILL FOLLOW AND ASSIST. Fuels Sales Representative: Raisa Rioc DCPIA - Discharge Planning Initial Assessment Updated by [email or web address]: Raisa Rico on 05/18/19 4:48 pm * Is the patient Alert and Oriented? Yes * PCP [facility] * [facility] * Preadmission Environment Home with Family * ADLs Independent * Other Equipment CMP, WALKER, BSC * Additional services required to return to the preadmission environment? Yes * Can the patient safely return to the preadmission environment? Yes * Has this patient been hospitalized within the prior 30 days at any hospital? No Coverage Notice Reviewer: [id number] - Raisa Rico Notice Issued Date-Time: 05/18/2019 17:03 Notice Type: Patient Choice Letter Notice Delivered To: Patient Relationship to Patient: Linen Room Worker Name: Delivery Method: HAND - Hand Delivered Luciana Days: Prior Verbal Notification: Recipient Understood Notice: Yes Recipient Signature: Yes Med Rec Note Co-signed by Attending: Coverage Notice Comment: [facility] HH Last DP export: 05/18/19 3:51 p Patient Name: ROSSY GREENE Page [phone] at 1735 All edits/amendments must be made on the electronic document DICTATION DATE: 05/19/191734 ETL CONSULTANT: TAMARA 05/19/191734 RPT#: [id number] DC DATE:05/19/19 STATUS: DIS IN [facility] [address] [place] [address] END OF REPORT
--- NOTE | 2019-05-31 11:03 | OP ---
PATIENT NAME: ROSSY SON MEDICAL RECORD: [id number] :[birth year] LOCATION:[id number] ADMISSION DATE:05/16/19 SURGEON: WILMER AYALA DO DATE OF OPERATION: 05/16/2019 PROCEDURE PERFORMED: Left total knee arthroplasty. PREOPERATIVE DIAGNOSIS: Left knee osteoarthritis. POSTOPERATIVE DIAGNOSIS: Left knee osteoarthritis. INDICATIONS: Ms. Son is a 63-year-old female who has suffered with left knee arthritis for quite some time. She has tried all manner of nonoperative treatment including injections and physical therapy at her home and she was tired of dealing with it and wanted to have something done surgically. She is aware of the risks including infection, bleeding, damage to nerves and vessels, blood clots, fracture, failure of implants and even and signed the consent. SURGEON: Wilmer Ayala DO BIOLOGICAL TECHNICAL OFFICER: Flaco Casey, advance nurse practitioner. He assisted in the procedure and it could not have been performed without him. DESCRIPTION OF PROCEDURE: The patient received a block by anesthesia in the preoperative area, was taken to the operative suite, laid in supine position, given general anesthetic and LMA was placed. The left lower extremity was then prepped and draped in sterile fashion. Timeout was performed, everyone was in agreeance with the correct side, site, patient and procedure. An incision was then marked out and covered in Ioban. The incision was then made with a 10-blade scalpel. Careful dissection was made down to the capsule and the medial parapatellar approach was used to go to the knee joint. The toe was then everted and part of the fat pad was removed and the patella was milled down to fit a prosthesis. Once that was completed, the knee was flexed up. The femoral canal was entered and ACL was then removed. Distal femur was then cut. This was removed and the proximal tibia was then cut, that was removed as well as the menisci. The knee was then brought to extension. Any bleeders were coagulated and any menisci remaining was removed. A 10 extension block fit very well. The knee was then flexed up and the femur was measured to be 60. A 4-in-1 cutting block was then put on. Nikita wing was used to make sure there was no notching and the femur was cut with 4-in-1 cutting block. I then put the trial in the femur and the tibia tray was floated in and marked for rotation. The patella was then drilled as well as the femur and the tibia was exposed. It was sized to be 71. It was drilled and punched and extra holes put in the tibia. The cement was then mixed, placed in the tibia after being thoroughly irrigated and on the implant. This was impacted into place. Excess cement was removed. The femur was then impacted on and 14 poly was put in between them. Knee was brought out to extension and the patella was cemented, it was put in the holes after being cleaned out and on the implant and this was put into place and the squeezer was held and the excess cement was removed. Any bleeding was coagulated with Aquamantys throughout this procedure. The knee was then thoroughly irrigated while cement dried. Once the cement had dried, we sized and a 16 poly was what we decide to put in and it fit very well and medial and lateral stability, good flexion and extension stability. This was then locked into place and then the Betadine mixture, diluted Betadine 10% providine iodine OPERATIVE REPORT [id number] ROSSY SON was put in 500 mL, 17 mL of povidone iodine was put in 500 mL and placed in the knee. This was scrubbed around including the skin and let set for 3 minutes. This was then irrigated out with over a liter of normal saline and then the capsule was closed with #2 Ethibond in [id number] fashion. Skin was then closed with 2-0 Vicryl in an inverted interrupted fashion by JESSICA García. We did put Jose and vancomycin and tobramycin powder inside the knee joint prior to closure of the capsule. Once the skin was closed with 2-0 Vicryl in an inverted interrupted fashion, a ZipLine was placed on the knee with Adaptic, 4 x 4s, ABD, Webril, Jose Ramon wrap and then GRISELDA stocking was placed up to the knee. The patient was awakened and taken to recovery in stable condition. Blood loss was approximately 200 mL. COMPLICATIONS: None. TRANSINT:[id number] Voice Confirmation ID: [id number] DOCUMENT ID: [id number] 05/31/2019 Edited for janusz Casey. WILMER AYALA DO at 1103 CC: [id number] DICTATION DATE: 05/16/1929 LOSS CONTROL REPRESENTATIVE: 05/16/19 1212 DIS IN 05/19/19 [facility] [address] [place] [address]
== END 2019-05-19 16:35 | disposition home health service (06) | DRG 470 ==
LOC: D.SDCHOLD 05-16 06:00 → D.MS 05-16 06:00 → D.SDCHOLD 05-16 07:00 → D.MS 05-16 10:02
PROVIDERS: Internal Medicine Nephrology; ADMIT Orthopaedic Surgery; ATTEND Orthopaedic Surgery
PROC: 0SRD0J9 Replacement of Left Knee Joint with Synthetic Substitute, Cemented, Open Approach (ICD-10-PCS; principal; 2019-05-16 08:00)
DX: M17.12 Unilateral primary osteoarthritis, left knee (principal); F41.8 Other specified anxiety disorders; I25.10 Atherosclerotic heart disease of native coronary artery without angina pectoris; Z85.3 Personal history of malignant neoplasm of breast; Z86.73 Personal history of transient ischemic attack (TIA), and cerebral infarction without residual deficits; H40.9 Unspecified glaucoma; Z86.711 Personal history of pulmonary embolism

== ENCOUNTER 2019-07-06 11:28 | Emergency (ER) | payer MEDICARE, OTHER ==
[~2019-07-06] VITALS: Ht 167.6 cm; Wt 86.2 kg
[~2019-07-06 11:28] MED LIST changes: +ALENDRONATE SOD35 MG PO; +BENTYL10 MG PO; +CIPRO500 MG PO; +CYANOCOBAL1000 MCG/4 SC; +MIRALAX17 GM PO; +OXYCODONE HCL5 M1 PO; +TYLENOL #4 W/CO1 TAB PO; +VISTARIL50 MG PO; +XALATAN 0.0052.5 ML EACH EYE; +ZOFRAN ODT4 MG/UDTAB PO
[2019-07-06 11:45] VITALS: Ht 167.6 cm; Wt 86.2 kg
[2019-07-06 12:27] LABS: BASOPHILS 0.2 % (0-2); EOSINOPHILS 2.2 % (0-7); HEMATOCRIT 37.1 % (36.0-48.0); HEMOGLOBIN 11.3 g/dL (12-16); IMMATURE GRANULOCYTES 0.2 % (0-5); LYMPHOCYTES 26.6 % (15-50); MCHC 30.5 g/dL (31.0-37.0); MCV 78.8 fL (80.0-100.0); MEAN PLATELET VOLUME 9.3 fL (7.4-10.4); MONOCYTES 11.4 % (2-11); NEUTROPHILS 59.4 % (40-80); PLATELET COUNT 319 10x3/uL (130-400); RBC 4.71 10x6/uL (4.00-5.40); RDW 14.4 % (11.5-14.5); WBC 6.3 10x3/uL (4.8-10.8)
[2019-07-06 12:29] LABS: CALC OSMOLALITY 278 mosm/kg (275-300); CALCIUM 9.1 mg/dL (8.5-10.1); CARBON DIOXIDE 26.6 mmol/L (21.0-32.0); CHLORIDE - SERUM 104 mmol/L (98-107); CREATININE - SERUM 0.7 mg/dL (0.6-1.3); GLUCOSE 106 mg/dL (74-106); INR 1.01 (0.85-1.17); POTASSIUM - SERUM 3.9 mmol/L (3.5-5.1); PROTIME 12.8 SECONDS (11.6-15.0); SODIUM 139 mmol/L (136-145); UREA NITROGEN 16 mg/dL (7-18); eGFR NON AFRICAN AMERICAN 89 mL/min (90-120)
[2019-07-06 12:30] LABS: APTT 25.7 SECONDS (22.8-39.4)
[2019-07-06 12:36] LABS: D-DIMER-QUANTITATIVE 1.09 ug/mLFEU (0.20-0.54)
[2019-07-06 12:37] LABS: ALBUMIN 3.6 g/dL (3.4-5.0); ALKALINE PHOSPHATASE 95 U/L (46-116); ALT (SGPT) 21 U/L (10-68); BILIRUBIN - TOTAL 0.34 mg/dL (0.2-1.3); PROTEIN - SERUM 7.2 g/dL (6.4-8.2); TROPONIN-I < 0.017 ng/mL (0.000-0.060)
[2019-07-06 16:16] VITALS: BP 136/70
== END 2019-07-06 16:10 | disposition home or self-care (01) ==
LOC: D.ER 11:28
PROVIDERS: Family Medicine
DX: R07.9 Chest pain, unspecified (principal); R06.02 Shortness of breath; Z96.652 Presence of left artificial knee joint; I48.91 Unspecified atrial fibrillation; I25.10 Atherosclerotic heart disease of native coronary artery without angina pectoris; Z86.73 Personal history of transient ischemic attack (TIA), and cerebral infarction without residual deficits

== ENCOUNTER 2019-10-28 18:49 | Emergency (ER) | payer MEDICARE, OTHER ==
[~2019-10-28] VITALS: Ht 167.6 cm; Wt 75.0 kg
[2019-10-28 18:50] VITALS: Ht 167.6 cm; Wt 75.0 kg
[2019-10-28 19:41] VITALS: BP 125/75
== END 2019-10-28 19:42 | disposition home or self-care (01) ==
LOC: D.ER 18:49
DX: S80.02XA Contusion of left knee, initial encounter (principal); V89.2XXA Person injured in unspecified motor-vehicle accident, traffic, initial encounter; Y93.9 Activity, unspecified; Y92.9 Unspecified place or not applicable; S80.01XA Contusion of right knee, initial encounter; S39.012A Strain of muscle, fascia and tendon of lower back, initial encounter; K21.9 Gastro-esophageal reflux disease without esophagitis; Z86.73 Personal history of transient ischemic attack (TIA), and cerebral infarction without residual deficits; M53.3 Sacrococcygeal disorders, not elsewhere classified

== ENCOUNTER 2020-03-01 11:17 | Inpatient (IN) | payer MEDICARE, OTHER ==
[2020-03-01] VITALS (7 sets, daily range): BP systolic 96–121; BP diastolic 46–64; BMI 28.8
[~2020-03-01] VITALS: Ht 167.6 cm; Wt 83.0 kg
--- NOTE | ~2020-03-01 | EC ---
PATIENT:ROSSY GREENE DATE OF SERVICE: 03/02/20 SEX: F MEDICAL RECORD: [id number] DATE OF : [birth year] LOCATION:D. D.211 AGE OF PATIENT: 64 ADMISSION DATE: 03/02/20 REFERRING PHYSICIAN: INTERPRETING PHYSICIAN: ROBERT HILL MD ECHOCARDIOGRAM REPORT ECHO CHARGES 4 ECHO COMPLETE Date: 03/02/20 CLINICAL DIAGNOSIS: CP ECHOCARDIOGRAPHIC MEASUREMENTS (adult normal given) AC root (d.<3.7cm) 2.5 cm LV Septum d (<1.2 cm> 0.7 cm Valve Excursion 1.2 cm LV Septum (systole) 1.3 cm Left Atria (s.<4.0cm> 3.3 cm LVPW d(<1.2cm) 1.2 cm RV (d.<2.3cm) 3.3 cm LVPW (sytole) 1.4 cm LV diastole(<5.6CM) 5.7 cm MV E-F(>70mm/sec) cm LV systole 4.0 cm LVOT Diameter 1.6 cm MV exc.(>10mm) cm Est.ejection fraction (50-75%) % DOPPLER: LVIT cm/sec A 115 cm/sec E 104 cm/sec LA cm/sec RVSP 17.9 mmHg LVOT 106 cm/sec AOP1/2T m/s Asc. Ao 236 cm/sec RVOT 82 cm/sec RA cm/sec PA 94 cm/sec AV Gradient Peak 22.3 mmHg AV Mean 11.7 mmHg AV Area 0.9 cm MV Gradient Peak 5.5 mmHg MV Mean 3.1 mmHg MV Area cm COMMENTS: Refrigeration Installer: Av HOLLIS Corn Husker: 4 Dr. Hill TAPE# PACS Pericardial Effusion N DATE OF SERVICE: PROCEDURE: Transthoracic echocardiogram. FINDINGS: 1. Left ventricle shows mild left ventricular hypertrophy. Ejection fraction is 55% to 60%. 2. Left atrium is normal. 3. Aortic valve is normal. 4. Mitral valve is normal. ECHOCARDIOGRAM REPORT [id number] ROSSY GREENE 5. Tricuspid valve is normal. 6. Pericardium is normal. 7. Right ventricle is normal. 8. Right atrium is normal. 9. Pulmonic valve is normal. 10. No pericardial effusion. TRANSINT:[id number] Voice Confirmation ID: [id number] DOCUMENT ID: [id number] ROBERT HILL MD CC: [id number] DICTATION DATE: 03/03/20 1058 PACKAGE YARNS DRYING MACHINE OPERATOR: 03/03/20 1530 DIS IN 03/03/20 [id number] [place] [address]
--- NOTE | ~2020-03-01 | ST ---
PATIENT:ROSSY GREENE MEDICAL RECORD: [id number] SEX: F [facility] ORDER #: ADMISSION DATE: 03/02/20 AGE OF PATIENT: 64 REFERRING PHYSICIAN: INTERPRETING PHYSICIAN: ROBERT HILL MD DATE OF SERVICE: 03/03/2020 PROCEDURE PERFORMED: Lexiscan directed stress test. PROCEDURE IN DETAIL: The patient was brought into the nuclear lab. The patient was placed in the supine position on the nuclear table. The patient had Lexiscan injected without complications. The patient had rest and stress sestamibi injected. Gated imaging showed ejection fraction of 80%. SPECT imaging showed no evidence of ischemia or infarction. IMPRESSION: This is a normal nuclear stress test. TRANSINT:[id number] Voice Confirmation ID: [id number] DOCUMENT ID: [id number] ROBERT HILL MD CC: [id number] DICTATION DATE: 03/03/20 1110 EMANATIONS ANALYSIS TECHNICIAN: 03/04/20 0057 DIS IN 03/03/20 [facility] [address] [place] [address]
[2020-03-01] MEDS ORDERED: TYLENOL W/CODEI1 TAB PO (11:38)
--- NOTE | 2020-03-01 13:00 | NUR ---
C/O WORSENING CP. BP LOW DR ROPER NOTIFIED
[2020-03-01 13:19] LABS: CALC OSMOLALITY 278 mosm/kg (275-300); CALCIUM 9.1 mg/dL (8.5-10.1); CARBON DIOXIDE 28.4 mmol/L (21.0-32.0); CHLORIDE - SERUM 106 mmol/L (98-107); CREATININE - SERUM 0.7 mg/dL (0.6-1.3); GLUCOSE 81 mg/dL (74-106); POTASSIUM - SERUM 3.8 mmol/L (3.5-5.1); SODIUM 140 mmol/L (136-145); UREA NITROGEN 16 mg/dL (7-18); eGFR NON AFRICAN AMERICAN 89 mL/min (90-120)
[2020-03-01 13:31] LABS: APTT 26.3 SECONDS (22.8-39.4); INR 0.93 (0.85-1.17); PROTIME 12.4 SECONDS (11.6-15.0)
[2020-03-01 13:35] LABS: BASOPHILS 0.2 % (0-2); EOSINOPHILS 1.5 % (0-7); HEMATOCRIT 41.3 % (36.0-48.0); HEMOGLOBIN 12.8 g/dL (12-16); IMMATURE GRANULOCYTES 0.3 % (0-5); LYMPHOCYTES 20.7 % (15-50); MCH 24.5 pg (26.0-34.0); MCV 79.1 fL (80.0-100.0); MEAN PLATELET VOLUME 9.4 fL (7.4-10.4); MONOCYTES 6.1 % (2-11); NEUTROPHILS 71.2 % (40-80); PLATELET COUNT 346 10x3/uL (130-400); RBC 5.22 10x6/uL (4.00-5.40); RDW 16.2 % (11.5-14.5); WBC 9.2 10x3/uL (4.8-10.8)
[2020-03-01 13:36] LABS: ALBUMIN 3.8 g/dL (3.4-5.0); ALKALINE PHOSPHATASE 95 U/L (30-120); ALT (SGPT) 26 U/L (10-68); BILIRUBIN - TOTAL 0.25 mg/dL (0.2-1.3); CKMB 0.8 U/L (0.0-3.6); CREATINE KINASE 97 UL (21-215); PROTEIN - SERUM 7.9 g/dL (6.4-8.2); TROPONIN-I < 0.017 ng/mL (0.000-0.060)
[2020-03-01 15:21] LABS: CKMB 0.6 U/L (0.0-3.6); CREATINE KINASE 87 UL (21-215)
--- NOTE | 2020-03-01 15:28 | NUR ---
REPORT TO NIKO NEWMAN
[2020-03-01 15:30] LABS: TROPONIN-I < 0.017 ng/mL (0.000-0.060)
--- NOTE | 2020-03-01 16:48 | NUR ---
RECEIVED PT FROM ER. PT IS AAO AND UP AD THANH. FALL PRECAUTIONS IN PLACE. CALL LIGHT W/I REACH. PT ORIENTED TO ROOM. PIV SALINE LOCKED. VSS AND WNL. RR EVEN AND UNLABORED ON RA. QUICKSTART, HISTORY, AND ASSESSMENT COMPLETED. PT STATES SHE WILL HAVE UPDATED MED LIST BROUGHT TO HOSPITAL. PT DENIES ANY CHEST PAIN OR NEEDS AT THIS TIME. TELEMETRY PLACED. WILL CTM.
--- NOTE | 2020-03-01 20:00 | NUR ---
INITIAL ROUNDS COMPLETED. PT ALERT/ORIENTED AND RESTING IN BED. SR PER TELEMETRY. PIV TO LEFT A/C SALINE LOCKED. CPOC.
[2020-03-02 03:11] LABS: BASOPHILS 0.3 % (0-2); EOSINOPHILS 2.7 % (0-7); HEMATOCRIT 37.6 % (36.0-48.0); HEMOGLOBIN 11.5 g/dL (12-16); IMMATURE GRANULOCYTES 0.3 % (0-5); LYMPHOCYTES 26.1 % (15-50); MCH 24.3 pg (26.0-34.0); MCHC 30.6 g/dL (31.0-37.0); MCV 79.3 fL (80.0-100.0); MONOCYTES 8.6 % (2-11); PLATELET COUNT 278 10x3/uL (130-400); RBC 4.74 10x6/uL (4.00-5.40); RDW 16.2 % (11.5-14.5); WBC 7.4 10x3/uL (4.8-10.8)
[2020-03-02 03:29] LABS: CALC OSMOLALITY 284 mosm/kg (275-300); CALCIUM 8.5 mg/dL (8.5-10.1); CARBON DIOXIDE 25.6 mmol/L (21.0-32.0); CHLORIDE - SERUM 109 mmol/L (98-107); CKMB 0.6 U/L (0.0-3.6); CREATINE KINASE 90 UL (21-215); CREATININE - SERUM 0.8 mg/dL (0.6-1.3); GLUCOSE 111 mg/dL (74-106); PHOSPHOROUS 3.2 mg/dL (2.5-4.9); POTASSIUM - SERUM 4.3 mmol/L (3.5-5.1); SODIUM 142 mmol/L (136-145); UREA NITROGEN 14 mg/dL (7-18); eGFR NON AFRICAN AMERICAN 76 mL/min (90-120)
[2020-03-02 03:30] LABS: TROPONIN-I < 0.017 ng/mL (0.000-0.060)
[2020-03-02 04:00] VITALS: BP 113/55
[2020-03-02 08:13] VITALS: BP 127/65
[2020-03-02 10:04] VITALS: Ht 167.6 cm; Wt 83.0 kg
[2020-03-02 12:00] VITALS: BP 184/61
[2020-03-02 16:00] VITALS: BP 117/62
[2020-03-02 20:00] VITALS: BP 111/52
[2020-03-02 21:07] LABS: BILIRUBIN NEGATIVE (NEGATIVE); GLUCOSE NEGATIVE (NEGATIVE); KETONE NEGATIVE (NEGATIVE); NITRITE NEGATIVE (NEGATIVE); UROBILINOGEN NORMAL (NORMAL)
[2020-03-02 21:08] LABS: BACTERIA FEW /hpf (NEGATIVE); EPITHELIAL CELLS 0-5 /hpf (0-5); RED CELLS - URINE 0-5 /hpf (0-5); WHITE CELLS - URINE 0-5 /hpf (NEGATIVE)
--- NOTE | 2020-03-02 21:52 | NUR ---
PM MEDICATIONS ADMININSTERED. NO S/S OF DISTRESS NOTED. PT DENIES ANY NEEDS AT THIS TIME. WILL CTM.
--- NOTE | 2020-03-02 23:00 | NUR ---
ASSUMMED CARE OF PATIENT AT 2300. REPORT RECIEVED. PT RESTING IN BED WITH NO DISTRESS. SR UP X 2, CALL LIGHT IN REACH. CPOC.
--- NOTE | 2020-03-02 23:30 | NUR ---
PT CALLED TO NURSE THAT SHE WAS FEELING NAUSEATED. MEDICATED WITH ZOFRAN 4MG SIVP. PT ANXIOUS ABOUT US OF GALLBLADDER IN AM, PLUS BEING AWAY FROM HER GRANDDAUGHTER. PROVIDED ATIVAN TABLET FOR HER ANXIETY. CPOC. SR PER TELEMETRY.
--- NOTE | 2020-03-02 23:45 | NUR ---
PT FEELING BETTER AND REQUESTING SNACK. PROVIDED SNACK AND PT NOW EATING AND RESTING IN BED.
[2020-03-03] VITALS: BP 106/53
--- NOTE | 2020-03-03 01:00 | NUR ---
PT HAS BEEN RESTING SINCE EARLIER MEDS GIVEN. RESPS EVEN/NONLABORED. PT IS NPO FOR AM US OF GALLBLADDER.
[2020-03-03 04:00] VITALS: BP 119/63
[2020-03-03 06:19] LABS: BASOPHILS 0.1 % (0-2); EOSINOPHILS 2.5 % (0-7); HEMOGLOBIN 12.2 g/dL (12-16); IMMATURE GRANULOCYTES 0.3 % (0-5); LYMPHOCYTES 19.1 % (15-50); MCH 23.9 pg (26.0-34.0); MCHC 30.5 g/dL (31.0-37.0); MCV 78.4 fL (80.0-100.0); MEAN PLATELET VOLUME 9.3 fL (7.4-10.4); MONOCYTES 8.2 % (2-11); NEUTROPHILS 69.8 % (40-80); PLATELET COUNT 316 10x3/uL (130-400); RDW 15.9 % (11.5-14.5); WBC 7.2 10x3/uL (4.8-10.8)
[2020-03-03 06:40] LABS: ALBUMIN 3.3 g/dL (3.4-5.0); ALKALINE PHOSPHATASE 90 U/L (30-120); ALT (SGPT) 22 U/L (10-68); BILIRUBIN - TOTAL 0.27 mg/dL (0.2-1.3); CALC OSMOLALITY 281 mosm/kg (275-300); CALCIUM 9.5 mg/dL (8.5-10.1); CARBON DIOXIDE 29.4 mmol/L (21.0-32.0); CHLORIDE - SERUM 105 mmol/L (98-107); CREATININE - SERUM 0.7 mg/dL (0.6-1.3); GLUCOSE 107 mg/dL (74-106); POTASSIUM - SERUM 4.5 mmol/L (3.5-5.1); PROTEIN - SERUM 6.5 g/dL (6.4-8.2); SODIUM 141 mmol/L (136-145); UREA NITROGEN 14 mg/dL (7-18); eGFR NON AFRICAN AMERICAN 89 mL/min (90-120)
[2020-03-03 08:00] VITALS: BP 121/63
[2020-03-03] MEDS ORDERED: PROTONIX40 MG PO (15:07)
--- NOTE | 2020-03-03 15:25 | NUR ---
IV AND TELEMETRY DCD. DC PLANS GIVEN. UNDERSTANDING VOICED. ESCORTED TO CAR BY W/C.
== END 2020-03-03 15:26 | disposition home or self-care (01) | DRG 392 ==
LOC: D.ER 11:17 → D.M2 14:14 → OBSVTIME 14:14 → D.M2 14:14
PROVIDERS: Family Medicine; ADMIT Family Medicine Adult Medicine; ATTEND Family Medicine Adult Medicine
DX: K22.4 Dyskinesia of esophagus (principal); I25.119 Atherosclerotic heart disease of native coronary artery with unspecified angina pectoris; K21.9 Gastro-esophageal reflux disease without esophagitis; I10 Essential (primary) hypertension; Z85.3 Personal history of malignant neoplasm of breast; Z86.73 Personal history of transient ischemic attack (TIA), and cerebral infarction without residual deficits

== ENCOUNTER → 2020-05-01 | Emergency (ER) | payer MEDICARE, OTHER ==
[2020-03-02 10:04] VITALS: BMI 28.8
[~2020-05-01] MED LIST changes: +PROTONIX40 MG PO; +TYLENOL W/CODEI1 TAB PO
== END ==
LOC: D.ER 22:40
DX: R07.9 Chest pain, unspecified (principal)

== ENCOUNTER → 2020-12-04 11:10 | Outpatient (CLI) | payer MEDICARE, OTHER ==
[2020-08-15 08:47] VITALS: BMI 29.6
[~2020-12-04 11:10] MED LIST changes: +ASPIRIN325 MG PO; -ATIVAN0.5 MG PO; +ATIVAN1 MG PO; +BETAPACE 80 MG80 MG PO; +ELIQUIS5 MG PO; +ISOSORBIDE MONO30 M1 PO; +LIPITOR20 MG PO; +MECLIZINE HCL25 MG PO; +VENTOLIN HFA [SP8 GM; +ZITHROMAX500 MG PO
--- NOTE | 2020-12-05 08:19 | EC ---
PATIENT:ROSSY GREENE DATE OF SERVICE: 12/04/20 SEX: F MEDICAL RECORD: [id number] DATE OF : [birth year] LOCATION:[facility] AGE OF PATIENT: 65 ADMISSION DATE: 12/04/20 REFERRING PHYSICIAN: INTERPRETING PHYSICIAN: IKE POSEY MD ECHOCARDIOGRAM REPORT ECHO CHARGES 4 ECHO COMPLETE Date: 12/04/20 CLINICAL DIAGNOSIS: CAD/ATRIAL FIB ASSESS EF AND VALVES ECHOCARDIOGRAPHIC MEASUREMENTS (adult normal given) AC root (d.<3.7cm) 2.8 cm LV Septum d (<1.2 cm> 1.0 cm Valve Excursion 1.4 cm LV Septum (systole) 1.1 cm Left Atria (s.<4.0cm> 4.5 cm LVPW d(<1.2cm) 1.2 cm RV (d.<2.3cm) 3.1 cm LVPW (sytole) 1.4 cm LV diastole(<5.6CM) 5.0 cm MV E-F(>70mm/sec) cm LV systole 3.7 cm LVOT Diameter 1.5 cm MV exc.(>10mm) 1.6 cm Est.ejection fraction (50-75%) % DOPPLER: LVIT cm/sec A 99.0 cm/sec E 137.0 cm/sec LA cm/sec RVSP 30 mmHg LVOT 111 cm/sec AOP1/2T m/s Asc. Ao 237 cm/sec RVOT 71 cm/sec RA cm/sec PA 151 cm/sec AV Gradient Peak 22.41mmHg AV Mean 11.08mmHg AV Area 1.6 cm MV Gradient Peak 9.07 mmHg MV Mean 3.25 mmHg MV Area cm COMMENTS: Book Canvasser: 2 RAJ KING Sales Account Leader: 3 Dr. Rosales TAPE# PACS Pericardial Effusion N DATE OF SERVICE: Adequate 2D, color flow imaging, spectral Doppler, and M-Mode. No LVH. LV internal dimensions are normal. Wall motion normal. EF greater than or equal to 55%. Aortic valve is sclerotic with mildly elevated velocities, peak velocity of 22 mmHg putting this in mild range. Left atrium is mildly dilated at 4.5 cm. Mitral valve shows no prolapse. Trace MR. Right-sided chambers are grossly normal. Mild TR. ECHOCARDIOGRAM REPORT [id number] ROSSY GREENE TRANSINT:[id number] Voice Confirmation ID: [id number] DOCUMENT ID: [id number] IKE POSEY MD at 0819 CC: [id number] DICTATION DATE: 12/04/20 163 LOCUM TENENS PSYCHIATRIST: 12/05/20 0007 DEP CLI 12/04/20 [id number] [place] [id number]
== END | disposition home or self-care (01) ==
LOC: D.HCCECHO 12-03 08:30
PROVIDERS: ATTEND Internal Medicine Interventional Cardiology
DX: I25.10 Atherosclerotic heart disease of native coronary artery without angina pectoris (principal)